=== PATIENT | female | born 1995 | race Caucasian/White ===

== ENCOUNTER 2019-03-31 14:32 | Emergency (ER) | payer BC, SELFPAY ==
[2019-03-31 14:41] VITALS: BP 105/67; PULSE 124; RESP 16; TEMP 37.9; O2SAT 100
--- NOTE | 2019-03-31 14:42 | ED.ABDPAIN ---
HPI - Abdominal Pain General Chief Complaint: Nausea/Vomiting/Diarrhea Stated Complaint: Abdominal pain,nausea,diarrhea Source: patient and RN notes reviewed Mode of arrival: ambulatory Limitations: no limitations History of Present Illness HPI narrative: This is a 23 years old female presented office for evaluation of diarrhea since yesterday. Diarrhea described as loose stool, very frequently, have more than 12 stools so far. Associated with lower abdominal pain/cramping, headache. Last meal intake at 1pm; able to keep food down. She had roast beef sandwich for lunch. She took 1 dose of Pepto-Bismol with no changes. Denies chance of . Denies sick contact. Related Data Home Medications Medication Instructions Recorded Confirmed loratadine [Claritin] 10 mg PO DAILY 03/31/19 03/31/19 montelukast [Singulair] 10 mg PO DAILY 03/31/19 03/31/19 norethindrone-e.estradiol-iron 1 tablet PO DAILY 03/31/19 03/31/19 [03/19 (28)] pantoprazole [Protonix] 40 mg PO DAILY 03/31/19 03/31/19 Allergies Allergy/AdvReac Type Severity Reaction Status Date / Time Cephalosporins Allergy Unknown Hives Verified 03/31/19 14:47 cobalt Allergy Unknown Unknown Verified 02/06/19 22:52 nickel Allergy Unknown Unknown Verified 02/06/19 22:52 Review of Systems Review of Systems: Narrative: CONSTITUTIONAL: Denies fever. Reports feeling weak. ENT: Denies congestion CARDIOVASCULAR: Denies chest pain RESPIRATORY: Denies cough GASTROINTESTINAL: Reports abdominal pain, nausea, diarrhea. Dnies bloody stools or vomiting. GENITOURINARY: Denies urinary symptoms SKIN: Denies rash MUSCULOSKELETAL: Denies acute back pain NEUROLOGIC: Denies lightheaded/passing out. Reports headache PMFSH Surgical History Surgical History Hx of tonsillectomy Family History Family History Mother Hypertension Grandparent Carcinoma of colon Family history of type 2 diabetes mellitus Social History Social History Smoking status: Never smoker Alcohol intake: never Gender identity (if verbalized by the patient): Female Comments At time of signature, I agree with nursing past medical, surgical, social and family history. There is no relevant family history pertinent to the presenting complaint. Exam Narrative: Exam Narrative: GENERAL: This is a well-nourished, well-developed patient,ill apparent but not in acute distress. EARS: External ears normal, auditory canals clear and without drainage, TMs normal without perforation. Hearing grossly intact. NOSE: External nose normal with no obvious nasal discharge, nares without redness, no rhinorrhea. THROAT: Mucous membranes moist, posterior pharynx clear. NECK: Neck supple, non-tender without lymphadenopathy, masses or thyromegaly. CARDIOVASCULAR: Regular rate and rhythm without murmurs, gallops, or rubs. RESPIRATORY: Clear to auscultation. Breath sounds equal bilaterally. No wheezes, rales, or rhonchi. GASTROINTESTINAL: Abdomen soft, tenderness throughout especially in right lower quadrant, nondistended. Bowel sounds are active. No rebound tenderness. No hepato-splenomegaly, or palpable masses. Patient is guarding, appears uncomfortable. NEURO: awake, alert, and oriented to person, place and time. There were no obvious focal neurologic abnormalities. Steady gait Juan Coma Scale Eye Opening: Spontaneous 4 Juan Coma Scale Motor: Obeys Commands 6 [place] Coma Scale Verbal: Oriented 5 Course Vital Signs Vital signs: Vital Signs Temperature 100.2 F H 03/31/19 14:41 Pulse Rate 124 H 03/31/19 14:41 Respiratory Rate 16 03/31/19 14:41 Blood Pressure 105/67 03/31/19 14:41 Pulse Oximetry 100 03/31/19 14:41 Temperature 100.2 F H 03/31/19 14:41 Pulse Rate 124 H 03/31/19 14:41 Respiratory Rate 16 03/31/19 14:41 Bloo
== END 2019-03-31 14:58 | disposition short-term general hospital (02) ==
PROVIDERS: Emergency Provider Nurse Practitioner; PCP Family Medicine
DX: E86.0 Dehydration (principal); R19.7 Diarrhea, unspecified
CPT/HCPCS: 99212; G0463

== ENCOUNTER 2019-03-31 15:13 | Emergency (ER) | payer BC, SELFPAY ==
--- NOTE | ~2019-03-31 | CT_ITS ---
EXAMINATION: CT abdomen pelvis w con DATE: 03/31/2019 17:10 INDICATION: Right lower quadrant pain. Fever. Tachycardia. TECHNIQUE: Computed tomography (CT) of the abdomen and pelvis was performed with 100 cc Omnipaque 350 intravenous contrast. The dose-length product was 273.12 mGy-cm. Automated exposure control and iter ative reconstruction technique were employed. COMPARISON: None. FINDINGS: Lung bases unremarkable. No significant pleural or pericardial effusion. Heart size is norm al. The liver, spleen, pancreas, adrenal glands and kidneys are unremarkable. Gallbladder is present. No significant vascular abnormality. Mildly prominent left periaortic lymph nodes are likely reactive. N o abnormal pelvic masses or fluid collections. Bladder is unremarkable. No bowel obstruction. The russell endix is not positively visualized. There is no pericecal inflammatory change to suggest appendiciti s. There is mild thickening of the descending and sigmoid colon, suspicious for colitis. No acute oss eous abnormality. IMPRESSION: 1. Mild thickening of the descending and sigmoid colon, suspicious for colitis, possibly infectious o r inflammatory. Reviewed, dictated and finalized at location A. LE WORKER IMPRESSION: 1. Mild thickening of the descending and sigmoid colon, suspicious for colitis, possibly infectious or inflammatory.
[2019-03-31 15:15] VITALS: BP 102/80; PULSE 131; RESP 16; TEMP 37.6; O2SAT 100
[2019-03-31 15:38] LABS: Basophils Percent Auto 0.3 % (0.2-1.2); Eosinophils Absolute Auto 0.1 K/mm3 (0-0.3); Eosinophils Percent Auto 0.5 % (0-4.4); Hemoglobin 13.7 g/dL (12.0-15.0); Immature Granulocyte Absolute 0.07 K/mm3 (0.00-0.031); Immature Granulocyte Percent A 0.5 % (0-0.5); Lymphocytes Absolute Auto 1.68 K/mm3 (0.9-3.2); Lymphocytes Percent Auto 12.7 % (18.3-44.2); Mean Corpuscular HGB Conc 31.1 g/dl (32-36); Mean Platelet Volume 9.6 fl (7.4-10.4); Monocytes Absolute Auto 0.5 K/mm3 (0.1-0.6); Monocytes Percent Auto 3.9 % (2.6-8.5); Neutrophils Absolute Auto 10.9 K/mm3 (1.3-6.7); Neutrophils Percent Auto 82.1 % (45.5-73.1); Platelet Count Result 317 k/mm3 (150-375); Red Blood Count 4.89 M/mm3 (4.2-5.4); Red Cell Distribution Width 12.8 % (11.5-14.5); White Blood Count 13.3 K/mm3 (4.5-10.0)
[2019-03-31 15:44] LABS: Alanine Aminotransferase 15 U/L (4-35); Albumin Level 4.7 g/dL (3.5-5.1); Alkaline Phosphatase 81 U/L (38-126); Aspartate Amino Transferase 25 U/L (14-36); Bilirubin,Total 0.8 mg/dL (0.2-1.3); Blood Urea Nitrogen 10 mg/dL (7-17); Calcium 9.3 mg/dL (8.4-10.2); Carbon Dioxide 23 mmol/L (22-30); Chloride 97 mmol/L (98-107); Estimated CRCL calculation 90 ml/min; Estimated Glomerular Filt Rate > 60; Glucose 102 mg/dL (65-105); Lipase 70 U/L (23-300); Potassium 3.3 mmol/L (3.4-5.0); Sodium 137 mmol/L (137-145)
[2019-03-31 15:56] LABS: Add Urine Microscopic? YES; Appearance Urine Clear (Clear); Bilirubin Urine Negative (Negative); Blood Urine 1+ (Negative); Color Urine Yellow (Yellow); Glucose Urine UA Negative (Negative); Ketones Urine Negative (Negative); Leukocyte Esterase Ur 2+ LEU/UL (Negative); Mucus Urine Few /lpf; Nitrate Urine Negative (Negative); Protein Urine 1+ mg/dL (Negative); Squamous Epithelial Cell Urine Many /hpf (Few); Urobilinogen Urine Negative mg/dL (<2.0)
[2019-03-31 16:07] LABS: Specific Grav Ur 1.035 (1.001-1.035)
--- NOTE | 2019-03-31 16:23 | ED.ABDPAIN ---
HPI - Abdominal Pain General Chief Complaint: Abdominal Pain Stated Complaint: abd cramping Time Seen by Provider: 03/31/19 16:13 Source: patient and RN notes reviewed Mode of arrival: ambulatory Limitations: no limitations History of Present Illness HPI narrative: Pt is a 23 y/o female presenting to the ED c/o ABD pain. Pt reports she started experiencing diffuse ABD pain worst in her RLQ yesterday. Pt also reports low grade fever, nausea, and diarrhea, but denies vaginal discharge or abnormal vaginal bleeding. Pt states she ended her menstrual cycle last . Pt also denies a Hx of ovarian cyst. 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 Pertinent past history: none Onset (ago): day(s) (1) Location: diffuse Associated symptoms: nausea, diarrhea and fever (Low grade) Related Data Home Medications Medication Instructions Recorded Confirmed loratadine [Claritin] 10 mg PO DAILY 03/31/19 03/31/19 montelukast [Singulair] 10 mg PO DAILY 03/31/19 03/31/19 norethindrone-e.estradiol-iron 1 tablet PO DAILY 03/31/19 03/31/19 [03/19 (28)] pantoprazole [Protonix] 40 mg PO DAILY 03/31/19 03/31/19 Allergies Allergy/AdvReac Type Severity Reaction Status Date / Time Cephalosporins Allergy Unknown Hives Verified 03/31/19 14:47 cobalt Allergy Unknown Unknown Verified 02/06/19 22:52 nickel Allergy Unknown Unknown Verified 02/06/19 22:52 Review of Systems Review of Systems: Narrative: CONSTITUTIONAL: Reports low grade fever. GASTROINTESTINAL: Reports diffuse ABD pain worst in RLQ, diarrhea, and nausea. GENITOURINARY: Denies vaginal discharge or abnormal vaginal bleeding. All systems reviewed & are unremarkable except as noted in HPI and below PMFSH Past Medical History Medical History Seasonal allergies Surgical History Surgical History H/O wisdom tooth extraction Hx of tonsillectomy Family History Family History Mother Hypertension Grandparent Carcinoma of colon Family history of type 2 diabetes mellitus Social History Social History Smoking status: Never smoker Alcohol intake: never Gender identity (if verbalized by the patient): Female Exam Narrative: Exam Narrative: GENERAL: Well-appearing, well-nourished, and in no acute distress. EYES: EOMI. NECK: Supple. CHEST: Clear to auscultation. No respiratory distress. HEART:Tachycardic rate and rhythm. No murmur heard. Normal peripheral pulses. ABDOMEN: Soft, RLQ tenderness, nondistended, normal active bowel sounds. Positive Rovsing's sign. EXTREMITIES: Normal range of motion. No edema. SKIN: Warm, dry, no rash. NEURO: No focal deficits. Alert and oriented. Course Course Emergency Course: Patient presented for evaluation of abdominal pain. At the time of initial assessment, ABCs are intact and vital signs are stable. Vital signs are notable for tachycardia. Patient is not febrile. IV access obtained and labs are drawn. Patient was given 2 L of IV fluids, antiemetic and pain medication with good improvement in her symptoms. Patient with a leukocytosis. Very mild hypokalemia. No UTI. CT scan concerning for colitis. No evidence of appendicitis despite clinical symptoms. Patient was reassessed and felt much improved. Her tachycardia had improved. She is able to tolerate oral intake without vomiting. I did call general surgeon who reviewed her CT scan, spoke with him about clinical findings, and he feels that her exam is probably consistent with colitis and not with appendicitis at this point. Shared decision-making occurred with the patient and family, she opted for discharge home with oral antibiotics, and to return if her pain worsens or she has any other concerning symptoms. Patient was then discharged home in stable condition. Vital Signs Vital signs: Vital
[2019-03-31] MEDS: DICYCLOMINE HCL INJ 20 MG/2 ML VIAL IM (16:44)
[2019-03-31] MEDS: MORPHINE SULFATE 4 MG/ML INJ IV PUSH (16:50)
[2019-03-31] MEDS: METOCLOPRAMIDE HCL INJ 10 MG/2 ML VIAL IV PUSH (16:50)
[2019-03-31] MEDS: SODIUM CHLORIDE 0.9% IV 1,000 ML 999 ML IV CONT ×2 (16:54→16:55)
[2019-03-31] MEDS: metroNIDAZOLE 500 MG/ISO 100ML 500 MG/100 ML BAG 100 MG IVPB (18:20)
[2019-03-31 18:50] VITALS: BP 101/62; PULSE 115; RESP 14; TEMP 37.7; O2SAT 100
[2019-03-31] MEDS: POTASSIUM CHLORIDE 20 MEQ PACKET (FOR LIQUID) 40 MEQ PO (18:57)
[2019-03-31] MEDS: levoFLOXacin 500 MG/D5W 100 ML 500 MG/100 ML BAG 100 MG IVPB (19:06)
--- NOTE | 2019-03-31 19:07 | PC.NURSE ---
Pt. requested 2nd IV to have 2nd ABX running. EDP notified and is ok with request.
[2019-03-31] MEDS: ONDANSETRON INJ 4 MG/2 ML VIAL IV PUSH (19:34)
--- NOTE | 2019-04-05 08:52 | PC.NURSE ---
LATE ENTRY This note is being entered to document information to the patient's record. The following information was omitted on [03/31/19], by [Maged Bangura]. Pt. antibiotic infused at 1950.
== END 2019-03-31 21:14 | disposition home or self-care (01) ==
PROVIDERS: Emergency Medicine; Emergency Provider Emergency Medicine; PCP Family Medicine
DX: K52.9 Noninfective gastroenteritis and colitis, unspecified (principal); E86.0 Dehydration
CPT/HCPCS: 36415; 74177; 80053; 81001; 81025; 83690; 85025; 96361; 96365; 96367; 96372; 96375; 99284; A9270; J0500; J1956; J2270; J2405; J2765; J7030; Q9967

== ENCOUNTER 2019-06-06 10:22 | Emergency (ER) | payer BC, SELFPAY ==
[2019-06-06 10:28] VITALS: BP 137/81; PULSE 113; RESP 20; TEMP 36.4; O2SAT 100
--- NOTE | 2019-06-06 10:41 | ED.URI ---
HPI - URI/Sore Throat General Chief Complaint: Upper Respiratory Infection Stated Complaint: sore throat History of Present Illness HPI Narrative: This is a 23 year old that comes in with a sore throat that she has had for 7 days patient was put on zpak Tuesday but has come in because she come in due to patient states that her throat is worse and has white stuff on her tonsils . Patient denies fever, shortness of breath just pain . Related Data Home Medications Medication Instructions Recorded Confirmed loratadine [Claritin] 10 mg PO DAILY 03/31/19 03/31/19 montelukast [Singulair] 10 mg PO DAILY 03/31/19 03/31/19 norethindrone-e.estradiol-iron 1 tablet PO DAILY 03/31/19 03/31/19 [03/19 (28)] pantoprazole [Protonix] 40 mg PO DAILY 03/31/19 03/31/19 alendronate-vitamin D3 1 tablet PO WEEKLY 06/06/19 06/06/19 azithromycin 06/06/19 Allergies Allergy/AdvReac Type Severity Reaction Status Date / Time Cephalosporins Allergy Unknown Hives Verified 03/31/19 14:47 cobalt Allergy Unknown Unknown Verified 02/06/19 22:52 nickel Allergy Unknown Unknown Verified 02/06/19 22:52 Review of Systems Review of Systems: Narrative: CONSTITUTIONAL: Denies fever, chills, or sweats. EYES: Denies visual changes, redness, or discharge. ENT: Denies rhinorrhea, congestion, positive sore throat, or otalgia. CARDIOVASCULAR:Denies chest pain, palpitations, or edema. RESPIRATORY: Denies cough or dyspnea. GASTROINTESTINAL: Denies abdominal pain, nausea, vomiting, or diarrhea. GENITOURINARY: Denies dysuria or hematuria. SKIN:Denies rash or itching. MUSCULOSKELETAL:Denies back pain, joint pain, or myalgia. NEUROLOGIC: Denies headache, numbness, or weakness. PSYCHIATRIC:Denies anxiety or depression [facility] Social History Social History Smoking status: Never smoker Alcohol intake: never Gender identity (if verbalized by the patient): Female Comments At time as signature, I have reviewed and agree with nursing past medical, social, surgical and family history. Please see nursing chart for further information. There is no relevant family history pertinent to the presenting complaint. Exam Narrative: Exam Narrative: GENERAL:Well-appearing, well-nourished, and in no acute distress. HEAD:Normocephalic, atraumatic. EYES: PERRLA and EOMI. ENT: Nares clear, no rhinorrhea or epistaxis. Mucous membranes moist. Pharyngeal erythema left-sided tonsil exudate NECK: Supple. CHEST: Clear to auscultation. No respiratory distress. HEART: Regular rate and rhythm. No murmur heard. Normal peripheral pulses. ABDOMEN: Soft, nontender, nondistended, normal active bowel sounds. EXTREMITIES: Normal range of motion. No edema. SKIN: Warm, dry, no rash. NEURO: No focal deficits. Alert and oriented x3. Course OFFICE ADMINISTRATIVE ASSISTANT/PA Physician Supervision Discussed with patient about gargling warm salt water changing her toothbrush inform patient that she needs to take the antibiotics Tylenol for the pain Vital Signs Vital signs: Vital Signs Temperature 97.6 F 06/06/19 10:28 Pulse Rate 113 H 06/06/19 10:28 Respiratory Rate 06/06/19 10:28 Blood Pressure 137/81 06/06/19 10:28 Pulse Oximetry 100 06/06/19 10:28 Temperature 97.6 F 06/06/19 10:28 Pulse Rate 113 H 06/06/19 10:28 Respiratory Rate 20 06/06/19 10:28 Blood Pressure 137/81 06/06/19 10:28 Pulse Oximetry 100 06/06/19 10:28 MDM - URI/Sore Throat Differential Diagnosis Differential diagnosis: Likely upper respiratory infection, viral infection, pharyngitis and other (Strep throat already being treated for on antibiotics) Discharge Plan Discharge Clinical Impression: Exudative pharyngitis Patient Disposition: Home, Self-Care Condition: Stable Instructions: Antibiotic Form, Pharyngitis (ED) Additional Instructions: Your strep test today was negative. Salt water gargles may alleviate some of your throat discomfort.
== END 2019-06-06 11:04 | disposition home or self-care (01) ==
PROVIDERS: Emergency Provider Nurse Practitioner Family; PCP Family Medicine
DX: J02.9 Acute pharyngitis, unspecified (principal)
CPT/HCPCS: 87081; 87880; 99213; G0463

== ENCOUNTER 2021-11-28 14:30 | Emergency (ER) | payer BC, SELFPAY ==
--- NOTE | ~2021-11-28 | XR_ITS ---
EXAMINATION: XR chest 2V Exam Date/Time: 11/28/2021 15:20 CDT HISTORY: chest pain Comparison: None available. RESULT: Lines, tubes, and devices: None. Lungs and pleura: Clear. Cardiomediastinal silhouette: Normal. Other: No acute osseous or upper abdominal finding. IMPRESSION: No acute cardiopulmonary process. Reviewed, dictated and finalized at location K.
[2021-11-28 14:37] VITALS: BP 157/99; PULSE 93; RESP 21; TEMP 36.7; O2SAT 100
--- NOTE | 2021-11-28 15:22 | ECG_ITS ---
Measurements Intervals [place] Rate: 71 P: 48 VT: 146 QRS: 72 QRSD: 92 T: 37 QT: 374 QTc: 409 Interpretive Statements SINUS RHYTHM NO PREVIOUS ECG AVAILABLE FOR COMPARISON Electronically Signed On 11-29-2021 17:36:14 CDT by Bc De La Cruz M.D.
--- NOTE | 2021-11-28 16:22 | ED.SOB ---
HPI - SOB/Dyspnea General Chief Complaint: Shortness of Breath/Dyspnea Stated Complaint: chest pressure, shaky Time Seen by Provider: 11/28/21 14:53 History of Present Illness HPI Narrative: 26-year-old female presents to the emergency room for evaluation of chest tightness, to please numbness to hands and feet and lips, and rapid breathing. Patient states that she was returning from her nieces birthday constitution party when the symptoms began. Patient denies any no known life stressors. Presently patient is alert and oriented x4 and her symptoms have resolved. Denies heavy alcohol use or recreational drug use. No known history of DVT or PEs. Related Data Home Medications Medication Instructions Recorded Confirmed montelukast 10 mg tablet 10 mg PO DAILY 03/31/19 03/31/19 (Singulair) pantoprazole 40 mg tablet,delayed 40 mg PO DAILY 03/31/19 03/31/19 release (Protonix) cetirizine 10 mg tablet (Zyrtec) 10 mg PO DAILY PRN 11/27/20 Allergies Allergy/AdvReac Type Severity Reaction Status Date / Time Cephalosporins Allergy Unknown Hives Verified 11/27/20 09:39 cobalt Allergy Unknown Unknown Verified 11/27/20 09:39 nickel Allergy Unknown Unknown Verified 11/27/20 09:39 Review of Systems Review of Systems: CONSTITUTIONAL: Denies fever, chills, or sweats. EYES: Denies visual changes, redness, or discharge. ENT: Denies rhinorrhea, congestion, sore throat, or otalgia. CARDIOVASCULAR: Reports chest pain RESPIRATORY: Reports dyspnea. GASTROINTESTINAL: Denies abdominal pain, nausea, vomiting, or diarrhea. GENITOURINARY: Denies dysuria or hematuria. SKIN: Denies rash or itching. MUSCULOSKELETAL: Denies back pain, joint pain, or myalgia. NEUROLOGIC: Reports numbness and toes, fingers and lips PSYCHIATRIC: Denies anxiety or depression. [facility] Past Medical History Medical History (Updated 11/28/21 @ 17:14 by Franky Rodriguez APRN) Seasonal allergies Surgical History Surgical History H/O esophagogastroduodenoscopy H/O wisdom tooth extraction Hx of tonsillectomy S/P surgery on nasal septum Family History Family History Mother Hypertension Grandparent Carcinoma of colon Family history of type 2 diabetes mellitus Social History Social History Smoking status: Never smoker Alcohol intake: never Gender identity (if verbalized by the patient): Female Exam Narrative: GENERAL: Well-appearing, well-nourished, no physical limitations, and in no acute distress. HEAD: Normocephalic, atraumatic. EYES: Conjunctivae normal, PERRLA and EOMI. CHEST: Clear to auscultation. No respiratory distress. No wheezes rales or rhonchi. No tenderness. HEART: Regular rate and rhythm. No murmur heard. Normal peripheral pulses. EXTREMITIES: Normal range of motion. No edema. No clubbing or cyanosis SKIN: Warm, dry, no rash. No noted wounds NEURO: No focal deficits. Alert and oriented x3. MAEW. CN's II-XI intact bilaterally, normal gait PSYCH: Cooperative. Appears anxious Course Vital Signs Vital signs: Vital Signs Temperature 36.7 C 11/28/21 14:37 Pulse Rate 93 11/28/21 14:37 Respiratory Rate 21 H 11/28/21 14:37 Blood Pressure 157/99 H 11/28/21 14:37 Pulse Oximetry 100 11/28/21 14:37 Oxygen Delivery Room Air 11/28/21 14:37 Temperature 36.7 C 11/28/21 14:37 Pulse Rate 93 11/28/21 14:37 Respiratory Rate 21 H 11/28/21 14:37 Blood Pressure 157/99 H 11/28/21 14:37 Pulse Oximetry 100 11/28/21 14:37 Oxygen Delivery Room Air 11/28/21 15:03 MDM - SOB/Dyspnea Lab Data Labs: Lab Results 11/28/21 11/28/21 Range/Units 15:47 15:49 D-Dimer < 0.27 (<0.48) ug/mL Troponin I < 0.012 (0.000-0.034) ng/mL TSH 2.330 (0.465-4.680) uIU/mL Discharge Plan Discharge Clinical Impression: Anxiety Patient Disposit
[2021-11-28 16:29] LABS: D Dimer < 0.27 ug/mL (<0.48)
[2021-11-28 16:32] LABS: Troponin I < 0.012 ng/mL (0.000-0.034)
[2021-11-28 17:37] VITALS: BP 126/87; PULSE 62; RESP 14; O2SAT 99
== END 2021-11-28 17:38 | disposition home or self-care (01) ==
PROVIDERS: Emergency Provider Nurse Practitioner Family; PCP Family Medicine
DX: F41.9 Anxiety disorder, unspecified (principal)
CPT/HCPCS: 36415; 71046; 84443; 84484; 85380; 93005; 99284

== ENCOUNTER 2022-04-07 17:34 | Outpatient (CLI) | payer OTHER, SELFPAY ==
--- NOTE | ~2022-04-07 | XR_ITS ---
Right foot Technique: AP and lateral views were obtained. Clinical History: Pain Findings: No acute fracture or dislocation is seen. Osseous alignment is anatomic. Joint spaces are p reserved without erosive or degenerative change. Soft tissues are unremarkable. Impression: Unremarkable right foot radiographs. Reviewed, dictated and finalized at [facility]. ME CLEANER Impression: Unremarkable right foot radiographs.
== END 2022-04-07 17:35 | disposition home or self-care (01) ==
LOC: ANHIMG 17:37
PROVIDERS: PCP Family Medicine; Visit Provider Family Medicine
DX: S99.929A Unspecified injury of unspecified foot, initial encounter (principal); X58.XXXA Exposure to other specified factors, initial encounter
CPT/HCPCS: 73620

== ENCOUNTER 2023-01-15 13:17 | Emergency (ER) | payer OTHER, SELFPAY ==
--- NOTE | ~2023-01-15 | XR_ITS ---
EXAMINATION: XR ankle LT min 3V DATE: 01/15/2023 13:43 INDICATION: Left ankle pain. Fall. TECHNIQUE: 4 views of left ankle were obtained. COMPARISON: Left foot radiographs 05/21/2013 FINDINGS: Bone alignment is normal. No fracture. Joint spaces are normal. IMPRESSION: 1. Normal left ankle. Reviewed, dictated and finalized at location A. T OF HOUSE MANAGER IMPRESSION: 1. Normal left ankle.
[2023-01-15 13:34] VITALS: BP 131/91; PULSE 84; RESP 16; TEMP 36.6; O2SAT 100
--- NOTE | 2023-01-15 13:51 | ED.LOWEXIN ---
HPI - Extremity Injury (Lower) General Chief Complaint: Extremity Injury, Lower Stated Complaint: lt ankle injury Time Seen by Provider: 01/15/23 13:51 Source: patient, RN notes reviewed and old records reviewed Mode of arrival: ambulatory Limitations: no limitations History of Present Illness HPI Narrative: 27-year-old female presents to the [facility] with complaints of left ankle and foot pain. Patient states that she was standing on the side of the bath tub painting the bathroom when she slipped fell hitting the lateral aspect of the ankle. No swelling noted. Mild bruising noted to the lateral aspect of the foot. No tenderness of the lateral malleolus. Pain worse with standing and with movement. Unable to reproduce pain with palpation. Onset (ago): hour(s) Treatments prior to arrival: cold therapy Related Data Home Medications Medication Instructions Recorded Confirmed cetirizine 10 mg tablet (Zyrtec) 10 mg PO DAILY PRN Allergy Symptoms 11/27/20 01/15/23 escitalopram oxalate 10 mg tablet 10 mg PO DAILY 10/05/22 01/15/23 Allergies Allergy/AdvReac Type Severity Reaction Status Date / Time Cephalosporins AdvReac Mild Hives Verified 01/15/23 13:50 cobalt AdvReac Mild Hives Verified 01/15/23 13:50 nickel AdvReac Mild Hives Verified 01/15/23 13:50 Review of Systems Review of Systems: All systems reviewed & are unremarkable except as noted in HPI and below Constitutional: Constitutional: Reports no additional constitutional complaints Eyes: Eyes: Reports no additional eye complaints ENT: Reports system reviewed and no additional complaints, except as documented Cardiovascular: Cardiovascular: Reports no additional cardiovascular complaints, Denies chest pain and Denies dyspnea Respiratory: Respiratory: Reports no additional respiratory complaints, Denies chest congestion, Denies cough and Denies dyspnea Gastrointestinal: Gastrointestinal: Reports no additional gastrointestinal complaints, Denies abdominal pain, Denies nausea and Denies vomiting Musculoskeletal: Musculoskeletal: Reports as per HPI Integumentary/Breasts: Skin/Breast: Reports system reviewed and no additional complaints, except as docu Neurologic: Reports system reviewed and no additional complaints, except as documented Psychiatric: Psychiatric: Reports no additional psychiatric complaints Allergic/Immunologic: Allergic/Immunologic: Reports no additional allergic/immunologic complaints PMFSH Past Medical History Medical History Fibroid Generalized anxiety disorder GERD (gastroesophageal reflux disease) Oral contraceptive pill surveillance PCOS (polycystic ovarian syndrome) Seasonal allergies Surgical History Surgical History H/O esophagogastroduodenoscopy H/O wisdom tooth extraction Hx of tonsillectomy S/P surgery on nasal septum Family History Family History Mother Hypertension Grandparent Carcinoma of colon Family history of type 2 diabetes mellitus Social History Social History Smoking status: Never smoker Alcohol intake: current Alcohol use details: Rarely Substance use: never Lack of Transportation: No Lack of Food: Never True Current Housing: I Have Housing Concerned About Future Housing: No Difficulty Paying Gas/Electric Bills: No Difficulty Paying for Meds: No Currently Unemployed: No Education: Bachelor's Degree Difficulty w/ Childcare or Family Care: No Living arrangements: with family Occupation/Education: occupation Gender identity (if verbalized by the patient): Female Sexual Orientation (if Verbalized by the Patient): Straight or Heterosexual Comments At the time of my signature, I reviewed and agree with the nursing past medical, surgical, social, and family h
== END 2023-01-15 14:10 | disposition home or self-care (01) ==
PROVIDERS: Emergency Provider Nurse Practitioner; PCP Family Medicine
DX: S90.02XA Contusion of left ankle, initial encounter (principal); S90.32XA Contusion of left foot, initial encounter; S93.402A Sprain of unspecified ligament of left ankle, initial encounter; W17.89XA Other fall from one level to another, initial encounter; K21.9 Gastro-esophageal reflux disease without esophagitis; E28.2 Polycystic ovarian syndrome; F41.1 Generalized anxiety disorder
CPT/HCPCS: 73610; 99213; G0463

== ENCOUNTER 2024-07-30 12:20 | Outpatient (CLI) | payer OTHER, SELFPAY ==
--- NOTE | ~2024-07-30 | US_ITS ---
EXAMINATION: US OB <= 14 weeks fetus DATE: 07/30/2024 13:07 INDICATION: . Inconclusive viability. Cramping. TECHNIQUE: Real-time transabdominal and transvaginal obstetric ultrasound. FINDINGS: No prior studies for comparison. The uterus measures 12.6 x 7.6 x 9.4 cm. Along the right side of the uterus there is a hypoechoic mas s measuring 3.2 x 4.1 x 2.7 cm., Possibly a subchorionic hemorrhage or uterine fibroid. There is an i ntrauterine gestational sac, with pole identified. The crown rump length measures 6.3 cm, whic h correlates with a estimated gestational age of 12 weeks 5 days. heart tones are identified measuring 160 BPM. The ovaries are within normal limits. IMPRESSION: 1. SL IUP with an EGA of 12 weeks, 5 days (EDC by current ultrasound of 02/06/2025). 2: Hypoechoic area along the right side of the uterus measuring 3.2 x 4.1 x 2.7 cm. Differential moriah gnosis includes subchorionic hemorrhage and uterine fibroid. Reviewed, dictated and finalized at location A. IMPRESSION: 1. SL IUP with an EGA of 12 weeks, 5 days (EDC by current ultrasound of 025). 2: Hypoechoic area along the right side of the uterus measuring 3.2 x 4.1 x 2. 7 cm. Differential diagnosis includes subchorionic hemorrhage and uterine fibro id.
--- OUTSIDE RECORDS SUMMARY | 2024-07-30 12:25 | XMS_ITS | Clinical Summary ---
Author Organization [facility] Address [address] [place] [address] Care Team Providers Care Bingo Clerk Name Role Phone Rocael Burr MD Primary Care Provider [phone] Source Comments [facility],non-owned Affiliates and Associated Physician Practices is amultiple site organization consisting of ambulatory clinics and hospital sitesin [place], [place], [place] and [place]. This disclosure is being madepursuant to the Care Everywhere program and may not contain all information available regarding this patient. Last updated 17.[facility] Allergies Active Allergy Reactions Criticality Noted Date Comments Cephalosporins Rash Low 05/09/2012 [place] Rash Low 05/09/2012 Nickel Rash Low 05/09/2012 Medications * Be aware that medications may not be up to date on this document. Alwaysverify current medications with the patient. No known medications Active Problems No known active problems Family History Medical History Relation Name Comments Osteoporosis Maternal Aunt Relation Name Status Comments Maternal Aunt Social History Tobacco Use Types Packs/Day Years Used Date Smoking Tobacco: Never Alcohol Use Standard Drinks/Week Comments No 0 (1 standard drink = 0.6 oz pur e alcohol) Comments No Sex and Gender Information Value Date Recorded Sex Assigned at Not on file Legal Sex Female 5:38 AM [employer] SCI[employer] Gender Identity Not on file Sexual Orientation Not on file Plan of Treatment Health Maintenance Due Date Last Done Comments PAP SMEAR 1996 HIV SCREENING 05/12/2011 HEPATITIS C SCREENING 05/07/2014 DTAP/TDAP/TD VACCINES (1 - Tdap) 05/12/2015 HEPATITIS B VACCINE (1 of 3 - 19+ 3-dose series) 05/12/2015 COVID-19 VACCINE (3 - 2023-2 5 season) 2023 03/12/2020, 02/20/2020 DEPRESSION SCREENING 02/29/2024 INFLUENZA VACCINE (Season Ended) 2024 12/02/2020, 12/18/2019 ZOSTER VACCINE (1 of 2) 2046 HIB VACCINE Aged Out No longer eligi ble based on patient's age to complete this topic HPV VACCINE Aged Out No longer eligi ble based on patient's age to complete this topic MENINGOCOCCAL (Group B) VACCINE SHARED DECISION-MAKING Aged Out No longer eligible based on patient's age to complete this topic MENINGOCOCCAL GROUPS A/C/Y/W VACCINE Aged Out No longer eligible b ased on patient's age to complete this topic PNEUMOCOCCAL VACCINE Aged Out No long er eligible based on patient's age to complete this topic Insurance [facility] Care Teams Bingo Clerk Relationship Specialty Start Date End Date Rocael Burr MD PCP - General Family Medicine 04/24/12
--- OUTSIDE RECORDS SUMMARY | 2024-07-30 12:25 | XMS_ITS | Clinical Summary ---
Author Organization [facility] Address [address] [place] [address] Care Team Providers Care Professor Of Graphic Design Name Role Phone Rocael Burr MD Primary Care Provider [phone] Allergies Active Allergy Reactions Criticality Noted Date Comments Cephalosporins Rash Medium 05/09/2012 Rutland Rash Medium 05/09/2012 Nickel Rash Medium 05/09/2012 Medications * This document contains information received from the source organization and may not represent a complete record from that organization. pantoprazole DR (PROTONIX) 40 mg EC tabletIndication s:Eosinophilic esophagitis Take 1 tablet (40 mg total) by mouth daily 90 tablet 2 Active cetirizine (ZyrTEC) 10 mg capsule Active progesterone 50 mg/mL injection Inject 25mg to 100mg IM daily as directed by 20 mL 2 5 Active estradioL (ESTRACE) 2 mg tablet TAKE 1 TABLET BY MOUTH 2 TIMES A DAY. 180 tablet 1 5 Active 25/iron fum/folic/dha (-1 ORAL) Take 1 tablet/capsul e by mouth daily Active escitalopram (LEXAPRO) 5 mg tablet Take 1 tablet (5 mg total) by mouth daily Active Active Problems Problem Noted Date Diagnosed Date Encounter for assisted repro ductive fertility procedure cycle 05/18/2024 Diarrhea 02/12/2021 Overview (02/12/2021): Added automatically from request for surgery [id number] Epigastric pain 02/12/2021 Overview (02/12/2021): Added automatically from request for surgery [id number] Colitis 02/12/2021 Overview (02/12/2021): Added automatically from request for surgery [id number] Multiple food allergies 03/05/2019 Eosinophilic esophagitis 08/22/2018 Environmental allergies 02/16/2018 GERD (gastroesophageal reflux disease) 8 Food impaction of esophagus 10/03/2017 Comments Yes Encounters Date Type Department Care Team Description 06/22/2024 1:20 PM CDT Office Visit [facility] Reproductive Endocrinology [address] [place] [phone] Rebecca Quintana NP Supervision of resulting from assisted reproductive technology, unspecified trimester (Primary Dx) 06/22/2024 12:45 PM CDT Ancillary Procedure [facility] Obstetrics and Gynecology [address] [place] [address] [address]rd Floor [address] [place] [phone] Supervision of resulting from assisted reproductive technology, unspecified trimester 06/11/2024 9:14 AM CDT - 06/11/2024 11:59 PM CDT Hospital Encounter [address] [address] Supervision of resulting from assisted reproductive technology, unspecified trimester Discharge Disposition: Discharge to home or self care 06/11/2024 6:40 AM CDT Clinical Support [facility] Reproductive Endocrinology Lab [address] [place] [phone] Supervision of resulting from assisted reproductive technology, unspecified trimester (Primary Dx) 06/11/2024 Results Follow-Up [facility] Reproductive Endocrinology [address] [place] [phone] Alejandro Mcclain MD Estradiol, Progesterone, hCG, blood, quantitative 06/07/2024 1:44 PM CDT - 06/07/2024 11:59 PM CDT Hospital Encounter [address] [address] Encounter for test, result unknown Discharge Disposition: Discharge to home or self care 06/07/2024 7:10 AM CDT Clinical Support [facility] Rep[facility]ductive Endocrinology Lab [address] [place] [phone] Encounter for test, result unknown (Primary Dx) 06/07/2024 Results Follow-Up [facility] Reproductive Endocrinology [address] [place] [phone] Alejandro Mcclain MD hCG, blood, quantitative 06/04/2024 7:00 AM CDT Clinical Support [facility]ductive Endocr[facility]ology Lab [address] [place] [phone] In vitro fertilization (Primary Dx); Encounter for test, result unknown 06/04/2024 6:51 AM CDT - 06/04/2024 11:59 PM CDT Hospital Encounter [address] [address] Encounter for test, result unknown; In vitro fertilization Discharge Disposition: Discharge to home or self care 06/04/2024 Results Follow-Up [facility] Reproductive Endocrinology [address] [place] [phone] Alejandro Mcclain MD hCG, blood, quantitative, Estradiol, Progesterone 05/30/2024 7:24 AM CDT - 05/30/2024 11:59 PM CDT Hospital Encounter [address] [address] In vitro fertilization Discharge Disposition: Discharge to home or self care 05/30/2024 7:00 AM CDT Clinical Support [facility] Reproductive Endocrinology Lab [address] [place] [phone] In vitro fertilization (Primary Dx) 05/23/2024 11:50 AM CDT Office Visit [address] [address] Encounter for assisted reproductive fertility procedure cycle 05/23/2024 11:30 AM CDT Clinical Support [facility]ductive Endocrinology Lab [address] [place] [phone] In vitro fertilization (Primary Dx) 05/23/2024 11:24 AM CDT - 05/23/2024 11:59 PM CDT Hospital Encounter [address] [address] Encounter for assisted reproductive fertility procedure cycle (Primary Dx) Discharge Disposition: Discharge to home or self care 05/23/2024 6:22 AM CDT - 05/23/2024 11:59 PM CDT Hospital Encounter [address] [address] In vitro fertilization Discharge Disposition: Discharge to home or self care 05/22/2024 Telephone [facility] Reproductive Endocrinology [address] [place] [phone] Alejandro Mcclain MD 05/22/[address] [address] Elizabeth Bergeron RN Scheduling Testing/Treatment (Embryo Transfer Instructions) 05/19/[address] [address] Gonzalez Salgado RN Treatment Plan Update (Postoperative check up and fertilization update) 05/18/2024 7:40 AM CDT Anesthesia Event [address] [address] Chrystal Lowery MD PhD 05/18/2024 7:30 AM CDT Ancillary Procedure [address] [address] Encounter for assisted reproductive fertility procedure cycle 05/18/2024 6:28 AM CDT - 05/18/2024 11:59 PM CDT Hospital Encounter [address] [address] Encounter for assisted reproductive fertility procedure cycle (Primary Dx) Discharge Disposition: Discharge to home or self care 05/16/2024 8:06 AM CDT - 05/16/2024 11:59 PM CDT Hospital Encounter [address] [address] In vitro fertilization Discharge Disposition: Discharge to home or self care 05/16/2024 7:00 AM CDT Clinical Support [facility] Reproductive Endocrinology Lab [address] [place] [phone] In vitro fertilization (Primary Dx) 05/16/2024 6:45 AM CDT Ancillary Procedure [facility] Obstetrics and Gynecology [address] [place] [address] Floor [address] [place] [phone] In vitro fertilization 05/16/[address] [address] Janene Asencio RN Scheduling Testing/Treatment (Trigger and egg retrieval instructions) 05/16/2024 Orders Only [address] [address] Janene Asencio RN Encounter for assisted reproductive fertility procedure cycle (Primary Dx) 05/14/2024 1:16 PM CDT - 05/14/2024 11:59 PM CDT Hospital Encounter [address] [address] In vitro fertilization Discharge Disposition: Discharge to home or self care 05/14/2024 7:30 AM CDT Clinical Support [facility] Rep[facility]ductive Endocrinology Lab [address] [place] [phone] In vitro fertilization (Primary Dx) 05/14/2024 7:15 AM CDT Ancillary Procedure [facility] Obstetrics and Gynecology [address] [place] [address] [place] [phone] In vitro fertilization 05/14/2024 Telephone [facility] Reproductive Endocrinology [address] [place] [address] [place] [phone] Tiffany Gonzales MD 05/12/2024 10:42 AM CDT - 05/12/2024 11:59 PM CDT Hospital Encounter [address] [address] In vitro fertilization Discharge Disposition: Discharge to home or self care 05/12/2024 8:00 AM CDT Clinical Support [facility]ductive Endocr[facility]ology Lab [address] [place] [phone] In vitro fertilization (Primary Dx) 05/12/2024 7:45 AM CDT Ancillary Procedure [facility] Obstetrics and Gynecology [address] [place] [address] 3rd Floor [address] [place] [phone] In vitro fertilization 05/12/2024 Telephone [facility] Rep[facility]ductive Endocrinology [address] [place] [phone] Mara Robin MD IVF Instructions 05/10/2024 11:18 AM CDT - 05/10/2024 11:59 PM CDT Hospital Encounter [address] [address] In vitro fertilization Discharge Disposition: Discharge to home or self care 05/10/2024 8:30 AM CDT Clinical Support [facility]ductive Endocrinology Lab [address] [place] [phone] In vitro fertilization (Primary Dx) 05/10/2024 8:00 AM CDT Ancillary Procedure [facility] Obstetrics and Gynecology [address] [place] [address] [place] [phone] In vitro fertilization 05/10/2024 Telephone [facility] Reproductive Endocrinology [address] [place] [phone] Alejandro Mcclain MD 05/08/2024 2:12 PM CDT - 05/08/2024 11:59 PM CDT Hospital Encounter [address] [address] In vitro fertilization Discharge Disposition: Discharge to home or self care 05/08/2024 7:10 AM CDT Clinical Support [facility] Lab [address] [place] [phone] In vitro fertilization (Primary Dx) 05/08/2024 Telephone [facility] Reproductive Endocrinology [address] [place] [phone] Mara Robin MD 05/03/2024 9:52 AM LEACH TANK TENDER - 05/03/2024 11:59 PM LEACH TANK TENDER Hospital Encounter [facility] [address], [address] [place] [address] In vitro fertilization Discharge Disposition: Discharge to home or self care 05/03/2024 7:10 AM LEACH TANK TENDER Clinical Support [facility] Reproductive Endocrinology Lab [address] [place] [phone] In vitro fertilization (Primary Dx) 05/03/2024 7:00 AM LEACH TANK TENDER Ancillary Procedure [facility] Obstetrics and Gynecology [address] 3rd Floor [address] [place] [phone] In vitro fertilization 05/03/2024 Telephone [facility] Reproductive Endocrinology [address] [facility] [address] [place] [phone] Desirae Desir MD from Last 3 Months Immunizations Immunization Administration Dates Next Due Influenza, Trivalent, Cell C ulture-based MDCK, Preservative Free, Antibiotic Free, Intramuscular 12/07/2023 Surgical History Surgery Date Site/Laterality Comments TONSILLECTOMY 02/28/1999 - 02/28/2000 ESOPHAGOGASTRODUODENOSCOPY 09/28/2017 - 10/28/2017 Food impaction SEPTOPLASTY OVUM / OOCYTE RETRIEVAL 05/18/2024 EGG RETRIEVAL TRANSFER EMBRYO INTRAUTERINE 05/23/2024 EMBRYO TRANSFER 1 DAY 5 Medical History Medical History Date Comments Fibroid Family History Medical History Relation Name Comments TOVA disease Father Diabetes Mother TOVA disease Mother Hypertension Mother Relation Name Status Comments Father Mother Social History Tobacco Use Types Packs/Day Years Used Date Smoking Tobacco: Never Smokeless Tobacco: Never Alcohol Use Standard Drinks/Week Comments Yes 0 (1 standard drink = 0.6 oz pur e alcohol) occasional AUDIT-C Answer Date Recorded Q1: How often do you have a drink containing alc ohol? 2-4 times a month 04/28/2021 Q2: How many drinks containi ng alcohol do you have on a typical day when you are drinking? 1 or 2 04/28/2021 Q3: How often do you have si x or more drinks on one occasion? Never 04/28/2021 Personal Safety Answer Date Recorded Have you ever been in or are you currently in a harmful physical or emotional relationship or is someone making you feel afraid or unsafe? Denies 05/16/2024 Comments Yes Sex and Gender Information Value Date Recorded Sex Assigned at Female 05/02/2018 8:22 AM LEACH TANK TENDER Legal Sex Female 2:25 AM LEACH TANK TENDER Gender Identity Female 05/02/2018 8:22 AM LEACH TANK TENDER Sexual Orientation Straight 05/02/2018 8: 22 AM LEACH TANK TENDER Obstetrics History Para Term AB IAB SAB Ectopic Multiple Livin g Live Births 1 0 0 0 0 0 0 0 0 0 0 Date Outcome GA Total Labor Labor/2nd/3rd Weight Sex Type Anes PTL Tamara A1 A5 Name Clin Current Last Filed Vital Signs Vital Sign Reading Time Taken Comments Blood Pressure 121/84 06/22/2024 1:15 PM CDT Pulse 83 06/22/2024 1:15 PM CDT Temperature 36.6 C (97.9 F) 05/18/2024 8:16 AM CDT Respiratory Rate 14 05/18/2024 9:05 AM CDT Oxygen Saturation 97% 05/18/2024 9:05 AM CDT Inhaled Oxygen Concentration - - Weight 79.7 kg (175 lb 12.8 oz) 06/22/2024 1:15 PM CDT Height 160 cm (5' 3) 06/22/2024 1:15 PM CDT Body Mass Index 31.14 06/22/2024 1:15 PM CDT Plan of Treatment Health Maintenance Due Date Last Done Comments Cervical Cancer Screening 1996 Depression Screening 1996 Regular Well Visit/Exam 18-64 2014 DTaP/Tdap/Td Vaccine (7 - Td or Tdap) 03/25/2020 03/25/2010, 09/27/2001, 01/15/1998, Additional history exists Covid-19 Vaccine ( season) 2023 03/12/2020, 02/20/2020 Hepatitis B Screening Completed 1996 , 1996, 1996 Varicella Vaccines Completed 09/24/2006, 05/21/1997 Influenza Vaccine Completed 12/07/2023, , 12/18/2019, Additional history exists Hepatitis C Screening Completed 03/01/2024 HPV Vaccines Aged Out No longer eligi ble based on patient's age to complete this topic Pneumococcal vaccine <65 Aged Out No longer eligible based on patient's age to complete this topic Procedures Procedure Name Priority Date/Time Associated Diagnosis Comments US OB LIMITED Schedule Routine, Read Routine (OP Routine) 06/22/2024 12:37 PM CDT Supervision of resulting from assisted reproductive technology, unspecified trimester HCG, BLOOD, QUANTITATIVE Routine 06/11/2024 6:42 AM CDT Supervision of resulting from assisted reproductive technology, unspecified trimester PROGESTERONE Routine 06/11/2024 6:42 AM CDT Supervision of resulting from assisted reproductive technology, unspecified trimester ESTRADIOL Routine 06/11/2024 6:42 AM CDT Supervision of resulting from assisted reproductive technology, unspecified trimester HCG, BLOOD, QUANTITATIVE Routine 06/07/2024 7:03 AM CDT Encounter for test, result unknown PROGESTERONE Routine 06/04/2024 6:57 AM CDT In vitro fertilization ESTRADIOL Routine 06/04/2024 6:57 AM CDT In vitro fertilization HCG, BLOOD, QUANTITATIVE Routine 06/04/2024 6:57 AM CDT Encounter for test, result unknown PROGESTERONE Routine 05/30/2024 6:53 AM CDT In vitro fertilization ESTRADIOL Routine 05/30/2024 6:53 AM CDT In vitro fertilization PROGESTERONE Routine 05/23/2024 1:08 PM CDT In vitro fertilization ESTRADIOL Routine 05/23/2024 1:08 PM CDT In vitro fertilization US GUIDED EMBRYO TRANSFER Schedule Routine, Read Routine (OP Routine) 05/23/2024 11:24 AM CDT Encounter for assisted reproductive fertility procedure cycle US GUIDED OOCYTE RETRIEVAL Schedule Routine, Read Routine (OP Routine) 05/18/2024 6:28 AM CDT Encounter for assisted reproductive fertility procedure cycle PELVIS LIMITED Schedule Routine, Read Routine (OP Routine) 05/16/2024 6:50 AM CDT In vitro fertilization PROGESTERONE Routine 05/16/2024 6:45 AM CDT In vitro fertilization ESTRADIOL Routine 05/16/2024 6:45 AM CDT In vitro fertilization PELVIS LIMITED Schedule Routine, Read Routine (OP Routine) 05/14/2024 7:15 AM CDT In vitro fertilization ESTRADIOL Routine 05/14/2024 7:10 AM CDT In vitro fertilization PROGESTERONE Routine 05/14/2024 7:10 AM CDT In vitro fertilization PELVIS LIMITED Schedule Routine, Read Routine (OP Routine) 05/12/2024 7:37 AM CDT In vitro fertilization PROGESTERONE Routine 05/12/2024 7:34 AM CDT In vitro fertilization ESTRADIOL Routine 05/12/2024 7:34 AM CDT In vitro fertilization PELVIS LIMITED Schedule Routine, Read Routine (OP Routine) 05/10/2024 7:58 AM CDT In vitro fertilization PROGESTERONE Routine 05/10/2024 7:52 AM CDT In vitro fertilization ESTRADIOL Routine 05/10/2024 7:52 AM CDT In vitro fertilization PROGESTERONE Routine 05/08/2024 7:01 AM CDT In vitro fertilization ESTRADIOL Routine 05/08/2024 7:01 AM CDT In vitro fertilization PELVIS LIMITED Schedule Routine, Read Routine (OP Routine) 05/03/2024 7:05 AM LEACH TANK TENDER In vitro fertilization PROGESTERONE Routine 05/03/2024 6:56 AM LEACH TANK TENDER In vitro fertilization ESTRADIOL Routine 05/03/2024 6:56 AM LEACH TANK TENDER In vitro fertilization HEPATITIS C ANTIBODY Routine 03/01/2024 1:30 PM LEACH TANK TENDER Encounter for screening for infections with predominantly sexual mode of transmission from Last 3 Months or Most Recently Relevant to Health Maintenance Results * US Ob Limited (06/22/2024 12:37 PM CDT) Left Antral Follicle Count retrieval sites noted on ovary VIEWPOINT Right Antral Follicle Count retrieval sites noted on ovary possible para ovarian cysts noted within rt adnexa VIEWPOINT Anatomical Region Laterality Modality Abdomen N/A Ultrasound 06/22/2024 12:3 9 PM CDT Impressions 06/26/2024 7:44 AM CDT SLIUP size=dates; Subchorionic hemorrhage: 1.1 x 0.4 x 0.9 cm, 1.0 x 0.2 x 0.2 cm, 1.1 x 0.3 x 1.0 cm Narrative Procedure Note Alejandro Mcclain MD - 06/26/2024 IMPRESSION: SLIUP size=dates; Subchorionic hemorrhage: 1.1 x 0.4 x 0.9 cm, 1.0 x 0.2 x0.2 cm, 1.1 x 0.3 x 1.0 cm Alejandro Mcclain MD G OB US PROCEDURES Final Result * Progesterone (06/11/2024 6:42 AM CDT) Progesterone 58.75 ng/mL Comment: Interpretive Data Males: <0.15 ng/mL Females: Follicular <0.89 ng/mL Luteal 1.8 - 24.0 ng/mL Ovulation <12.0 ng/mL 1st Trimester 11.0 - 44.0 ng/mL 2nd Trimester 25.0 - 83.0 ng/mL 3rd Trimester 59.0 - 214.0 ng/mL Postmenopausal <0.13 ng/mL Current interpretive data was last revised 2017. Testing performed by: [facility], [address] [facility], [place]. [address] [place] [phone] Blood 06/11/2024 6:42 AM CDT 06/11/2024 11:17 AM CDT Alejandro Mcclain MD LAB BLOOD ORDERABLES Final Result Performing Organization Address [facility] de Phone Number [facility] Department [place] [address] * Estradiol (06/11/2024 6:42 AM CDT) Pathologist [facility] Estradiol 1,325.0 pg/mL Comment: Interpretive Data Males: 11 43 pg/mL Females: Premenopausal: 31 533 pg/mL Postmenopausal: < 50 pg/mL Patients treated with Fluvestrant (Faslodex) should be tested using an alternate assay such as LC-MS due to potential for cross-reactivity. Estradiol varies widely throughout the menstrual cycle. Current interpretive data was last revised 2023. Testing performed by: [facility], [address] [facility], [facility]. [address] [phone] Blood 06/11/2024 6:42 AM CDT 06/11/2024 11:17 AM CDT Alejandro Mcclain MD LAB BLOOD ORDERABLES Final Result Performing Organization Address [facility] de Phone Number [facility] Department [place] [address] * (ABNORMAL) hCG, blood, quantitative (06/11/2024 6:42 AM CDT) [facility] hCG, quant 2,969.0(H ) 0.0 - 5.0 IUnits/L Comment: Above normal(expected)range Interpretive Data Male: < 5 IU/L Non- premenopausal Female: <5 IU/L The Aida hCG Beta Quant assay procedure was used. Results from different manufacturers or methods may not be comparable. Serial testing should be performed using the same method. Interpretive Data was last revised on 2023 Testing performed by: [facility], [address] [place] [address], [place]. [address] [place], [place] [phone] Blood 06/11/2024 6:42 AM CDT 06/11/2024 11:17 AM CDT Alejandro Mcclain MD LAB BLOOD ORDERABLES Final Result Performing Organization Address [facility] de Phone Number [email or web address] [address] * (ABNORMAL) hCG, blood, quantitative (06/07/2024 7:03 AM CDT) hCG, quant 872.5(H) 0.0 - 5.0 IUnits/L Comment: Above normal(expected)range Interpretive Data Male: < 5 IU/L Non- premenopausal Female: <5 IU/L The Aida hCG Beta Quant assay procedure was used. Results from different manufacturers or methods may not be comparable. Serial testing should be performed using the same method. Interpretive Data was last revised on 2023 Testing performed by: [facility], [address] [place] [address], [place]. [address] [place], [place] [id number] Blood 06/07/2024 7:03 AM CDT 06/07/2024 7:54 AM CDT Alejandro Mcclain MD LAB BLOOD ORDERABLES Final Result Performing Organization Address [facility] Co de Phone Number [email or web address] [address] * Progesterone (06/04/2024 6:57 AM CDT) Progesterone 51.31 ng/mL Comment: Interpretive Data Males: <0.15 ng/mL Females: Follicular <0.89 ng/mL Luteal 1.8 - 24.0 ng/mL Ovulation <12.0 ng/mL 1st Trimester 11.0 - 44.0 ng/mL 2nd Trimester 25.0 - 83.0 ng/mL 3rd Trimester 59.0 - 214.0 ng/mL Postmenopausal <0.13 ng/mL Current interpretive data was last revised 2017. Testing performed by: [facility], [address] [place] [address], [address] [phone] Blood 06/04/2024 6:57 AM CDT 06/04/2024 11:24 AM CDT Alejandro Mcclain MD LAB BLOOD ORDERABLES Final Result Performing Organization Address City/[facility] Co de Phone Number [facility] Department [place] [address] * Estradiol (06/04/2024 6:57 AM CDT) Pathologist [facility] Estradiol 991.8 pg/mL Comment: Interpretive Data Males: 11 43 pg/mL Females: Premenopausal: 31 533 pg/mL Postmenopausal: < 50 pg/mL Patients treated with Fluvestrant (Faslodex) should be tested using an alternate assay such as LC-MS due to potential for cross-reactivity. Estradiol varies widely throughout the menstrual cycle. Current interpretive data was last revised 2023. Testing performed by: [facility], [address] [place] [address], [address] [phone] Blood 06/04/2024 6:57 AM CDT 06/04/2024 11:24 AM CDT Alejandro Mcclain MD LAB BLOOD ORDERABLES Final Result Performing Organization Address City/[facility] Co de Phone Number [facility] Department [place] [address] * (ABNORMAL) hCG, blood, quantitative (06/04/2024 6:57 AM CDT) Pathologist [facility] hCG, quant 353.8(H) 0.0 - 5.0 IUnits/L Comment: Above normal(expected)range Interpretive Data Male: < 5 IU/L Non- premenopausal Female: <5 IU/L The Aida hCG Beta Quant assay procedure was used. Results from different manufacturers or methods may not be comparable. Serial testing should be performed using the same method. Interpretive Data was last revised on 2023 Testing performed by: [facility], [address] [place] [phone] Blood 06/04/2024 6:57 AM CDT 06/04/2024 11:24 AM CDT Alejandro Mcclain MD LAB BLOOD ORDERABLES Final Result Performing Organization Address [facility] Co de Phone Number [facility] [email or web address] [address] * Progesterone (05/30/2024 6:53 AM CDT) Pathologist [facility] Progesterone 17.64 ng/mL Comment: Interpretive Data Males: <0.15 ng/mL Females: Follicular <0.89 ng/mL Luteal 1.8 - 24.0 ng/mL Ovulation <12.0 ng/mL 1st Trimester 11.0 - 44.0 ng/mL 2nd Trimester 25.0 - 83.0 ng/mL 3rd Trimester 59.0 - 214.0 ng/mL Postmenopausal <0.13 ng/mL Current interpretive data was last revised 2017. Testing performed by: [facility], [address] [place] [address], [address] [phone] Blood 05/30/2024 6:53 AM CDT 05/30/2024 8:56 AM CDT Alejandro Mcclain MD LAB BLOOD ORDERABLES Final Result Performing Organization Address [facility] Co de Phone Number [facility] [place] [address] * Estradiol (05/30/2024 6:53 AM CDT) Estradiol 438.8 pg/mL Comment: Interpretive Data Males: 11 43 pg/mL Females: Premenopausal: 31 533 pg/mL Postmenopausal: < 50 pg/mL Patients treated with Fluvestrant (Faslodex) should be tested using an alternate assay such as LC-MS due to potential for cross-reactivity. Estradiol varies widely throughout the menstrual cycle. Current interpretive data was last revised 2023. Testing performed by: [facility], [address] [facility] [place], [place]. [address] [phone] Blood 05/30/2024 6:53 AM CDT 05/30/2024 8:56 AM CDT Alejandro Mcclain MD LAB BLOOD ORDERABLES Final Result Performing Organization Address City/[facility]/ZIP Co de Phone Number [facility] Department [place] [address] * Progesterone (05/23/2024 1:08 PM CDT) Progesterone >60.00 ng/mL Comment: Above measuring range Interpretive Data Males: <0.15 ng/mL Females: Follicular <0.89 ng/mL Luteal 1.8 - 24.0 ng/mL Ovulation <12.0 ng/mL 1st Trimester 11.0 - 44.0 ng/mL 2nd Trimester 25.0 - 83.0 ng/mL 3rd Trimester 59.0 - 214.0 ng/mL Postmenopausal <0.13 ng/mL Current interpretive data was last revised 2017. Testing performed by: [facility], [address] [facility] [place], [place]. [address] [phone] Blood 05/23/2024 1:08 PM CDT 05/23/2024 1:14 PM CDT Alejandro Mcclain MD LAB BLOOD ORDERABLES Final Result Performing Organization Address City/[facility]/ZIP Co de Phone Number [facility] Department [place] [address] * Estradiol (05/23/2024 1:08 PM CDT) Estradiol 1,074.0 pg/mL Comment: Interpretive Data Males: 11 43 pg/mL Females: Premenopausal: 31 533 pg/mL Postmenopausal: < 50 pg/mL Patients treated with Fluvestrant (Faslodex) should be tested using an alternate assay such as LC-MS due to potential for cross-reactivity. Estradiol varies widely throughout the menstrual cycle. Current interpretive data was last revised 2023. Testing performed by: [facility], [address] [facility] [place], [place]. [address], [facility] [phone] Blood 05/23/2024 1:08 PM CDT 05/23/2024 1:14 PM CDT Alejandro Mcclain MD LAB BLOOD ORDERABLES Final Result Performing Organization Address City/State/[facility] Co de Phone Number [facility] Department [place] [address] * US Guided Embryo Transfer (05/23/2024 11:24 AM CDT) Anatomical Region Laterality Modality Entire body N/A Ultrasound 05/23/2024 12:0 0 PM CDT Impressions 05/23/2024 12:25 PM CDT Embryo transfer performed under ultrasound guidance. Narrative Procedure Note Tiffany Gonzales MD - 05/23/2024 IMPRESSION: Embryo transfer performed under ultrasound guidance. Alejandro Mcclain MD IMG OB US PROCEDURES Final Result * US Guided Oocyte Retrieval (05/18/2024 6:28 AM CDT) Anatomical Region Laterality Modality Body N/A Ultrasound 05/18/2024 6:44 AM CDT Impressions 05/18/2024 9:15 AM CDT Ultrasound guided follicle aspiration. Narrative Procedure Note Esteban Vail MD - 05/18/2024 IMPRESSION: Ultrasound guided follicle aspiration. us Alejandro Mcclain MD IMG OB US PROCEDURES Final Result * US Pelvis Limited (05/16/2024 6:50 AM CDT) Cul de Sac No free fluid visualized VIEWPOINT Left Follicle Mean 20.3 mm&millim eters VIEWPOINT Left Follicle Mean 18.9 mm&millim eters VIEWPOINT Left Follicle Mean 17.1 mm&millim eters VIEWPOINT Left Follicle Mean 17.0 mm&millim eters VIEWPOINT Left Follicle Mean 16.7 mm&millim eters VIEWPOINT Left Follicle Mean 16.6 mm&millim eters VIEWPOINT Left Follicle Mean 16.2 mm&millim eters VIEWPOINT Left Follicle Mean 16.1 mm&millim eters VIEWPOINT Left Follicle Mean 15.0 mm&millim eters VIEWPOINT Left Follicle Mean 14.3 mm&millim eters VIEWPOINT Left Follicle Mean 13.4 mm&millim eters VIEWPOINT Left Follicle Mean 13.1 mm&millim eters VIEWPOINT Left Follicle Mean 13.0 mm&millim eters VIEWPOINT Left Follicle Mean 12.9 mm&millim eters VIEWPOINT Left Follicle Mean 12.2 mm&millim eters VIEWPOINT Right Follicle Mean 17.3 mm&millim eters VIEWPOINT Right Follicle Mean 16.6 mm&millim eters VIEWPOINT Right Follicle Mean 16.6 mm&millim eters VIEWPOINT Right Follicle Mean 16.0 mm&millim eters VIEWPOINT Right Follicle Mean 15.1 mm&millim eters VIEWPOINT Right Follicle Mean 14.3 mm&millim eters VIEWPOINT Right Follicle Mean 13.9 mm&millim eters VIEWPOINT Right Follicle Mean 12.9 mm&millim eters VIEWPOINT Right Follicle Mean 12.1 mm&millim eters VIEWPOINT Endometrial Thickness 9.8 mm&millim eters VIEWPOINT Anatomical Region Laterality Modality Pelvis N/A Ultrasound 05/16/2024 6:51 AM CDT Impressions 05/16/2024 10:28 AM CDT Bilateral dominant follicles seen. Trilaminar endometrium. Narrative Procedure Note Dianna Means MD - 05/16/2024 IMPRESSION: Bilateral dominant follicles seen. Trilaminar endometrium. Alejandro Mcclain MD IMG US PROCEDURES Final Re sult * Progesterone (05/16/2024 6:45 AM CDT) Progesterone 1.11 ng/mL Comment: Interpretive Data Males: <0.15 ng/mL Females: Follicular <0.89 ng/mL Luteal 1.8 - 24.0 ng/mL Ovulation <12.0 ng/mL 1st Trimester 11.0 - 44.0 ng/mL 2nd Trimester 25.0 - 83.0 ng/mL 3rd Trimester 59.0 - 214.0 ng/mL Postmenopausal <0.13 ng/mL Current interpretive data was last revised 2017. Testing performed by: [facility], [address] [place] [address], [facility]. [address] [place] [phone] Blood 05/16/2024 6:45 AM CDT 05/16/2024 8:35 AM CDT Alejandro Mcclain MD LAB BLOOD ORDERABLES Final Result [facility] [place] [address] * Estradiol (05/16/2024 6:45 AM CDT) Estradiol 2,011.0 pg/mL Comment: Interpretive Data Males: 11 43 pg/mL Females: Premenopausal: 31 533 pg/mL Postmenopausal: < 50 pg/mL Patients treated with Fluvestrant (Faslodex) should be tested using an alternate assay such as LC-MS due to potential for cross-reactivity. Estradiol varies widely throughout the menstrual cycle. Current interpretive data was last revised 2023. Testing performed by: [facility], [address] [place] [address], [place]. [address] [place] [phone] Blood 05/16/2024 6:45 AM CDT 05/16/2024 8:35 AM CDT Alejandro Mcclain MD LAB BLOOD ORDERABLES Final Result [facility] Department [place] [address] * US Pelvis Limited (05/14/2024 7:15 AM CDT) Cul de Sac No free fluid visualized VIEWPOINT Left Follicle Mean 14.9 mm&millim eters VIEWPOINT Left Follicle Mean 14.4 mm&millim eters VIEWPOINT Left Follicle Mean 13.0 mm&millim eters VIEWPOINT Left Follicle Mean 12.9 mm&millim eters VIEWPOINT Left Follicle Mean 11.7 mm&millim eters VIEWPOINT Left Follicle Mean 11.5 mm&millim eters VIEWPOINT Left Follicle Mean 11.3 mm&millim eters VIEWPOINT Left Follicle Mean 10.7 mm&millim eters VIEWPOINT Right Follicle Mean 12.3 mm&millim eters VIEWPOINT Right Follicle Mean 12.1 mm&millim eters VIEWPOINT Right Follicle Mean 12.0 mm&millim eters VIEWPOINT Right Follicle Mean 11.8 mm&millim eters VIEWPOINT Right Follicle Mean 10.8 mm&millim eters VIEWPOINT Endometrial Thickness 9.1 mm&millim eters VIEWPOINT Anatomical Region Laterality Modality Pelvis N/A Ultrasound 05/14/2024 7:19 AM CDT Impressions 05/14/2024 8:30 AM CDT Trilaminar appearance of endometrium, 9.1 mm. Interval follicular growth bilaterally, leading follicles 14-15 mm. Narrative Procedure Note Tiffany Gonzales MD - 05/14/2024 IMPRESSION: Trilaminar appearance of endometrium, 9.1 mm. Interval follicular growthbilaterally, leading follicles 14-15 mm. Alejandro Mcclain MD IMG US PROCEDURES Final Re sult * Progesterone (05/14/2024 7:10 AM CDT) Progesterone 0.52 ng/mL Comment: Interpretive Data Males: <0.15 ng/mL Females: Follicular <0.89 ng/mL Luteal 1.8 - 24.0 ng/mL Ovulation <12.0 ng/mL 1st Trimester 11.0 - 44.0 ng/mL 2nd Trimester 25.0 - 83.0 ng/mL 3rd Trimester 59.0 - 214.0 ng/mL Postmenopausal <0.13 ng/mL Current interpretive data was last revised 2017. Testing performed by: [facility], [address] [facility], [place]. [address] [place] [phone] Blood 05/14/2024 7:10 AM CDT 05/14/2024 8:50 AM CDT Alejandro Mcclain MD LAB BLOOD ORDERABLES Final Result Performing Organization Address [facility] de Phone Number [facility] [email or web address] [address] * Estradiol (05/14/2024 7:10 AM CDT) Estradiol 952.8 pg/mL Comment: Interpretive Data Males: 11 43 pg/mL Females: Premenopausal: 31 533 pg/mL Postmenopausal: < 50 pg/mL Patients treated with Fluvestrant (Faslodex) should be tested using an alternate assay such as LC-MS due to potential for cross-reactivity. Estradiol varies widely throughout the menstrual cycle. Current interpretive data was last revised 2023. Testing performed by: [facility], [address] [facility], [place]. [address] [place] [phone] Blood 05/14/2024 7:10 AM CDT 05/14/2024 8:50 AM CDT Alejandro Mcclain MD LAB BLOOD ORDERABLES Final Result Performing Organization Address [facility] Co de Phone Number [facility] [email or web address] [address] * US Pelvis Limited (05/12/2024 7:37 AM CDT) Cul de Sac No free fluid visualized VIEWPOINT Left Follicle Mean 12.1 mm&millim eters VIEWPOINT Left Follicle Mean 11.9 mm&millim eters VIEWPOINT Left Follicle Mean 11.8 mm&millim eters VIEWPOINT Left Follicle Mean 9.9 mm&millim eters VIEWPOINT Right Follicle Mean 10.2 mm&millim eters VIEWPOINT Right Follicle Mean 10.1 mm&millim eters VIEWPOINT Right Follicle Mean 10.0 mm&millim eters VIEWPOINT Right Follicle Mean 9.9 mm&millim eters VIEWPOINT Endometrial Thickness 5.8 mm&millim eters VIEWPOINT Anatomical Region Laterality Modality Pelvis N/A Ultrasound 05/12/2024 7:37 AM CDT Impressions 05/12/2024 8:56 AM CDT Emerging follicles bilaterally. Trilaminar appearance of endometrium. Paraovarian cyst stable from prior imaging. Narrative Procedure Note Mara Robin MD - 05/12/2024 IMPRESSION: Emerging follicles bilaterally. Trilaminar appearance of endometrium.Paraovarian cyst stable from prior imaging. Alejandro Mcclain MD IMG US PROCEDURES Final Re sult * Progesterone (05/12/2024 7:34 AM CDT) Progesterone 0.37 ng/mL Comment: Interpretive Data Males: <0.15 ng/mL Females: Follicular <0.89 ng/mL Luteal 1.8 - 24.0 ng/mL Ovulation <12.0 ng/mL 1st Trimester 11.0 - 44.0 ng/mL 2nd Trimester 25.0 - 83.0 ng/mL 3rd Trimester 59.0 - 214.0 ng/mL Postmenopausal <0.13 ng/mL Current interpretive data was last revised 2017. Testing performed by: [facility], [address] [place] [address], [place]. [address], [facility] [phone] Blood 05/12/2024 7:34 AM CDT 05/12/2024 8:00 AM CDT Alejandro Mcclain MD LAB BLOOD ORDERABLES Final Result Performing Organization Address [facility] Phone Number [facility] [place] [address] * Estradiol (05/12/2024 7:34 AM CDT) Estradiol 427.3 pg/mL Comment: Interpretive Data Males: 11 43 pg/mL Females: Premenopausal: 31 533 pg/mL Postmenopausal: < 50 pg/mL Patients treated with Fluvestrant (Faslodex) should be tested using an alternate assay such as LC-MS due to potential for cross-reactivity. Estradiol varies widely throughout the menstrual cycle. Current interpretive data was last revised 2023. Testing performed by: [facility], [address] [place] [address] [phone] Blood 05/12/2024 7:34 AM CDT 05/12/2024 8:00 AM CDT Alejandro Mcclain MD LAB BLOOD ORDERABLES Final Result Performing Organization Address [facility] Phone Number [facility] [place] [address] * US Pelvis Limited (05/10/2024 7:58 AM CDT) Cul de Sac No free fluid visualized VIEWPOINT Left Antral Follicle Count Antral Follicle Count < 10 mm = 18 VIEWPOINT Right Antral Follicle Count Antral Follicle Count < 10 mm = 18 VIEWPOINT Endometrial Thickness 3.8 mm&millim eters VIEWPOINT Anatomical Region Laterality Modality Pelvis N/A Ultrasound 05/10/2024 7:59 AM CDT Impressions 05/10/2024 8:26 AM CDT 3.8 mm lining; AFC=36 Narrative Procedure Note Alejandro Mcclain MD - 05/10/2024 IMPRESSION: 3.8 mm lining; AFC=36 Alejandro Mcclain MD IMG US PROCEDURES Final Re sult * Progesterone (05/10/2024 7:52 AM CDT) Progesterone 0.18 ng/mL Comment: Interpretive Data Males: <0.15 ng/mL Females: Follicular <0.89 ng/mL Luteal 1.8 - 24.0 ng/mL Ovulation <12.0 ng/mL 1st Trimester 11.0 - 44.0 ng/mL 2nd Trimester 25.0 - 83.0 ng/mL 3rd Trimester 59.0 - 214.0 ng/mL Postmenopausal <0.13 ng/mL Current interpretive data was last revised 2017. Testing performed by: [facility], [address] [place] [address], [place]. [address] [place] [phone] Blood 05/10/2024 7:52 AM CDT 05/10/2024 9:24 AM CDT Alejandro Mcclain MD LAB BLOOD ORDERABLES Final Result [facility] Department [place] [address] * Estradiol (05/10/2024 7:52 AM CDT) Estradiol 116.6 pg/mL Comment: Interpretive Data Males: 11 43 pg/mL Females: Premenopausal: 31 533 pg/mL Postmenopausal: < 50 pg/mL Patients treated with Fluvestrant (Faslodex) should be tested using an alternate assay such as LC-MS due to potential for cross-reactivity. Estradiol varies widely throughout the menstrual cycle. Current interpretive data was last revised 2023. Testing performed by: [facility], [address] [facility], [place]. [address] [place] [phone] Blood 05/10/2024 7:52 AM CDT 05/10/2024 9:24 AM CDT Alejandro Mcclain MD LAB BLOOD ORDERABLES Final Result Performing Organization Address City/[facility] Co de Phone Number [facility] Department [place] [address] * Progesterone (05/08/2024 7:01 AM CDT) Progesterone 0.39 ng/mL Comment: Interpretive Data Males: <0.15 ng/mL Females: Follicular <0.89 ng/mL Luteal 1.8 - 24.0 ng/mL Ovulation <12.0 ng/mL 1st Trimester 11.0 - 44.0 ng/mL 2nd Trimester 25.0 - 83.0 ng/mL 3rd Trimester 59.0 - 214.0 ng/mL Postmenopausal <0.13 ng/mL Current interpretive data was last revised 2017. Testing performed by: [facility], [facility] [place] [employer], [place]. [address] [place] [phone] Blood 05/08/2024 7:0 1 AM CDT 05/08/2024 9:23 AM CDT Alejandro Mcclain MD LAB BLOOD ORDERABLES Final Result Performing Organization Address [facility] de Phone Number [facility] Department [place] [address] * Estradiol (05/08/2024 7:01 AM CDT) Estradiol 32.4 pg/mL Comment: Interpretive Data Males: 11 43 pg/mL Females: Premenopausal: 31 533 pg/mL Postmenopausal: < 50 pg/mL Patients treated with Fluvestrant (Faslodex) should be tested using an alternate assay such as LC-MS due to potential for cross-reactivity. Estradiol varies widely throughout the menstrual cycle. Current interpretive data was last revised 2023. Testing performed by: [facility], [address] [place] [address], [place]. [address] [place] [phone] Blood 05/08/2024 7:01 AM CDT 05/08/2024 9:23 AM CDT Alejandro Mcclain MD LAB BLOOD ORDERABLES Final Result [facility] Department [place] [address] * US Pelvis Limited (05/03/2024 7:05 AM LEACH TANK TENDER) Cul de Sac No free fluid visualized VIEWPOINT Left Antral Follicle Count Antral Follicle Count < 10 mm = 17 VIEWPOINT Right Antral Follicle Count Antral Follicle Count < 10 mm = 20 VIEWPOINT Endometrial Thickness 4.4 mm&millim eters VIEWPOINT Anatomical Region Laterality Modality Pelvis N/A Ultrasound 05/03/2024 7:13 AM LEACH TANK TENDER Impressions 05/03/2024 8:44 AM LEACH TANK TENDER 4.4 mm lining; AFC=37 Narrative Procedure Note Alejandro Mcclain MD - 05/03/2024 IMPRESSION: 4.4 mm lining; AFC=37 Alejandro Mcclain MD IMG US PROCEDURES Final Re sult * Progesterone (05/03/2024 6:56 AM LEACH TANK TENDER) Progesterone 0.23 ng/mL Comment: Interpretive Data Males: <0.15 ng/mL Females: Follicular <0.89 ng/mL Luteal 1.8 - 24.0 ng/mL Ovulation <12.0 ng/mL 1st Trimester 11.0 - 44.0 ng/mL 2nd Trimester 25.0 - 83.0 ng/mL 3rd Trimester 59.0 - 214.0 ng/mL Postmenopausal <0.13 ng/mL Current interpretive data was last revised 2017. Testing performed by: [facility], [address] [place] [address], [facility]. [address] [phone] Blood 05/03/2024 6:56 AM LEACH TANK TENDER 05/03/2024 8:29 AM LEACH TANK TENDER Alejandro Mcclain MD LAB BLOOD ORDERABLES Final Result Performing Organization Address City/[facility] Co de Phone Number [facility] [email or web address] [address] * Estradiol (05/03/2024 6:56 AM LEACH TANK TENDER) Pathologist [facility] Estradiol <5.0 pg/mL Comment: Below measuring range Interpretive Data Males: 11 43 pg/mL Females: Premenopausal: 31 533 pg/mL Postmenopausal: < 50 pg/mL Patients treated with Fluvestrant (Faslodex) should be tested using an alternate assay such as LC-MS due to potential for cross-reactivity. Estradiol varies widely throughout the menstrual cycle. Current interpretive data was last revised 2023. Testing performed by: [facility], [address] [place] [address], [place], [facility] [phone] Blood 05/03/2024 6:56 AM LEACH TANK TENDER 05/03/2024 8:29 AM LEACH TANK TENDER Alejandro Mcclain MD LAB BLOOD ORDERABLES Final Result Performing Organization Address [facility] [place] [address] * Hepatitis C antibody Blood (03/01/2024 1:30 PM LEACH TANK TENDER) Pathologist [facility] Hep C Ab Nonreactive Nonreactive Comment:Antibodies to HCV no t detected. Does NOT exclude the possibility of recent exposure to HCV. Current interpretive data was last revised on 21 Blood 03/01/2024 1:30 PM LEACH TANK TENDER 03/01/2024 6:00 PM LEACH TANK TENDER Alejandro Mcclain MD LAB MICROBIOLOGY - GENERAL ORDERABLES [place] [address] from Last 3 Months or Most Recently Relevant to Health Maintenance Insurance [employer] [place] [id number] [employer] [facility] Address: [address] [employer] Advance Directives For more information, please contact: [phone] * Full Code (Latest Code Status on File) Date Activated Date Inactivated Comments 05/18/2024 6:33 AM 05/19/2024 5:00 AM * Full Code Date Activated Date Inactivated Comments 03/08/2018 7:36 AM 03/08/2018 12:14 PM * Full Code Date Activated Date Inactivated Comments 10/03/2017 11:55 PM 10/04/2017 5:29 AM Care Teams Professor Of Graphic Design Relationship Specialty Start Date End Date Rocael Burr MD [address] [place] [address] [place] [address] PCP - General Family Medicine 02/16/18
--- OUTSIDE RECORDS SUMMARY | 2024-07-30 12:25 | XMS_ITS | Clinical Summary ---
Author Organization [facility] Address [address] [place] [address] Phone Care Team Providers Care Disk Sander Name Role Phone Rocael Burr MD Primary Care Provider Immunizations Immunization Administration Dates Next Due (PFIZER)(12 YR UP) COVID-19 VACCINE - EMERGENCY USE AUTHORIZATION, MRNA, [id number](PF) 30 MCG/0.3 ML IM SUSP 03/12/2020,02/20/2020 Influenza Seasonal Unspecified Formulation IM ,12/18/2019 Social History Tobacco Use Types Packs/Day Years Used Date Smoking Tobacco: Never Assessed Comments Unknown Sex and Gender Information Value Date Recorded Sex Assigned at Not on file Legal Sex Female 3:33 PM CDT Gender Identity Not on file Sexual Orientation Not on file Plan of Treatment Health Maintenance Due Date Last Done Comments DTAP/TDAP/TD VACCINES (1 - Tdap) 05/12/2015 HEPATITIS B VACCINES (1 of 3 - 19+ 3-dose series) 05/12/2015 CERVICAL CANCER SCREENING 2017 HPV/Cotest (21-29) 2017 PAP SMEAR 2017 INFLUENZA VACCINE (#1) 2023 , 12/18/2019, 12/02/2018 COVID-19 Vaccine ( - 2023- season) 2023 03/12/2020, 02/20/2020 HPV VACCINES Aged Out No longer eligi ble based on patient's age to complete this topic Care Teams Disk Sander Relationship Specialty Start Date End Date Rocael Burr MD [address] [place] [phone] PCP - General Family Practice 07/30/19
--- OUTSIDE RECORDS SUMMARY | 2024-07-30 12:25 | XMS_ITS | Referral Summary ---
Author Organization [facility] Address [address] [place] [address] Care Team Providers Care Armhole Presser Name Role Phone Rocael Burr MD Primary Care Provider [phone] Encounters Date Type Department Care Team Description 06/22/2024 1:20 PM CDT Office Visit [facility] Reproductive Endocrinology [address] [place] [phone] Rebecca Quintana, [place] Supervision of resulting from assisted reproductive technology, unspecified trimester (Primary Dx) 06/22/2024 12:45 PM CDT Ancillary Procedure [facility] Obstetrics and Gynecology [address] [place] [address] 3rd Floor [address] [place] [phone] Supervision of resulting from assisted reproductive technology, unspecified trimester 06/11/2024 Results Follow-Up [facility] Reproductive Endocrinology [address] [place] [phone] Alejandro Mcclain MD Estradiol, Progesterone, hCG, blood, quantitative 06/11/2024 6:40 AM CDT Clinical Support [facility] Reproductive Endocrinology Lab [address] [place] [phone] Supervision of resulting from assisted reproductive technology, unspecified trimester (Primary Dx) 06/11/2024 9:14 AM CDT - 06/11/2024 11:59 PM CDT Hospital Encounter [address] [address] Supervision of resulting from assisted reproductive technology, unspecified trimester Discharge Disposition: Discharge to home or self care 06/07/2024 Results Follow-Up [facility] Reproductive Endocrinology [address] [place] [phone] Alejandro Mcclain MD hCG, blood, quantitative 06/07/2024 7:10 AM CDT Clinical Support [facility] Reproductive Endocrinology Lab [address] [place] [phone] Encounter for test, result unknown (Primary Dx) 06/07/2024 1:44 PM CDT - 06/07/2024 11:59 PM CDT Hospital Encounter [address] [address] Encounter for test, result unknown Discharge Disposition: Discharge to home or self care 06/04/2024 Results Follow-Up [facility] Reproductive Endocrinology [address] [place] [phone] Alejandro Mcclain MD hCG, blood, quantitative, Estradiol, Progesterone 06/04/2024 7:00 AM CDT Clinical Support [facility] Reproductive Endocrinology Lab [address] [place] [phone] In vitro fertilization (Primary Dx); Encounter for test, result unknown 06/04/2024 6:51 AM CDT - 06/04/2024 11:59 PM CDT Hospital Encounter [address] [address] Encounter for test, result unknown; In vitro fertilization Discharge Disposition: Discharge to home or self care 05/30/2024 7:00 AM CDT Clinical Support [facility] Reproductive Endocrinology Lab [address] [place] [phone] In vitro fertilization (Primary Dx) 05/30/2024 7:24 AM CDT - 05/30/2024 11:59 PM CDT Hospital Encounter [address] [address] In vitro fertilization Discharge Disposition: Discharge to home or self care 05/23/2024 6:22 AM CDT - 05/23/2024 11:59 PM CDT Hospital Encounter [address] [address] In vitro fertilization Discharge Disposition: Discharge to home or self care 05/23/2024 11:30 AM CDT Clinical Support [facility] Reproductive Endocrinology Lab [address] [place] [phone] In vitro fertilization (Primary Dx) 05/23/2024 11:50 AM CDT Office Visit [address] [place] [address] Encounter for assisted reproductive fertility procedure cycle 05/23/2024 11:24 AM CDT - 05/23/2024 11:59 PM CDT Hospital Encounter [address] [address] Encounter for assisted reproductive fertility procedure cycle (Primary Dx) Discharge Disposition: Discharge to home or self care 05/22/2024 Telephone [facility] Reproductive Endocrinology [address] [place] [address] [place] [phone] Alejandro Mcclain MD 05/22/[address] [address] Elizabeth Bergeron RN Scheduling Testing/Treatment (Embryo Transfer Instructions) 05/19/[address] [address] Gonzalez Salgado RN Treatment Plan Update (Postoperative check up and fertilization update) 05/18/2024 7:40 AM CDT Anesthesia Event [address] [address] Chrystal Lowery MD PhD 05/18/2024 7:30 AM CDT Ancillary Procedure [address] [place] [address] Encounter for assisted reproductive fertility procedure cycle 05/18/2024 6:28 AM CDT - 05/18/2024 11:59 PM CDT Hospital Encounter [address] [address] Encounter for assisted reproductive fertility procedure cycle (Primary Dx) Discharge Disposition: Discharge to home or self care 05/16/[address] [address] Janene Asencio RN Scheduling Testing/Treatment (Trigger and egg retrieval instructions) 05/16/2024 Orders Only [address] [address] Janene Asencio RN Encounter for assisted reproductive fertility procedure cycle (Primary Dx) 05/16/2024 7:00 AM CDT Clinical Support [facility] Reproductive Endocrinology Lab [address] [place] [phone] In vitro fertilization (Primary Dx) 05/16/2024 6:45 AM CDT Ancillary Procedure [facility] Obstetrics and Gynecology [address] [place] [address] 3rd Floor [address] [place] [phone] In vitro fertilization 05/16/2024 8:06 AM CDT - 05/16/2024 11:59 PM CDT Hospital Encounter [address] [address] In vitro fertilization Discharge Disposition: Discharge to home or self care 05/14/2024 Telephone [facility] Reproductive Endocrinology [address] [place] [phone] Tiffany Gonzales MD 05/14/2024 7:30 AM CDT Clinical Support [facility] Reproductive Endocrinology Lab [address] [place] [phone] In vitro fertilization (Primary Dx) 05/14/2024 7:15 AM CDT Ancillary Procedure [facility] Obstetrics and Gynecology [address] [place] [address] 3rd Floor [address] [place] [phone] In vitro fertilization 05/14/2024 1:16 PM CDT - 05/14/2024 11:59 PM CDT Hospital Encounter [address] [address] In vitro fertilization Discharge Disposition: Discharge to home or self care 05/12/2024 Telephone [facility] Reproductive Endocrinology [address] [place] [address] [place] [phone] Mara Robin MD IVF Instructions 05/12/2024 8:00 AM CDT Clinical Support [facility] Reproductive Endocrinology Lab [address] [place] [phone] In vitro fertilization (Primary Dx) 05/12/2024 7:45 AM CDT Ancillary Procedure [facility] Obstetrics and Gynecology [address] [place] [address] 3rd Floor [address] [place] [phone] In vitro fertilization 05/12/2024 10:42 AM CDT - 05/12/2024 11:59 PM CDT Hospital Encounter [address] [address] In vitro fertilization Discharge Disposition: Discharge to home or self care 05/10/2024 Telephone [facility] Reproductive Endocrinology [address] [place] [address] [place] [phone] Alejandro Mcclain MD 05/10/2024 8:30 AM CDT Clinical Support [facility] Reproductive Endocrinology Lab [address] [place] [phone] In vitro fertilization (Primary Dx) 05/10/2024 8:00 AM CDT Ancillary Procedure [facility] Obstetrics and Gynecology [address] [place] [address] 3rd Floor [address] [place] [phone] In vitro fertilization 05/10/2024 11:18 AM CDT - 05/10/2024 11:59 PM CDT Hospital Encounter [address] [address] In vitro fertilization Discharge Disposition: Discharge to home or self care 05/08/2024 Telephone [facility] Reproductive Endocrinology [address] [place] [address] [place] [phone] Mara Robin MD 05/08/2024 7:10 AM CDT Clinical Support [facility] Reproductive Endocrinology Lab [address] [place] [phone] In vitro fertilization (Primary Dx) 05/08/2024 2:12 PM CDT - 05/08/2024 11:59 PM CDT Hospital Encounter [facility] [address] [place] [address], [address] [place] [phone] In vitro fertilization Discharge Disposition: Discharge to home or self care 05/03/2024 Telephone [facility] Reproductive Endocrinology [address] [place] [address] [place] [phone] Desirae Desir MD 05/03/2024 7:10 AM GOLF CADDY Clinical Support [facility] Reproductive Endocrinology Lab [address] [place] [address] [place] [phone] In vitro fertilization (Primary Dx) 05/03/2024 7:00 AM GOLF CADDY Ancillary Procedure [facility] Obstetrics and Gynecology [address] [place] [address] Ave 3rd Floor [address] [place] [phone] In vitro fertilization 05/03/2024 9:52 AM GOLF CADDY - 05/03/2024 11:59 PM GOLF CADDY Hospital Encounter [facility] [address] [place] [address], [address] [place] [address] In vitro fertilization Discharge Disposition: Discharge to home or self care from Last 3 Months Allergies Active Allergy Reactions Criticality Noted Date Comments Cephalosporins Rash Medium 05/09/2012 [place] Rash Medium 05/09/2012 Nickel Rash Medium 05/09/2012 [...] (02/12/2021): Added automatically from request for surgery [id number] Epigastric pain 02/12/2021 Overview (02/12/2021): Added automatically from request for surgery [id number] Colitis 02/12/2021 Overview (02/12/2021): Added automatically from request for surgery [id number] Multiple food allergies 03/05/2019 Eosinophilic esophagitis 08/22/2018 Environmental allergies 02/16/2018 GERD (gastroesophageal reflux disease) 8 Food impaction of esophagus 10/03/2017 Comments Yes Immunizations Immunization Administration Dates Next Due Influenza, Trivalent, Cell C ulture-based MDCK, Preservative Free, Antibiotic Free, Intramuscular 12/07/2023 Social History Tobacco Use Types Packs/Day Years [...] Sex Assigned at Female 05/02/2018 8:22 AM GOLF CADDY Legal Sex Female 2:25 AM GOLF CADDY Gender Identity Female 05/02/2018 8:22 AM GOLF CADDY Sexual Orientation Straight 05/02/2018 8 :22 AM GOLF CADDY Last Filed Vital Signs Vital Sign Reading [...] 06/22/2024 1:15 PM CDT Plan of Treatment Not on file Procedures Procedure Name Priority Date/Time Associated Diagnosis [...] for assisted reproductive fertility procedure cycle US PELVIS LIMITED Schedule Routine, Read Routine (OP Routine) 05/16/2024 6:50 AM CDT In vitro fertilization PROGESTERONE Routine 05/16/2024 6:45 AM CDT In vitro fertilization ESTRADIOL Routine 05/16/2024 6:45 AM CDT In vitro fertilization US PELVIS LIMITED Schedule Routine, Read Routine (OP Routine) 05/14/2024 7:15 AM CDT In vitro fertilization ESTRADIOL Routine 05/14/2024 7:10 AM CDT In vitro fertilization PROGESTERONE Routine 05/14/2024 7:10 AM CDT In vitro fertilization US PELVIS LIMITED Schedule Routine, Read Routine (OP Routine) 05/12/2024 7:37 AM CDT In vitro fertilization PROGESTERONE Routine 05/12/2024 7:34 AM CDT In vitro fertilization ESTRADIOL Routine 05/12/2024 7:34 AM CDT In vitro fertilization US PELVIS LIMITED Schedule Routine, Read Routine (OP Routine) 05/10/2024 7:58 AM CDT In vitro fertilization PROGESTERONE Routine 05/10/2024 7:52 AM CDT In vitro fertilization ESTRADIOL Routine 05/10/2024 7:52 AM CDT In vitro fertilization PROGESTERONE Routine 05/08/2024 7:01 AM CDT In vitro fertilization ESTRADIOL Routine 05/08/2024 7:01 AM CDT In vitro fertilization US PELVIS LIMITED Schedule Routine, Read Routine (OP Routine) 05/03/2024 7:05 AM GOLF CADDY In vitro fertilization PROGESTERONE Routine 05/03/2024 6:56 AM GOLF CADDY In vitro fertilization ESTRADIOL Routine 05/03/2024 6:56 AM GOLF CADDY In vitro fertilization HEPATITIS C ANTIBODY Routine 03/01/2024 1:30 PM GOLF CADDY Encounter for screening for infections with predominantly [...] 0.3 x 1.0 cm Alejandro Mcclain MD IMG OB US PROCEDURES Final Result * Progesterone (06/11/2024 6:42 AM CDT) Progesterone 58.75 ng/mL Comment: Interpretive Data Males: <0.15 ng/mL Females: Follicular <0.89 ng/mL Luteal 1.8 - 24.0 ng/mL Ovulation <12.0 ng/mL 1st Trimester 11.0 - 44.0 ng/mL 2nd Trimester 25.0 - 83.0 ng/mL 3rd Trimester 59.0 - 214.0 ng/mL Postmenopausal <0.13 ng/mL Current interpretive data was last revised 2017. Testing performed by: [facility], [address] [facility] [place] [address] [place] [phone] Blood 06/11/2024 6:42 AM CDT 06/11/2024 11:17 AM CDT Alejandro Mcclain MD LAB BLOOD ORDERABLES Final Result Performing Organization Address City/[facility] Co de Phone Number [facility] [place] [address] * Estradiol (06/11/2024 6:42 AM CDT) Estradiol 1,325.0 pg/mL Comment: Interpretive Data Males: 11 43 pg/mL Females: Premenopausal: 31 533 pg/mL Postmenopausal: < 50 pg/mL Patients treated with Fluvestrant (Faslodex) should be tested using an alternate assay such as LC-MS due to potential for cross-reactivity. Estradiol varies widely throughout the menstrual cycle. Current interpretive data was last revised 2023. Testing performed by: [facility], [address] [facility] [place]. [address] [place] [phone] Blood 06/11/2024 6:42 AM CDT 06/11/2024 11:17 AM CDT Alejandro Mcclain MD LAB BLOOD ORDERABLES Final Result Performing Organization Address City/[facility] Co de Phone Number [facility] Department [place] [address] * (ABNORMAL) hCG, blood, quantitative (06/11/2024 6:42 AM CDT) hCG, quant 2,969.0(H ) 0.0 - 5.0 IUnits/L Comment: Above normal(expected)range Interpretive Data Male: < 5 IU/L Non- premenopausal Female: <5 IU/L The Aida hCG Beta Quant assay procedure was used. Results from different manufacturers or methods may not be comparable. Serial testing should be performed using the same method. Interpretive Data was last revised on 2023 Testing performed by: [facility], [address] [place] [address], [place]. [address] [place] [phone] Blood 06/11/2024 6:42 AM CDT 06/11/2024 11:17 AM CDT Alejandro Mcclain MD LAB BLOOD ORDERABLES Final Result Performing Organization Address [facility]/State/[facility] Co de Phone Number [facility] Department [place] [address] * (ABNORMAL) hCG, blood, quantitative (06/07/2024 7:03 [...] last revised on 2023 Testing performed by: [facility], [address] [place] [address], [place]. [address] [place] [phone] Blood 06/07/2024 7:03 AM CDT 06/07/2024 7:54 AM CDT Alejandro Mcclain MD LAB BLOOD ORDERABLES Final Result Performing Organization Address City/[facility]/ZIP Co de Phone Number [facility] Department [place] [address] * Progesterone (06/04/2024 6:57 AM CDT) Progesterone 51.31 ng/mL Comment: Interpretive Data Males: <0.15 ng/mL Females: Follicular <0.89 ng/mL Luteal 1.8 - 24.0 ng/mL Ovulation <12.0 ng/mL 1st Trimester 11.0 - 44.0 ng/mL 2nd Trimester 25.0 - 83.0 ng/mL 3rd Trimester 59.0 - 214.0 ng/mL Postmenopausal <0.13 ng/mL Current interpretive data was last revised 2017. Testing performed by: [facility], [address] [place] [address], [facility]. [address] [place] [phone] Blood 06/04/2024 6:57 AM CDT 06/04/2024 11:24 AM CDT Alejandro Mcclain MD LAB BLOOD ORDERABLES Final Result Performing Organization Address [facility] Co de Phone Number [facility] Department [place] [address] * Estradiol (06/04/2024 6:57 AM CDT) Estradiol 991.8 pg/mL Comment: Interpretive Data Males: 11 43 pg/mL Females: Premenopausal: 31 533 pg/mL Postmenopausal: < 50 pg/mL Patients treated with Fluvestrant (Faslodex) should be tested using an alternate assay such as LC-MS due to potential for cross-reactivity. Estradiol varies widely throughout the menstrual cycle. Current interpretive data was last revised 2023. Testing performed by: [facility], [address] [place] [address], [place]. [address] [place] [phone] Blood 06/04/2024 6:57 AM CDT 06/04/2024 11:24 AM CDT Alejandro Mcclain MD LAB BLOOD ORDERABLES Final Result Performing Organization Address [facility] Co de Phone Number [facility] Department [place] [address] * (ABNORMAL) hCG, blood, quantitative (06/04/2024 6:57 AM CDT) hCG, quant 353.8(H) 0.0 - 5.0 IUnits/L Comment: Above normal(expected)range Interpretive Data Male: < 5 IU/L Non- premenopausal Female: <5 IU/L The Aida hCG Beta Quant assay procedure was used. Results from different manufacturers or methods may not be comparable. Serial testing should be performed using the same method. Interpretive Data was last revised on 2023 Testing performed by: [facility], [address] [place] [address], [facility]. [address] [phone] Blood 06/04/2024 6:57 AM CDT 06/04/2024 11:24 AM CDT Alejandro Mcclain MD LAB BLOOD ORDERABLES Final Result Performing Organization Address [facility] de Phone Number [facility] Department [place] [address] * Progesterone (05/30/2024 6:53 AM CDT) Progesterone 17.64 ng/mL Comment: Interpretive Data Males: <0.15 ng/mL Females: Follicular <0.89 ng/mL Luteal 1.8 - 24.0 ng/mL Ovulation <12.0 ng/mL 1st Trimester 11.0 - 44.0 ng/mL 2nd Trimester 25.0 - 83.0 ng/mL 3rd Trimester 59.0 - 214.0 ng/mL Postmenopausal <0.13 ng/mL Current interpretive data was last revised 2017. Testing performed by: [facility], [address] [place] [phone] Blood 05/30/2024 6:53 AM CDT 05/30/2024 8:56 AM CDT Alejandro Mcclain MD LAB BLOOD ORDERABLES Final Result Performing Organization Address [facility] de Phone Number [facility] [place] [address] * Estradiol (05/30/2024 6:53 AM CDT) Estradiol 438.8 pg/mL Comment: Interpretive Data Males: 11 43 pg/mL Females: Premenopausal: 31 533 pg/mL Postmenopausal: < 50 pg/mL Patients treated with Fluvestrant (Faslodex) should be tested using an alternate assay such as LC-MS due to potential for cross-reactivity. Estradiol varies widely throughout the menstrual cycle. Current interpretive data was last revised 2023. Testing performed by: [facility], [address] [place] [phone] Blood 05/30/2024 6:53 AM CDT 05/30/2024 8:56 AM CDT Alejandro Mcclain MD LAB BLOOD ORDERABLES Final Result Performing Organization Address [facility] de Phone Number [facility] [place] [address] * Progesterone (05/23/2024 1:08 PM CDT) Progesterone >60.00 ng/mL Comment: Above measuring range Interpretive Data Males: <0.15 ng/mL Females: Follicular <0.89 ng/mL Luteal 1.8 - 24.0 ng/mL Ovulation <12.0 ng/mL 1st Trimester 11.0 - 44.0 ng/mL 2nd Trimester 25.0 - 83.0 ng/mL 3rd Trimester 59.0 - 214.0 ng/mL Postmenopausal <0.13 ng/mL Current interpretive data was last revised 2017. Testing performed by: [facility], [address] [facility] [place] [place]. [address] [place] [phone] Blood 05/23/2024 1:08 PM CDT 05/23/2024 1:14 PM CDT Alejandro Mcclain MD LAB BLOOD ORDERABLES Final Result Performing Organization Address [facility] de Phone Number [facility] Department [place] [address] * Estradiol (05/23/2024 1:08 PM CDT) [facility] Estradiol 1,074.0 pg/mL Comment: Interpretive Data Males: 11 43 pg/mL Females: Premenopausal: 31 533 pg/mL Postmenopausal: < 50 pg/mL Patients treated with Fluvestrant (Faslodex) should be tested using an alternate assay such as LC-MS due to potential for cross-reactivity. Estradiol varies widely throughout the menstrual cycle. Current interpretive data was last revised 2023. Testing performed by: [facility], [address] [facility] [place] [place]. [address] [phone] Blood 05/23/2024 1:08 PM CDT 05/23/2024 1:14 PM CDT Alejandro Mcclain MD LAB BLOOD ORDERABLES Final Result Performing Organization Address [facility] de Phone Number [facility] Department [place] [address] * US Guided Embryo Transfer (05/23/2024 11:24 AM CDT) Anatomical Region Laterality Modality Entire body N/A Ultrasound 05/23/2024 12:0 0 PM CDT Impressions 05/23/2024 12:25 PM CDT Embryo transfer performed under ultrasound guidance. Narrative Procedure Note Tiffany Gonzales MD - 05/23/2024 IMPRESSION: Embryo transfer performed under ultrasound guidance. us Alejandro Mcclain MD IMG OB US [...] was last revised 2017. Testing performed by: [facility], [address] [place], [place] [address] [phone] Blood 05/16/2024 6:45 AM CDT 05/16/2024 8:35 AM CDT Alejandro Mcclain MD LAB BLOOD ORDERABLES Final Result [facility] Department [place] [address] * Estradiol (05/16/2024 6:45 AM CDT) Estradiol 2,011.0 pg/mL Comment: Interpretive Data Males: 11 43 pg/mL Females: Premenopausal: 31 533 pg/mL Postmenopausal: < 50 pg/mL Patients treated with Fluvestrant (Faslodex) should be tested using an alternate assay such as LC-MS due to potential for cross-reactivity. Estradiol varies widely throughout the menstrual cycle. Current interpretive data was last revised 2023. Testing performed by: [facility], [address] [place] [address], [place] [facility] [phone] Blood 05/16/2024 6:45 AM CDT 05/16/2024 8:35 AM CDT us Alejandro Mcclain MD LAB BLOOD ORDERABLES Final Result [facility] Department [place] [address] * US Pelvis Limited (05/14/2024 7:15 AM [...] was last revised 2017. Testing performed by: [facility], [address] [place], [place] [address] [phone] Blood 05/14/2024 7:10 AM CDT 05/14/2024 8:50 AM CDT Alejandro Mcclain MD LAB BLOOD ORDERABLES Final Result [facility] Department of Laboratories [place], [place] [id number] * Estradiol (05/14/2024 7:10 AM CDT) Estradiol 952.8 pg/mL Comment: Interpretive Data Males: 11 43 pg/mL Females: Premenopausal: 31 533 pg/mL Postmenopausal: < 50 pg/mL Patients treated with Fluvestrant (Faslodex) should be tested using an alternate assay such as LC-MS due to potential for cross-reactivity. Estradiol varies widely throughout the menstrual cycle. Current interpretive data was last revised 2023. Testing performed by: [facility], [address] [place], [place] [facility] [phone] Blood 05/14/2024 7:10 AM CDT 05/14/2024 8:50 AM CDT Alejandro Mcclain MD LAB BLOOD ORDERABLES Final Result [facility] Department [place] [address] * US Pelvis Limited (05/12/2024 7:37 AM [...] was last revised 2017. Testing performed by: [facility], [address] [place] [address] [id number] Blood 05/12/2024 7:34 AM CDT 05/12/2024 8:00 AM CDT Alejandro Mcclain MD LAB BLOOD ORDERABLES Final Result Performing Organization Address [facility] de Phone Number [facility] [place] [employer] [place] [place] [address] * Estradiol (05/12/2024 7:34 AM CDT) Pathologist [facility] Estradiol 427.3 pg/mL Comment: Interpretive Data Males: 11 43 pg/mL Females: Premenopausal: 31 533 pg/mL Postmenopausal: < 50 pg/mL Patients treated with Fluvestrant (Faslodex) should be tested using an alternate assay such as LC-MS due to potential for cross-reactivity. Estradiol varies widely throughout the menstrual cycle. Current interpretive data was last revised 2023. Testing performed by: [facility], [address] [place] [phone] Blood 05/12/2024 7:34 AM CDT 05/12/2024 8:00 AM CDT Alejandro Mcclain MD LAB BLOOD ORDERABLES Final Result Performing Organization Address [facility] Co ok Phone Number [facility] [place] [address] * US Pelvis Limited (05/10/2024 7:58 AM [...] - 05/10/2024 IMPRESSION: 3.8 mm lining; AFC=36 us Alejandro Mcclain MD IMG US PROCEDURES Final [...] was last revised 2017. Testing performed by: [facility], [address] [place] [address] [phone] Blood 05/10/2024 7:52 AM CDT 05/10/2024 9:24 AM CDT Alejandro Mcclain MD LAB BLOOD ORDERABLES Final Result [facility] Department [place] [address] * Estradiol (05/10/2024 7:52 AM [...] was last revised 2023. Testing performed by: [facility], [address] [place] [address], [address] [phone] Blood 05/10/2024 7:52 AM CDT 05/10/2024 9:24 AM CDT Alejandro Mcclain MD LAB BLOOD ORDERABLES Final Result Performing Organization Address [facility] Co de Phone Number [facility] [employer] [place] [place] [address] * Progesterone (05/08/2024 7:01 AM CDT) Progesterone 0.39 ng/mL Comment: Interpretive Data Males: <0.15 ng/mL Females: Follicular <0.89 ng/mL Luteal 1.8 - 24.0 ng/mL Ovulation <12.0 ng/mL 1st Trimester 11.0 - 44.0 ng/mL 2nd Trimester 25.0 - 83.0 ng/mL 3rd Trimester 59.0 - 214.0 ng/mL Postmenopausal <0.13 ng/mL Current interpretive data was last revised 2017. Testing performed by: [facility], [address] [place] [address], [facility]. [address] [place] [phone] Blood 05/08/2024 7:01 AM CDT 05/08/2024 9:23 AM CDT Alejandro Mcclain MD LAB BLOOD ORDERABLES Final Result Performing Organization Address [facility] Co de Phone Number [facility] Department [place] [address] * Estradiol (05/08/2024 7:01 AM CDT) Estradiol 32.4 pg/mL Comment: Interpretive Data Males: 11 43 pg/mL Females: Premenopausal: 31 533 pg/mL Postmenopausal: < 50 pg/mL Patients treated with Fluvestrant (Faslodex) should be tested using an alternate assay such as LC-MS due to potential for cross-reactivity. Estradiol varies widely throughout the menstrual cycle. Current interpretive data was last revised 2023. Testing performed by: [facility], [address] [place] [address], [address], [facility] [phone] Blood 05/08/2024 7:01 AM CDT 05/08/2024 9:23 AM CDT Alejandro Mcclain MD LAB BLOOD ORDERABLES Final Result [facility] Department [place] [address] * US Pelvis Limited (05/03/2024 7:05 AM GOLF CADDY) Cul de Sac No free fluid visualized [facility] Left Antral Follicle Count Antral Follicle Count < 10 mm = 17 [facility] Right Antral Follicle Count Antral Follicle Count < 10 mm = 20 [facility] Endometrial Thickness 4.4 mm&millim eters [facility] Anatomical Region Laterality Modality Pelvis N/A Ultrasound 05/03/2024 7:13 AM GOLF CADDY Impressions 05/03/2024 8:44 AM GOLF CADDY 4.4 mm lining; AFC=37 Narrative Procedure Note Alejandro Mcclain MD - 05/03/2024 IMPRESSION: 4.4 mm lining; AFC=37 Alejandro Mcclain MD IMG US PROCEDURES Final Re sult * Progesterone (05/03/2024 6:56 AM GOLF CADDY) Progesterone 0.23 ng/mL Comment: Interpretive Data Males: <0.15 ng/mL Females: Follicular <0.89 ng/mL Luteal 1.8 - 24.0 ng/mL Ovulation <12.0 ng/mL 1st Trimester 11.0 - 44.0 ng/mL 2nd Trimester 25.0 - 83.0 ng/mL 3rd Trimester 59.0 - 214.0 ng/mL Postmenopausal <0.13 ng/mL Current interpretive data was last revised 2017. Testing performed by: [facility], [address] [place] [address], [address] [phone] Blood 05/03/2024 6:56 AM GOLF CADDY 05/03/2024 8:29 AM GOLF CADDY Alejandro Mcclain MD LAB BLOOD ORDERABLES Final Result Performing Organization Address [facility] Co de Phone Number [facility] Department [place] [place] [address] * Estradiol (05/03/2024 6:56 AM GOLF CADDY) Pathologist [facility] Estradiol <5.0 pg/mL Comment: Below measuring range Interpretive Data Males: 11 43 pg/mL Females: Premenopausal: 31 533 pg/mL Postmenopausal: < 50 pg/mL Patients treated with Fluvestrant (Faslodex) should be tested using an alternate assay such as LC-MS due to potential for cross-reactivity. Estradiol varies widely throughout the menstrual cycle. Current interpretive data was last revised 2023. Testing performed by: [facility], [address] [place] [address], [facility]. [address] [place] [phone] Blood 05/03/2024 6:56 AM GOLF CADDY 05/03/2024 8:29 AM GOLF CADDY Alejandro Mcclain MD LAB BLOOD ORDERABLES Final Result Performing Organization Address [facility] Co de Phone Number [facility] [place] [address] * Hepatitis C antibody Blood (03/01/2024 1:30 PM GOLF CADDY) Hep C Ab Nonreactive Nonreactive Comment:Antibodies to HCV no t detected. Does NOT exclude the possibility of recent exposure to HCV. Current interpretive data was last revised on 21 Blood 03/01/2024 1:30 PM GOLF CADDY 03/01/2024 6:00 PM GOLF CADDY us Alejandro Mcclain MD LAB MICROBIOLOGY - GENERAL ORDERABLES Final Result [facility] Department [place] [address] from Last 3 Months or Most Recently Relevant to Health Maintenance Insurance [employer] H[employer]/PPO Address: [address] [address] [place] [address] [employer]O Address: [address] [address] [place] [address] [employer]O Address: [facility] [address] [place] [address] Advance Directives For more information, please contact: [phone] * Full Code (Latest Code Status on File) Date Activated Date Inactivated Comments 05/18/2024 6:33 AM 05/19/2024 5:00 AM * Full Code Date Activated Date Inactivated Comments 03/08/2018 7:36 AM 03/08/2018 12:14 PM * Full Code Date Activated Date Inactivated Comments 10/03/2017 11:55 PM 10/04/2017 5:29 AM 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
== END 2024-07-30 12:21 | disposition home or self-care (01) ==
PROVIDERS: PCP Family Medicine; Visit Provider Obstetrics & Gynecology
DX: O36.80X0 Pregnancy with inconclusive fetal viability, not applicable or unspecified (principal); Z3A.12 12 weeks gestation of pregnancy
CPT/HCPCS: 76801

== ENCOUNTER 2024-08-11 09:09 | Outpatient (CLI) | payer OTHER, SELFPAY ==
--- NOTE | ~2024-08-11 | US_ITS ---
US OB limited 08/11/2024 09:34 Indication: Amniotic fluid disorder. Follow-up subchorionic hemorrhage. Procedure: High-resolution Limited obstetrical ultrasound. Comparison: Ultrasound dated 07/30/2024 Findings: There is single living intrauterine in vertex presentation. heart rate is 1 54 BPM. Placenta is anterior without previa. There is a uterine fibroid measuring 4.3 cm. Given the l ack of interval change from prior examination. This is less likely to represent a mendel placental hemo rrhage. Impression: 1: Single living intrauterine in vertex presentation. 2: Hypoechoic 4.3 cm mass, most likely uterine fibroid given the lack of interval change. Hemorrhage is less favored. Recommend attention to this on subsequent examinations. Reviewed, dictated and finalized at location B. Impression: 1: Single living intrauterine in vertex presentation. 2: Hypoechoic 4.3 cm mass, most likely uterine fibroid given the lack of interv al change. Hemorrhage is less favored. Recommend attention to this on subsequen t examinations.
== END 2024-08-11 09:10 | disposition home or self-care (01) ==
LOC: MICIMG 09:10
PROVIDERS: PCP Obstetrics & Gynecology; Visit Provider Obstetrics & Gynecology
DX: O41.8X10 Other specified disorders of amniotic fluid and membranes, first trimester, not applicable or unspecified (principal); O46.8X1 Other antepartum hemorrhage, first trimester; Z3A.00 Weeks of gestation of pregnancy not specified
CPT/HCPCS: 76815

== ENCOUNTER 2024-10-01 17:41 | Observation (INO) | payer OTHER, SELFPAY ==
--- OUTSIDE RECORDS SUMMARY | 2024-10-01 17:47 | XMS_ITS | Clinical Summary ---
Author Organization [facility] Address [address] [place] [address] Care Team Providers Care Child Abuse Worker Name Role Phone Rocael Burr MD Primary Care Provider [phone] Allergies Active Allergy Reactions Criticality Noted Date Comments Cephalosporins Rash Medium 05/09/2012 [place] Rash Medium 05/09/2012 Nickel Rash Medium 05/09/2012 [...] directed by 20 mL 2 5 Active Additional Information Patient not taking.Reported on 08/22/2024 estradioL (ESTRACE) 2 mg tablet TAKE 1 TABLET BY MOUTH 2 TIMES A DAY. 180 tablet 1 5 Active Additional Information Patient not taking.Reported on 08/22/2024 25/iron fum/folic/dha (-1 ORAL) Take 1 tablet/capsule by mouth daily Active escitalopram (LEXAPRO) 5 mg tablet Take 1 tablet (5 mg total) by mouth daily Active escitalopram (LEXAPRO) 10 mg tablet every other day 5 Active Active Problems Problem Noted Date Diagnosed Date Marginal insertion of umbili yamile cord affecting management of mother in second trimester 08/22/2024 Overview (08/22/2024): Marginal cord insertion can be associated with growth restriction. Third trimester growth assessment recommended. Anxiety disorder 08/20/2024 Overview (08/20/2024): Counseling 08/20/2024: Anxiety disorders affect 1 in 5 patients and can cause significant functional impairment. Patients with under treated anxiety have a higher risk of depression. They also have a higher risk of , low weight, and behavioral challenges in offspring. Regular follow-up with a mental health provider is recommended throughout and . Current regimen: escitalopram 10 mg Plan: [] Continue above medication regimen [] Consider baseline EPDS [] Monitor mood throughout and period resulting from ass isted reproductive technology in second trimester 08/13/2024 Overview (08/22/2024): risks associated with IVF include miscarriage, congenital anomalies specifically cardiac defects, placental disorders, gestational diabetes, section, delivery, growth restriction, and stillbirth. All patients with a history of IVF are recommended to undergo echocardiogram, although increased risks of defects are generally limited to cases with ICSI. NIPT low risk per patient Recommendations: Specialized anatomic survey at 18-22 weeks is recommended echocardiogram at 20-24 weeks is recommended At least 3rd trimester growth ultrasound Weekly testing at 36 weeks Consider risk reducing induction of labor at 39 weeks Supervision of high-risk , second trime ster 08/13/2024 Overview (08/20/2024): [x] OB consult only, [] Co-management vs. [] Full M Care; [] Red Team [] Blue Team Referring Provider: Jorge Luis Dye [phone] [] or Medicare Insurance [x] Dating Criteria: D5 FET 05/23/24 with BETTYE 02/08/25 [x] Labs: Rh [A+], Ab [negative], Rubella [immune], HIV [non-reactive], HepBSAg [non-reactive], HepBSAb [not done], HepBCAb [not done], RPR [non- reactive], Hep C [non-reactive], Varicella [negative], GC/CT [negative/negative] [] Aneuploidy Screening: [] Carrier Screening: [x] Hgb electrophoresis: Normal Hgb present [x] CBC/Hgb: 11.8/36.0/plt 344 [] Early 1hr GTT (if indicated): [x] UCx: 08/02/24: negative [x] Pap: 03/13/24: NILM [] LD ASA (if indicated): [] EPDS [ ]; PNBHS referral (if indicated): 2nd Trimester [] Anatomy ultrasound: [] CBC/1hr gtt at 24-28wks: [] Rhogam at 28 wks (if Rh neg): 3rd Trimester [] CBC/HIV/RPR/T&S: [] GBS: [] GC/CT (if indicated): [] testing: Counseling [] MOD: [] Place of delivery: [] Epidural: [] Accepts Blood Products: [] Stop ASA: [] MOC: [] Method of feeding: [] Technical Information Specialist (specifically which provider): [] PP Depression Discussed: [] PP visits scheduled: Vaccines [] Flu Shot (Sep-Jan): [] COVID vaccine: [] Tdap (27-36wks): [] RSV vaccine (32-36wks): [] PP HPV vaccine counseling (<=26 yo): Maternal varicella, non-immune 08/13/2024 Overview (08/20/2024): Offer varivax [facility] 08/13/[facility] Overview (08/22/2024): Imaging today confirms a right lateral uterine fibroid measuring about 4 cm in diameter. Some fibroids may increase in size in . Fibroids greater than 5 cms have a higher chance of increasing in size. Larger fibroids may be associated with growth abnormalities. Larger fibroids can undergo degeneration causing pain and pelvic pressure. There is an increase risk of miscarriage in the first trimester if the fibroid is submucosal or located in the endometrial cavity. Fibroids can also be associated with malpresentation, abnormal placentation, labor dystocia and delivery, hemorrhage and possibly abruption and delivery but all these associations may be dependent on their size and location. Given the presence of one fibroid, Nyla is at relatively low risk for these complications. At least one growth assessment in the third trimester is recommended. Encounter for assisted repro ductive fertility procedure cycle 05/18/2024 Diarrhea 02/12/2021 Overview (02/12/2021): Added automatically from request for surgery [id number] Epigastric pain 02/12/2021 Overview (02/12/2021): Added automatically from request for surgery [id number] Colitis 02/12/2021 Overview (02/12/2021): Added automatically from request for surgery [id number] Multiple food allergies 03/05/2019 Eosinophilic esophagitis 08/22/2018 Environmental allergies 02/16/2018 GERD (gastroesophageal reflux disease) 8 Food impaction of esophagus 10/03/2017 Estimated Date of Delivery Comme nts Yes 02/08/2025 Based on Day 5 E mbryo Transfer Encounters Date Type Department Care Team Description 08/22/2024 4:15 PM CDT Clinical Support [facility] Obstetrics and Gynecology [address] [place] [id number] 08/22/2024 3:30 PM CDT Office Visit [facility] Maternal- Medicine [address] [place] [address] 7th [address] [place] [address] resulting from assisted reproductive technology in second trimester (Primary Dx); Supervision of high-risk , second trimester; Uterine fibroids affecting in second trimester; Supervision of high-risk , unspecified trimester; Marginal insertion of umbilical cord affecting management of mother in second trimester 08/22/2024 2:42 PM CDT - 08/22/2024 11:59 PM CDT Hospital Encounter [facility] Outpatient [facility] - Ultrasound [address] [place] [address], 7th Floor, [address] [place] [address] Unspecified high-risk Discharge Disposition: Discharge to home or self care 08/08/2024 Telephone [facility] Obstetrics and Gynecology [address] [place] [phone] Kimber Bergeron 08/02/2024 Telephone Obstetrics and Gynecology Clinic [address] [facility] 3rd Floor [address] [place] [address] Linda Belle RN 08/02/2024 Telephone Obstetrics and Gynecology Clinic [address] [facility] 3rd Floor [address] [place] [address] Milly Lepe LPN 07/30/2024 Telephone [facility] Reproductive Endocrinology [address] [facility] [address] [place] [phone] Sandy Vera KO/ OB records from Last 3 Months Immunizations Immunization Administration Dates Next Due Influenza, Trivalent, Cell C ulture-based MDCK, Preservative Free, Antibiotic Free, Intramuscular 12/07/2023 Surgical History Surgery Date Site/Laterality Comments TONSILLECTOMY 02/28/1999 - 02/28/2000 ESOPHAGOGASTRODUODENOSCOPY 09/28/2017 - 10/28/2017 Food impaction SEPTOPLASTY OVUM / OOCYTE RETRIEVAL 05/18/2024 EGG RETRIEVAL TRANSFER EMBRYO INTRAUTERINE 05/23/2024 EMBRYO TRANSFER 1 DAY 5 Medical History Medical History Date Comments Fibroid GERD (gastroesophageal reflux disease) Menstrual problem Anxiety Family History Medical History Relation Name Comments TOVA disease Father Diabetes Mother Briana Goodwin TOVA disease Mother Briana Goodwin Hypertension Mother Briana Goodwin Relation Name Status Comments Father Mother Briana Goodwin Social History Tobacco Use Types Packs/Day Years Used Date Smoking Tobacco: Never Smokeless Tobacco: Never Tobacco Cessation:Counseling Given: Not Answered Alcohol Use Standard Drinks/Week Comments Yes 0 [...] you feel afraid or unsafe? Denies 05/16/2024 Estimated Date of Delivery Comme nts Yes 02/08/2025 Based on Day 5 E mbryo Transfer Sex and Gender Information Value Date Recorded Sex Assigned at Female 05/02/2018 8:22 AM COMMUNITY HEALTH PROGRAM REPRESENTATIVE Legal Sex Female 2:25 AM COMMUNITY HEALTH PROGRAM REPRESENTATIVE Gender Identity Female 05/02/2018 8:22 AM COMMUNITY HEALTH PROGRAM REPRESENTATIVE Sexual Orientation Straight 05/02/2018 8: 22 AM COMMUNITY HEALTH PROGRAM REPRESENTATIVE Obstetrics History Para Term AB IAB SAB Ectopic Multiple Livin g Live Births 1 0 0 0 0 0 0 0 0 0 0 Date Outcome GA Total Labor Labor/2nd/3rd Weight Sex Type Anes PTL Tamara A1 A5 Name Clin Current Summary Episode Dates Number of Fetuses Estimated Date of Delivery 08/13/2024 - Present (10/01/2024) 02/08/2025 (set by Amanda Ames MD on 08/22/2024 based on Day 5 Embryo Transfer on 05/23/2024) Dating Summary Based On BETTYE GA Diff Ultrasound on 07/30/2024 02/06/2025 +2d GA:12w5d Ultrasound on 06/22/2024 02/08/2025 Same GA:7w0d Day 5 Embryo Transfer on 05/23/2024 02/08/2025 Working Vitals Pregravid Weight Height TWG (As of 10/01/2024) Pregrav id BMI 160 cm (5' 3) Date GA Fund Present FHR Mvmt BP Weight Edema Alb Glu Ket Dil/ Eff/Sta 15w5d Inpatient data not displayed here. See encounter summary. Notes Progress Notes - Office Visi t - 08/22/2024 - GA:15w5d 08/22/2024 - 15w5d - Amanda Ames MD Maternal Medicine Consult Note Reason for Consult: Concern for fibroid versus subchorionic hemorrhage in Requesting Provider: Dr. Jorge Luis Dye Dear Dr. Dye, We had the pleasure of seeing your patient Nyla Beaulieu in our office today. As you know, she is a 29 y.o. at 15w5d here today for a consult regarding findings on an ultrasound on . At this time, a hypoechoic area was seen along the right side of the uterus measuring 3.2 x 4.1 x 2.7 cm. This ultrasound was performed when she presented with pelvic cramping. Notably this is an IVF and a small subchorionic hemorrhage was noted early on in gestation. She has no complaints today. Patient Active Problem List Diagnosis GERD (gastroesophageal reflux disease) Food impaction of esophagus Environmental allergies Eosinophilic esophagitis Multiple food allergies Diarrhea Epigastric pain Colitis Encounter for assisted reproductive fertility procedure cycle resulting from assisted reproductive technology in second trimester Supervision of high-risk , second trimester Maternal varicella, non-immune Uterine fibroids affecting in second trimester Anxiety disorder Marginal insertion of umbilical cord affecting management of mother in second trimester Past Medical History: Diagnosis Date Anxiety Fibroid GERD (gastroesophageal reflux disease) Menstrual problem Past Surgical History: Procedure Laterality Date ESOPHAGOGASTRODUODENOSCOPY 09/2017 Food impaction OVUM / OOCYTE RETRIEVAL 05/18/2024 EGG RETRIEVAL SEPTOPLASTY TONSILLECTOMY 2000 TRANSFER EMBRYO INTRAUTERINE 05/23/2024 EMBRYO TRANSFER 1 DAY 5 Past Gynecologic History: No history of STIs No history of abnormal Pap smears She does report a history of fibroids. OB History Para Term AB Living 1 0 0 0 0 0 SAB IAB Ectopic Multiple Live Births 0 0 0 0 0 # Outcome Date GA Lbr Saleem/2nd Weight Sex Type Anes PTL Lv 1 Current Medications: Zyrtec Pantoprazole Lexapro vitamin B6 Family History: Family History Problem Relation Age of Onset TOVA disease Father TOVA disease Mother Diabetes Mother Hypertension Mother Specifically, she denies a family history of defects including spina bifida, congenital heart defects, limb defects, or kidney defects, or known heritable metabolic or developmental disorders. She denies a family history of inherited disorders including cystic fibrosis, thalassemia, sickle cell disease, or muscular dystrophy. 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 She lives with her . She does not use tobacco alcohol or other substances. Datinw5d based on embryo transfer dating Review of Systems Negative complete review of systems Physical Exam Vitals BP 121/86 (BP Location: Left arm, Patient Position: Sitting) Pulse 84 Ht 160 cm (5' 3) Wt 185 lb (83.9 kg) SpO2 99% BMI 32.77 kg/m General: comfortable, no acute distress, normal attention and speech Psych: mood and affect normal Neuro: oriented, no gross motor deficits Eyes: normal conjunctiva, Head and neck: normocephalic, no gross abnormalities MSK: normal gross range of motion Lungs: normal work of breathing, no cough Cardiovascular: normal heart rate Abdomen: Gravid Skin: no uncovered rashes or lesions Rheum: no abnormalities Ultrasound at our Diagnostic Center: Ultrasound 08/22/2024: Narrative & Impression IMPRESSION: A single intrauterine was seen. Cardiac motion was observed. The biometry corresponded to reported dating criteria. A left-sided echogenic intracardiac focus was seen and is a very common finding noted in up to 3-5% of normal fetuses. It has no structural or functional implications on cardiac function. It is thought to be a weak marker of aneuploidy. The patient has had NIPT drawn which was normal. Given the weak association and the reassuring genetic screening, this finding was not discussed with the patient as it is unlikely to modify the aneuploidy risk significantly. A marginal cord insertion was noted, which slightly increases the risk for and low weight. A marginal cord insertion may evolve to a velamentous cord insertion by term. Recommend repeat assessment at the anatomic survey. A right lateral anterior wall fibroid measuring 3.9 cm is noted. The adnexa appeared normal bilaterally. Assessment and Recommendations: Ms. Nyla Beaulieu is a moriah 29 y.o. at 15w5d here today for a consultation today regarding the following: Uterine fibroid: Imaging today confirms a right lateral uterine fibroid measuring about 4 cm in diameter. Some fibroids may increase in size in . Fibroids greater than 5 cms have a higher chance of increasing in size. Larger fibroids may be associated with growth abnormalities. Larger fibroids can undergo degeneration causing pain and pelvic pressure. There is an increase risk of miscarriage in the first trimester if the fibroid is submucosal or located in the endometrial cavity. Fibroids can also be associated with malpresentation, abnormal placentation, labor dystocia and delivery, hemorrhage and possibly abruption and delivery but all these associations may be dependent on their size and location. Given the presence of one fibroid, Nyla is at relatively low risk for these complications. At least one growth assessment in the third trimester is recommended. Marginal cord insertion site: A marginal cord insertion site was also seen today on ultrasound. A marginal cord insertion site can be associated with growth restriction and this is an under indication for at least 1/3 trimester growth assessment. echogenic intracardiac focus: And echogenic intracardiac focus was seen in the fetus today. We reviewed the association with a soft marker with Down syndrome. The patient reports low risk NIPT testing was already performed in her , and given the low residual risk after this testing, no additional evaluation is recommended. In vitro fertilization: risks associated with IVF include miscarriage, congenital anomalies specifically cardiac defects, placental disorders, gestational diabetes, section, delivery, growth restriction, and stillbirth. All patients with a history of IVF are recommended to undergo echocardiogram, although increased risks of defects are generally limited to cases with ICSI. NIPT low risk per patient Specialized anatomic survey is recommended at 18-22 weeks. The patient declined to have this scheduled with our group as she already has 1 scheduled elsewhere by her report. echocardiogram is recommended. Third trimester growth assessment recommended. Weekly testing should start at 36 weeks and risk reducing induction of labor should be considered at 39 weeks. Her is also so complicated by anxiety, allergies and GERD. Due to the consultative nature of this visit today these conditions were not discussed. Thank you for involving the Maternal- Medicine practice in the care of this moriah patient. Should you have any further questions or concerns, please do not hesitate to contact our office. Amanda Ames MD 08/22/2024 Progress Notes - Abstract - 08/13/2024 - GA:14w3d 08/13/2024 - 14w3d - Shalonda Galdamez RMA Current OB records are under media tab. PHI records are in Epic. Last Filed Vital Signs Vital Sign Reading Time Taken Comments Blood Pressure 121/86 08/22/2024 3:22 PM CDT Pulse 84 08/22/2024 3:22 PM CDT Temperature 36.6 C (97.9 F) 05/18/2024 8:16 AM CDT Respiratory Rate 14 05/18/2024 9:05 AM CDT Oxygen Saturation 99% 08/22/2024 3:22 PM CDT Inhaled Oxygen Concentration - - Weight 83.9 kg (185 lb) 08/22/2024 3:22 PM CDT Height 160 cm (5' 3) 08/22/2024 3:22 PM CDT Body Mass Index 32.77 08/22/2024 3:22 PM CDT Plan of Treatment Health Maintenance Due Date Last Done Comments Cervical Cancer Screening 1996 Depression Screening 1996 Regular Well Visit/Exam 18-64 2014 DTaP/Tdap/Td Vaccine (7 - Td or Tdap) 03/25/2020 03/25/2010, 09/27/2001, 01/15/1998, Additional history exists HPV Vaccines (1 - 3-dose SCDM series) 05/12/2023 Covid-19 Vaccine (2023- season) 2023 03/12/2020, 02/20/2020 Influenza Vaccine (#1) 2024 , 12/02/2020, 12/18/2019, Additional history exists Hepatitis B Screening Completed 1996 , 1996, 1996 Varicella Vaccines Completed 09/24/2006, 05/21/1997 Hepatitis C Screening Completed 08/02/2024, 025 Pneumococcal vaccine <65 Aged Out No longer eligible based on patient's age to complete this topic Procedures Procedure Name Priority Date/Time Associated Diagnosis Comments US OB LIMITED Schedule Routine, Read Routine (OP Routine) 08/22/2024 2:42 PM CDT Unspecified high-risk TSH Routine 08/02/2024 ABO/RH Routine 08/02/2024 CBC WITHOUT DIFFERENTIAL Routine 08/02/2024 ANTIBODY SCREEN Routine 08/02/2024 VARICELLA ZOSTER ANTIBODY, IGG Routine 08/02/2024 RUBELLA IGG Routine 08/02/2024 RPR Routine 08/02/2024 HEPATITIS B SURFACE ANTIGEN Routine 08/02/2024 HEPATITIS C ANTIBODY Routine 08/02/2024 HIV 1/2 ANTIBODY PLUS P24 ANTIGEN Routine 08/02/2024 URINE CULTURE Routine 08/02/2024 from Last 3 Months Results * US Ob Limited (08/22/2024 2:42 PM CDT) Fetus# Fetus1 VIEWPOINT Estimated Weight 134 g&grams VIEWPOINT Placenta Details anterior VIEWPOINT Presentation Breech VIEWPOINT Anatomical Region Laterality Modality Abdomen N/A Ultrasound 08/22/2024 2:43 PM CDT Impressions 08/22/2024 3:38 PM CDT A single intrauterine was seen. Cardiac motion was observed. The biometry corresponded to reported dating criteria. A left-sided echogenic intracardiac focus was seen and is a very common finding noted in up to 3-5% of normal fetuses. It has no structural or functional implications on cardiac function. It is thought to be a weak marker of aneuploidy. The patient has had NIPT drawn which was normal. Given the weak association and the reassuring genetic screening, this finding was not discussed with the patient as it is unlikely to modify the aneuploidy risk significantly. A marginal cord insertion was noted, which slightly increases the risk for and low weight. A marginal cord insertion may evolve to a velamentous cord insertion by term. Recommend repeat assessment at the anatomic survey. A right lateral anterior wall fibroid measuring 3.9 cm is noted. The adnexa appeared normal bilaterally. Narrative Procedure Note Can Dixon MD - 08/22/2024 IMPRESSION: A single intrauterine was seen. Cardiac motion was observed. Thefetal biometry corresponded to reported dating criteria. A left-sided echogenic intracardiac focus was seen and is a very commonfinding noted in up to 3-5% of normal fetuses. It has no structural orfunctional implications on cardiac function. It is thought to be a weakmarker of aneuploidy. The patient has had NIPT drawn which was normal.Given the weak association and the reassuring genetic screening, thisfinding was not discussed with the patient as it is unlikely to modify theaneuploidy risk significantly. A marginal cord insertion was noted, which slightly increases the risk forpreterm and low weight. A marginal cord insertion may evolveto a velamentous cord insertion by term. Recommend repeat assessment atthe anatomic survey. A right lateral anterior wall fibroid measuring 3.9 cm is noted. Theadnexa appeared normal bilaterally. Jorge Luis Dye MD IMG OB US PROCEDURES Final Result * HIV 1/2 Antibody plus p24 Antigen Blood (08/02/2024) SCRIBED HIV P24 Nonreactive Nonreactive , Invalid Blood Result [facility] Jorge Luis Dye MD LAB MICROBIOLOGY - GENERAL ORDERABLES Final Result * Hepatitis C antibody Blood (08/02/2024) SCRIBED HCV ab non Blood Jorge Luis Dye MD LAB MICROBIOLOGY - GENERAL ORDERABLES Final Result * ABO/Rh (08/02/2024) SCRIBED ABO/Rh A+ Blood Jorge Luis Dye MD LAB BLOOD BANK TEST ORDERAB LES Final Result * Rubella IgG antibody Blood (08/02/2024) Rubella IgG Scribed Immune Blood us Jorge Luis Dye MD LAB MICROBIOLOGY - GENERAL ORDERABLES Final Result * RPR Blood (08/02/2024) SCRIBED RPR Non-Reacti ve Non-Reacti ve Blood us Jorge Luis Dye MD LAB MICROBIOLOGY - GENERAL ORDERABLES Final Result * Hepatitis B Surface Antigen Blood (08/02/2024) SCRIBED HBsAg Nonreactive Nonreactive , Invalid Blood us Jorge Luis Dye MD LAB MICROBIOLOGY - GENERAL ORDERABLES Final Result * CBC without differential (08/02/2024) Pathologist [facility] Hct 36.0 Hgb 11.8 Plt 344 Blood us Jorge Luis Dye MD LAB BLOOD ORDERABLES Final Result * Antibody screen (08/02/2024) SCRIBED Indirect Antiglobulin negative Blood us Jorge Luis Dye MD LAB BLOOD BANK TEST ORDERAB LES Final Result * Urine culture (08/02/2024) SCRIBED Urine culture negative us Jorge Luis Dye MD LAB MICROBIOLOGY - GENERAL ORDERABLES Final Result * Varicella Zoster IgG antibody Blood (08/02/2024) SCRIBED Varicella Zoster, IgG Negative Blood us Jorge Luis Dye MD LAB MICROBIOLOGY - GENERAL ORDERABLES Final Result * TSH (08/02/2024) Scribed TSH 1.55 mcU/mL Blood Jorge Luis Dye MD LAB BLOOD ORDERABLES Final Result from Last 3 Months Insurance [employer] Member Subscriber Plan / Payer (Ef fective 2021-Present) Name:Nyla Beaulieu Member ID:[id number] Relation to Subscriber:Self Name:Nyla Beaulieu Subscriber ID:[id number] Payer ID:[id number] (NAIC) Type:[facility] Address: [facility] [id number] [address] EM[employer] Advance Directives For more information, please contact: [phone] * Full Code (Latest Code Status on File) Date Activated Date Inactivated Comments 05/18/2024 6:33 AM 05/19/2024 5:00 AM * Full Code Date Activated Date Inactivated Comments 03/08/2018 7:36 AM 03/08/2018 12:14 PM * Full Code Date Activated Date Inactivated Comments 10/03/2017 11:55 PM 10/04/2017 5:29 AM Care Teams Child Abuse Worker Relationship Specialty Start Date End Date Rocael Burr MD [address] [place] [id number] PCP - General Family Medicine 02/16/18
--- OUTSIDE RECORDS SUMMARY | 2024-10-01 17:47 | XMS_ITS | Referral Summary ---
Author Organization [facility] Address [address] [place] [address] Care Team Providers Care Advanced Practice Professional Name Role Phone Rocael Burr MD Primary Care Provider [phone] Encounters Date Type Department Care Team Description 08/22/2024 4:15 PM CDT Clinical Support [facility] Obstetrics and Gynecology [address] [place] [address] Health 7th [place] [address] 08/22/2024 3:30 PM CDT [facility] [address] [place] [address] 7th Floor [address] [place] [address] resulting from assisted reproductive technology in second trimester (Primary Dx); Supervision of high-risk , second trimester; Uterine fibroids affecting in second trimester; Supervision of high-risk , unspecified trimester; Marginal insertion of umbilical cord affecting management of mother in second trimester 08/22/2024 2:42 PM CDT - 08/22/2024 11:59 PM CDT Hospital Encounter [facility] - Ultrasound [address] [place] [address], 7th Floor, [address] [place] [address] Unspecified high-risk Discharge Disposition: Discharge to home or self care 08/08/2024 Telephone [facility] Obstetrics and Gynecology [address] [place] [address] Kimber Bergeron 08/02/2024 Telephone [facility]necology Clinic [address] [place] [address] 3rd Floor [address] [place] [id number] Linda Belle RN 08/02/2024 Telephone Obstetrics and Gynecology Clinic [address] [facility] 3rd Floor [address] [place] [address] Milly Lepe LPN 07/30/2024 Telephone [facility] Reproductive Endocrinology [address] [facility] [address] [place] [address] Sandy Vera KO/ OB records from Last 3 Months Allergies Active Allergy Reactions Criticality Noted Date Comments Cephalosporins Rash Medium 05/09/2012 [place] Rash Medium 05/09/2012 Nickel Rash Medium 05/09/2012 [...] to 100mg IM daily as directed by MD 20 mL 2 5 Active Additional Information [...] consult only, [] Co-management vs. [] Full MFM Care; [] Red Team [] Blue Team Referring Provider: Jorge Luis Dye [phone] [] or Medicare Insurance [x] Dating Criteria: [...] [] MOC: [] Method of feeding: [] Regrader (specifically which provider): [] PP Depression Discussed: [] PP visits scheduled: Vaccines [] Flu Shot (Oct-Jan): [] COVID vaccine: [] Tdap (27-36wks): [] RSV vaccine (32-36wks): [] PP HPV vaccine counseling (<=26 yo): Maternal varicella, non-immune 08/13/2024 Overview (08/20/2024): Offer varivax Uterine fibroids affecting in second t rimester 08/13/2024 Overview (08/22/2024): Imaging today confirms a [...] (02/12/2021): Added automatically from request for surgery [id number] Epigastric pain 02/12/2021 Overview (02/12/2021): Added automatically from request for surgery [id number] Colitis 02/12/2021 Overview (02/12/2021): Added automatically from request for surgery [id number] Multiple food allergies 03/05/2019 Eosinophilic esophagitis 08/22/2018 Environmental allergies 02/16/2018 GERD (gastroesophageal reflux disease) 8 Food impaction of esophagus 10/03/2017 Estimated Date of Delivery Comme nts Yes 02/08/2025 Based on Day 5 E mbryo Transfer Immunizations Immunization Administration Dates Next Due Influenza, [...] Sex Assigned at Female 05/02/2018 8:22 AM ENAMEL FINISHER Legal Sex Female 2:25 AM ENAMEL FINISHER Gender Identity Female 05/02/2018 8:22 AM ENAMEL FINISHER Sexual Orientation Straight 05/02/2018 8: 22 AM ENAMEL FINISHER Last Filed Vital Signs Vital Sign Reading [...] 08/22/2024 3:22 PM CDT Plan of Treatment Not on [...] cm is noted. Theadnexa appeared normal bilaterally. us Jorge Luis Dye MD IMG OB US PROCEDURES Final Result * HIV 1/2 Antibody plus p24 Antigen Blood (08/02/2024) SCRIBED HIV P24 Nonreactive Nonreactive , Invalid Blood us Jorge Luis Dye MD LAB MICROBIOLOGY - GENERAL ORDERABLES Final Result * Hepatitis C antibody Blood (08/02/2024) SCRIBED HCV ab non Blood us Jorge Luis Dye MD LAB MICROBIOLOGY - GENERAL ORDERABLES Final Result * ABO/Rh (08/02/2024) SCRIBED ABO/Rh A+ Blood us Jorge Luis Dye MD LAB BLOOD BANK TEST ORDERAB LES Final Result * Rubella IgG antibody Blood (08/02/2024) Pathologist [facility] Rubella IgG Scribed Immune Blood us Jorge Luis Dye MD LAB MICROBIOLOGY - GENERAL ORDERABLES Final Result * RPR Blood (08/02/2024) SCRIBED RPR Non-Reacti ve Non-Reacti ve Blood us Jorge Luis Dye MD LAB MICROBIOLOGY - GENERAL ORDERABLES Final Result * Hepatitis B Surface Antigen Blood (08/02/2024) SCRIBED HBsAg Nonreactive Nonreactive , Invalid Blood Result Sita Dye MD LAB MICROBIOLOGY - GENERAL ORDERABLES Final Result * CBC without differential (08/02/2024) Hct 36.0 Hgb 11.8 Plt 344 Blood us Jorge Luis Dye MD LAB BLOOD ORDERABLES Final Result * Antibody screen (08/02/2024) SCRIBED Indirect Antiglobulin negative Blood Jorge Luis Dye MD LAB BLOOD [...] Final Result from Last 3 Months Insurance [facility] H[facility]/PPO Address: [facility] [address] [place] [address] Member Subscriber Plan / Payer (Ef fective 2021-Present) Name:Nyla Beaulieu Member ID:[id number] Relation to Subscriber:Self Name:Nyla Beaulieu Subscriber ID:[id number] Payer ID:[id number] (NAIC) Type:[facility] Address: [facility] [address] EM[employer] [facility] [facility] H[employer]/PPO Address: [place] [id number] [place] [id number] [facility] H[facility]/PPO Address: [place] [id number] [place] [id number] Advance Directives For more information, please contact: [phone] * Full Code (Latest Code Status on File) Date Activated Date Inactivated Comments 05/18/2024 6:33 AM 05/19/2024 5:00 AM * Full Code Date Activated Date Inactivated Comments 03/08/2018 7:36 AM 03/08/2018 12:14 PM * Full Code Date Activated Date Inactivated Comments 10/03/2017 11:55 PM 10/04/2017 5:29 AM Care Teams Advanced Practice Professional Relationship Specialty Start Date End Date Rocael Burr MD [address] [place] [address] PCP - General Family Medicine 02/16/18
--- OUTSIDE RECORDS SUMMARY | 2024-10-01 17:47 | XMS_ITS | Clinical Summary ---
Author Organization [facility] Address [address] [facility] [place] [address] Care Team Providers Care Structural Engineering Drafting Officer Name Role Phone Rocael Burr MD Primary Care Provider [phone] Source Comments [facility],non-owned Affiliates and Associated Physician Practices is amultiple site organization consisting of ambulatory clinics and hospital sitesin [place], [place], [place] and [place]. This disclosure is being madepursuant to the Care Everywhere program and may not contain all information available regarding this patient. Last updated 17.[facility] Allergies Active Allergy Reactions Criticality Noted Date Comments Cephalosporins Rash Low 05/09/2012 [place] Rash Low 05/09/2012 Nickel Rash Low 05/09/2012 Medications * Be aware that medications may not be up to date on this document. Alwaysverify current medications with the patient. No known medications Active Problems Estimated Date of Delivery Comme nts Yes 02/06/2025 Based on Ultraso und No known active problems Encounters Date Type Department Care Team Description 09/25/2024 12:37 PM CDT - 09/25/2024 11:59 PM CDT Hospital Encounter [facility] Women's Health Maternal & Care [address] [place] [address] Heather Brown MD Discharge Disposition: Home or Self Care from Last 3 Months Family History Medical History Relation Name Comments Osteoporosis Maternal Aunt Relation Name Status Comments Maternal Aunt Social History Tobacco Use Types Packs/Day Years Used Date Smoking Tobacco: Never Alcohol Use Standard Drinks/Week Comments No 0 (1 standard drink = 0.6 oz pur e alcohol) Estimated Date of Delivery Comme nts Yes 02/06/2025 Based on Ultraso und Sex and Gender Information Value Date Recorded Sex Assigned at Not on file Legal Sex Female 5:38 AM 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 Gender Identity Not on file Sexual Orientation Not on file Plan of Treatment Health Maintenance Due Date Last Done Comments HIV SCREENING 05/12/2011 DTAP/TDAP/TD VACCINES (1 - Tdap) 05/12/2015 HEPATITIS B VACCINE (1 of 3 - 19+ 3-dose series) 05/12/2015 PAP SMEAR 2017 HPV VACCINE (1 - 3-dose SCDM series) 05/12/2023 COVID-19 VACCINE ( season) 2023 12/04/2022, 12/13/2021, 12/09/2020, Additional history exists DEPRESSION SCREENING 02/29/2024 INFLUENZA VACCINE (#1) 2024 , 12/02/2020, 12/18/2019, Additional history exists OB-TDAP CURRENT 11/07/2024 03/25/2010 Respiratory Syncytial Virus (RSV) Vaccine Pt: or over 60 yrs (1 - Risk 1-dose series) 12/12/2024 ZOSTER VACCINE (1 of 2) 2046 HEPATITIS C SCREENING Completed 08/02/2024 HIB VACCINE Aged Out No longer eligi ble based on patient's age to complete this topic MENINGOCOCCAL (Group B) VACCINE SHARED DECISION-MAKING Aged Out No longer eligible based on patient's age to complete this topic MENINGOCOCCAL GROUPS A/C/Y/W VACCINE Aged Out No longer eligible based on patient's age to complete this topic PNEUMOCOCCAL VACCINE Aged Out No long er eligible based on patient's age to complete this topic Procedures Procedure Name Priority Date/Time Associated Diagnosis Comments SONOGRAM - COMPLETE Routine 09/25/2024 1 2:57 PM CDT Encounter for anatomic survey (HCC) with 20 completed weeks gestation (HCC) from Last 3 Months Results * Sonogram - Complete (09/25/2024 12:57 PM CDT) Linked Results Indication ======== anatomy evaluation Supervision of IVF 5 Day Embryo, Transfer 05/23 Maternal obesity complicating , class 1 (BMI 30.0 - 34.9) History ====== OB History 1 Lab Tests Test Date Result NIPT Low risk, Male Maternal Assessment Physical Exam Height 163 cm, 5 ft 4 in. Initial weight 81 kg, 179 lb. Initial BMI 30.73 kg/m Method ====== Transabdominal and transvaginal ultrasound. View: Sufficient ========= Shoemaker . Number of fetuses: 1 Dating ====== Date Details Gest. age BETTYE Stated BETTYE IVF Transfer, 5-day Embryo on 05/23 20 w + 4 d 02/08/2025 U/S 09/25/2024 based upon AC, BPD, Femur, HC 21 w + 1 d 02/04/2025 Assigned dating based on stated BETTYE (IVF Transfer, 5-day Embryo on 05/23), selected on 09/25/2024 20 w + 4 d 02/08/2025 General Evaluation Cardiac activity present. FHR 153 bpm. Presentation: breech Placenta: Placental site: anterior. Not low-lying Umbilical cord: Cord vessels: 3 vessel cord. Insertion site: normal insertion Amniotic fluid: Amount of AF: normal. MVP 4.7 cm Biometry BPD 50.6 mm 21w 2d 78% Hadlock HC 185.4 mm 20w 6d 56% Hadlock Cerebellum tr 21.5 mm 67% [place] Nuchal fold 2.9 mm AC 166.0 mm 21w 4d 77% Hadlock Femur 34.4 mm 20w 6d 51% Hadlock Humerus 33.1 mm 21w 1d 72% Jonny HC / AC 1.12 -/- 23% Hadlock Weight Calculation: EFW 409 g 79% Hadlock EFW (lb,oz) 0 lb 14 oz EFW by Hadlock ([id number]) Head / Face / Neck Biometry: CM 5.0 mm 44% Yosephides Growth Overview Exam date GA BPD (mm) HC (mm) AC (mm) FL (mm) HL (mm) EFW (g) 09/25/2024 20w 4d 50.6 78% 185.4 56% 166 77% 34.4 51% 33.1 72% 409 79% Anatomy The following structures appear normal: Head / Neck Cranium. Lateral ventricles. Choroid plexus. Midline falx. Cavum septi pellucidi. Cerebellum. Cisterna magna. Thalami. Nuchal fold. Face Lips. Profile. Nose. Nasal bone. Orbits. Heart / Thorax 4-chamber view. RVOT view. LVOT view. 3-vessel view. 9-qpphaa-rtmmhqf view. Situs. Aortic arch view. Bicaval view. Ductal arch view. Interventricular septum. Great vessels. Right lung. Left lung. Diaphragm. Abdomen Cord insertion. Stomach. Kidneys. Bladder. Bowel. Genitals. Spine Cervical spine. Thoracic spine. Lumbar spine. Sacral spine. Extremities / Skeleton Arms. Hands. Legs. Feet. sex: male. Maternal Structures Uterus Fibroid(s) Size 37 mm x 37 mm x 35 mm. Mean 36.3 mm. Vol 25.088 cm Cervix reassuring Approach - Transvaginal: Cervical length 4.77 cm Funneling absent Right Ovary Not visualized Appearance: Adnexa appears normal Left Ovary Normal Impression ========= 1) Shoemaker gestation, 20w4d 2) Biometry is consistent with appropriate growth using the IVF-based BETTYE of 02/08/25 3) The amniotic fluid volume is within normal limits 4) No abnormalities were detected on detailed anatomic survey 5) Transvaginal ultrasound reveals a minimum cervical length of 4.8 cm Follow-up ======== Follow-up ultrasound in ~6 weeks to reevaluate growth Coding ====== Diagnoses O09.812: Supervision of resulting from assisted reproductive technology Z36.3: Encounter for screening for malformations Procedures 43933: US Preg Uterus Detailed 20834: US Preg [facility]terus [facility] Anatom[facility] Region Laterality Modality Other 09/25/2024 12:5 7 PM CDT Jorge Luis Lisa MD [facility] ORDERABLES Edited Result - Final from Last 3 Months Insurance [facility] Care Teams Structural Engineering Drafting Officer Relationship Specialty Start Date End Date Rocael Burr MD PCP - General Family Medicine 04/24/12
--- OUTSIDE RECORDS SUMMARY | 2024-10-01 17:47 | XMS_ITS | Clinical Summary ---
Author Organization [facility] Address [address] [place] [address] Phone Care Team Providers Care Apprentice Jockey Name Role Phone Rocael Burr MD Primary Care Provider [phone] Immunizations Immunization Administration Dates Next Due (PFIZER)(12 YR UP) COVID-19 VACCINE - EMERGENCY USE AUTHORIZATION, MRNA, [id number](PF) 30 MCG/0.3 ML IM SUSP 03/12/2020,02/20/2020 Influenza [...] Health Maintenance Due Date Last Done Comments HPV VACCINES (1 - 3-dose series) 05/12/2011 DTAP/TDAP/TD VACCINES (1 - Tdap) 05/12/2015 HEPATITIS B VACCINES (1 of 3 - 19+ 3-dose series) 05/12/2015 CERVICAL CANCER SCREENING 2017 HPV/Cotest (21-29) 2017 PAP SMEAR 2017 COVID-19 Vaccine (3 - 2023-2 5 season) 2023 03/12/2020, 02/20/2020 INFLUENZA VACCINE (#1) 2024 1, 12/18/2019, 12/02/2018 Care Teams Apprentice Jockey Relationship Specialty Start Date End Date Rocael Burr MD [address] [place] [phone] PCP - General Family Practice 07/30/19
[2024-10-01 18:29] LABS: Hematocrit 34.2 % (37.0-47.0); Hemoglobin 11.0 g/dL (12.0-15.0); Mean Corpuscular HGB Conc 32.2 g/dl (32-36); Mean Corpuscular Hemoglobin 27.8 pg (26-34); Mean Corpuscular Volume 86.6 fl (80-100); Platelet Count Result 299 k/mm3 (150-375); Red Blood Count 3.95 M/mm3 (4.2-5.4); White Blood Count 11.5 K/mm3 (4.5-10.0)
[2024-10-01 18:42] LABS: Alanine Aminotransferase 20 U/L (6-35); Albumin Level 3.7 g/dL (3.5-5.1); Alkaline Phosphatase 63 U/L (38-126); Anion Gap 9 mmol/L (4-12); Aspartate Amino Transferase 27 U/L (14-36); Bilirubin,Total 0.5 mg/dL (0.2-1.3); Blood Urea Nitrogen 5 mg/dL (7-17); Calcium 9.3 mg/dL (8.4-10.2); Carbon Dioxide 20 mmol/L (22-30); Chloride 105 mmol/L (98-107); Estimated Glomerular Filt Rate > 60; Glucose 83 mg/dL (65-110); Potassium 3.4 mmol/L (3.4-5.0); Sodium 134 mmol/L (137-145); Total Protein 7.1 g/dL (6.3-8.2)
[2024-10-01 18:43] VITALS: BP 124/73; PULSE 78
[2024-10-01 18:46] VITALS: BMI 33.2
[2024-10-01 18:50] VITALS: TEMP 36.3
[2024-10-01 19:00] VITALS: BP 120/72; PULSE 74
[2024-10-01 19:21] LABS: Band Neutrophils Percent 2 % (0-6); Eosinophils Absolute Manual 0.11 K/mm3 (0.02-0.50); Eosinophils Percent Manual 1 % (0-4); Lymphocytes Absolute Manual 3.68 K/mm3 (1.1-4.5); Lymphocytes Percent Manual 32.0 % (18-44); Neutrophils Absolute Manual 7.70 K/mm3 (1.3-6.7); Neutrophils Percent Manual 65 % (46-73); Total Cells Counted 100
[2024-10-01 19:22] LABS: Schistocytes None Seen
[2024-10-01 19:30] VITALS: BP 123/81; PULSE 84
[2024-10-01 19:32] LABS: Add Urine Microscopic? NO; Appearance Urine Clear (Clear); Glucose Urine UA Negative (Negative); Leukocyte Esterase Ur Negative LEU/UL (Negative); Nitrate Urine Negative (Negative); Specific Grav Ur 1.023 (1.001-1.035)
[2024-10-01 20:00] VITALS: BP 116/71; PULSE 78
--- NOTE | 2024-10-01 20:26 | PC.NURSE ---
Dr. Velazquez responded to page, update on pt, dizziness, headache 5 out of 10, diarrhea for one week, cramping, blood pressure, and labs. Orders received to administer Tylenol 1000 mg and discharge pt with instructions to hydrate, keep next scheduled appointment, and when to return to the unit.
--- NOTE | 2024-10-01 20:30 | PC.NURSE ---
Pt denies Tylenol at this time.
--- NOTE | 2024-10-01 20:43 | OBADM ---
This patient, Nyla Beaulieu, admitted to the OB room OB Post 115 for observation. Patient/family oriented to hospital policies and general routines including ID bracelet, bed and alarms, visiting hours, pain management, procedures, bathroom and other care routines, personal items, smoking policy, room service/diet, and visiting hours. Patient/Family are encouraged to report perceived risks to care and to ask questions if they do not understand what they are told or what they should do.
--- NOTE | 2024-10-01 20:51 | PC.NURSE ---
Pt discharged with instructions to take Tylenol 1000 mg every six hours as needed, keep next scheduled appointment, and when to return to the unit, pt verbalizes understanding.
--- NOTE | 2024-10-17 10:08 | P.PNOB_ITS ---
OB - Triage/Final Diagnosis Visit Information Reason for evaluation: threatened labor Comments/Additional reasons for admission: I have assessed the risk for this patient, Nyla Beaulieu, and determined that she would benefit from observation care. Evaluation Laboratory results: Laboratory Tests 10/01/24 18:15 WBC 11.5 H RBC 3.95 L Hgb 11.0 L Hct 34.2 L MCV 86.6 MCH 27.8 MCHC 32.2 RDW 14.2 Plt Count 299 MPV 9.0 Immature Gran % (Auto) Not Reportable Neut % (Auto) Not Reportable Lymph % (Auto) Not Reportable [place] % (Auto) Not Reportable Eos % (Auto) Not Reportable Baso % (Auto) Not Reportable Lymph # (Auto) Not Reportable [place] # (Auto) Not Reportable Eos # (Auto) Not Reportable Baso # (Auto) Not Reportable Abs Immat Gran (auto) Not Reportable Absolute Neuts (auto) Not Reportable Absolute Nucleated RBC Not Reportable Total Counted 100 Neutrophils % (Manual) 65 Band Neutrophils % 2 Lymphocytes % (Manual) 32.0 Eosinophils % (Manual) 1 Nucleated RBC % Not Reportable Abs Neuts (Manual) 7.70 H Abs Lymphs (Manual) 3.68 Absolute Eos (Manual) 0.11 Platelet Estimate Adequate Schistocytes None seen Sodium 134 L Potassium 3.4 Chloride 105 Carbon Dioxide 20 L Anion Gap 9 BUN 5 L D Creatinine 0.37 L Estim Creat Clear Calc Not Reportable Estimated GFR > 60 Glucose 83 Calcium 9.3 Total Bilirubin 0.5 AST 27 ALT 20 Alkaline Phosphatase 63 Total Protein 7.1 Albumin 3.7 Urine Color Yellow Urine Appearance Clear Urine pH 6.0 Ur Specific [place] 1.023 Urine Protein Negative Urine Glucose (UA) Negative Urine Ketones Trace H Ur Blood (Man) Negative Urine Nitrate Negative Urine Bilirubin Negative Urine Urobilinogen 0.2 Leukocyte Esterase Rfl Negative
== END 2024-10-01 20:51 | disposition home or self-care (01) ==
PROVIDERS: Admitting Provider Obstetrics & Gynecology; PCP Family Medicine; Visit Provider Obstetrics & Gynecology
DX: O47.02 False labor before 37 completed weeks of gestation, second trimester (principal); Z3A.21 21 weeks gestation of pregnancy
CPT/HCPCS: 36415; 80053; 81003; 85025; G0378; G0379

== ENCOUNTER 2024-11-02 10:36 | Outpatient (CLI) | payer OTHER, SELFPAY ==
[2024-11-02] VITALS (8 sets, daily range): BP systolic 108–115; BP diastolic 67–74; PULSE 78–88; BMI 33.5
--- OUTSIDE RECORDS SUMMARY | 2024-11-02 10:52 | XMS_ITS | Clinical Summary ---
Author Organization [facility] Address [address] [place] [address] Care Team Providers Care Online Content Coordinator Name Role Phone Rocael Burr MD Primary Care Provider [phone] Allergies Active Allergy Reactions Criticality Noted Date Comments Cephalosporins Rash Medium 05/09/2012 [place] Rash Medium 05/09/2012 Nickel Rash Medium 05/09/2012 [...] Blue Team Referring Provider: Jorge Luis Dye [phone] [] or Medicare Insurance [x] Dating Criteria: [...] [] MOC: [] Method of feeding: [] Handkerchief Presser (specifically which provider): [] PP Depression Discussed: [] PP visits scheduled: Vaccines [] Flu Shot (Sep-Jan): [] COVID vaccine: [] Tdap (27-36wks): [] RSV vaccine (32-36wks): [] PP HPV vaccine counseling (<=26 yo): Maternal varicella, non-immune 08/13/2024 Overview (08/20/2024): Offer varivax [facility] Overview (08/22/2024): Imaging today confirms [...] (02/12/2021): Added automatically from request for surgery [id number] Epigastric pain 02/12/2021 Overview (02/12/2021): Added automatically from request for surgery [id number] Colitis 02/12/2021 Overview (02/12/2021): Added automatically from request for surgery [id number] Multiple food allergies 03/05/2019 Eosinophilic esophagitis 08/22/2018 Environmental allergies 02/16/2018 GERD (gastroesophageal reflux disease) 8 Food impaction of esophagus 10/03/2017 Estimated Date of Delivery Comme nts Yes 02/08/2025 Based on Day 5 E mbryo Transfer Encounters Date Type Department Care Team Description 08/22/2024 4:15 PM CDT Clinical Support [facility] Obstetrics and Gynecology [address] [place] [address] 08/22/2024 3:30 PM CDT Office Visit [facility] Medicine Maternal- Medicine [address] [place] [address] 7th Floor [address] [place] [address] resulting from assisted reproductive technology in second trimester (Primary Dx); Supervision of high-risk , second trimester; Uterine fibroids affecting in second trimester; Supervision of high-risk , unspecified trimester; Marginal insertion of umbilical cord affecting management of mother in second trimester 08/22/2024 2:42 PM CDT - 08/22/2024 11:59 PM CDT Hospital Encounter [facility] - Ultrasound [address] [place] [address], 7th Floor, [address] [place] [address] Unspecified high-risk Discharge Disposition: Discharge to home or self care 08/08/2024 Telephone [facility] Medicine Obstetrics and Gynecology [address] [place] [address] Kimber Bergeron 08/02/2024 Telephone Obstetrics and Gynecology Clinic [address] [facility] Outpatient [facility] 3rd Floor [address] [place] [address] Linda Belle RN 08/02/2024 Telephone Obstetrics and Gynecology Clinic [address] [facility] Outpatient [facility] 3rd Floor [address] [place] [address] Milyl Lepe LPN from Last 3 Months Immunizations Immunization Administration [...] Sex Assigned at Female 05/02/2018 8:22 AM 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 DISTRICT 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 Legal Sex Female 2:25 AM MAGISTERIAL DISTRICT JUDGE Gender Identity Female 05/02/2018 8:22 AM MAGISTERIAL DISTRICT JUDGE Sexual Orientation Straight 05/02/2018 8: 22 AM MAGISTERIAL DISTRICT JUDGE Obstetrics History Para Term AB IAB SAB Ectopic Multiple Livin g Live Births 1 0 0 0 0 0 0 0 0 0 0 Date Outcome GA Total Labor Labor/2nd/3rd Weight Sex Type Anes PTL Tamara A1 A5 Name Clin Current Summary Episode Dates Number of Fetuses Estimated Date of Delivery 08/13/2024 - Present (11/02/2024) 02/08/2025 (set by Amanda Ames MD on 08/22/2024 based on Day 5 Embryo Transfer on 05/23/2024) Dating Summary Based On BETTYE GA Diff Ultrasound on 07/30/2024 02/06/2025 +2d GA:12w5d Ultrasound on 06/22/2024 02/08/2025 Same GA:7w0d Day 5 Embryo Transfer on 05/23/2024 02/08/2025 Working Vitals Pregravid Weight Height TWG (As of 11/02/2024) Pregrav id BMI 160 cm (5' 3) [...] muscular dystrophy. Allergies Allergen Reactions Cephalosporins Rash [place] Rash Nickel Rash Social History Tobacco Use [...] cm is noted. Theadnexa appeared normal bilaterally. Result Sita Dye MD IMG OB US PROCEDURES Final Result * HIV 1/2 Antibody plus p24 Antigen Blood (08/02/2024) SCRIBED HIV P24 Nonreactive Nonreactive , Invalid Blood Result [facility] us Jorge Luis Dye MD LAB MICROBIOLOGY - GENERAL ORDERABLES Final Result * Hepatitis C antibody Blood (08/02/2024) SCRIBED HCV ab non Blood Result [facility] us Jorge Luis Dye MD LAB MICROBIOLOGY - GENERAL ORDERABLES Final Result * ABO/Rh (08/02/2024) SCRIBED ABO/Rh A+ Blood Result Sita Dye MD LAB BLOOD BANK TEST ORDERAB [...] Result * CBC without differential (08/02/2024) Pathologist [facility] Hct 36.0 Hgb 11.8 Plt 344 Blood us Jorge Luis Dye MD LAB BLOOD ORDERABLES Final Result * Antibody screen (08/02/2024) SCRIBED Indirect Antiglobulin negative Blood us Jorge Luis Dye MD LAB BLOOD BANK TEST ORDERAB LES Final Result * Urine culture (08/02/2024) SCRIBED Urine culture negative Result Sita Dye MD LAB MICROBIOLOGY - GENERAL ORDERABLES Final Result * Varicella Zoster IgG antibody Blood (08/02/2024) SCRIBED Varicella Zoster, IgG Negative Blood us Jorge Luis Dye MD LAB MICROBIOLOGY - GENERAL ORDERABLES Final Result * TSH (08/02/2024) Scribed TSH 1.55 mcU/mL Blood Jorge Luis Dye MD LAB BLOOD ORDERABLES Final Result from Last 3 Months Insurance [facility] [employer] Address: [place] [id number] [place] [id number] Member Subscriber Plan / Payer (Ef fective 2021-) Name:Nyla Beaulieu Member ID:[id number] Relation to Subscriber:Self Name:Nyla Beaulieu Subscriber ID:[id number] Payer ID:[id number] (NAIC) Type:[facility] Address: [facility] [id number] [employer] [facility] H[employer]/PPO Address: [facility] [address] [place] [id number] [facility] [employer] [facility] H[employer]/PPO Address: [address] [address] Advance Directives For more information, please contact: [phone] * Full Code (Latest Code Status on File) Date Activated Date Inactivated Comments 05/18/2024 6:33 AM 05/19/2024 5:00 AM * Full Code Date Activated Date Inactivated Comments 03/08/2018 7:36 AM 03/08/2018 12:14 PM * Full Code Date Activated Date Inactivated Comments 10/03/2017 11:55 PM 10/04/2017 5:29 AM Care Teams Online Content Coordinator Relationship Specialty Start Date End Date Rocael Burr MD [address] [place] [address] PCP - General Family Medicine 02/16/18
--- OUTSIDE RECORDS SUMMARY | 2024-11-02 10:52 | XMS_ITS | Clinical Summary ---
Author Organization [facility] Address [address] [facility] [address] Care Team Providers Care Home Health Travel Ot Name Role Phone Rocael Burr MD Primary Care Provider [phone] Source Comments [facility],non-owned Affiliates and Associated Physician Practices is amultiple site organization consisting of ambulatory clinics and hospital sitesin [place], [place], [place] and [place]. This disclosure is being madepursuant to the Care Everywhere program and may not contain all information available regarding this patient. Last updated 17.[facility] Allergies Active Allergy Reactions Criticality Noted Date Comments Cephalosporins Rash Low 05/09/2012 Gilboa Rash Low 05/09/2012 Nickel Rash Low 05/09/2012 Medications * Be aware that medications may not be up to date on this document. Alwaysverify current medications with the patient. No known medications Active Problems Estimated Date of Delivery Comme nts Yes 02/06/2025 Based on Ultraso und No known active problems Encounters Date Type Department Care Team Description 10/31/2024 Telephone [facility] [place] [address] [place] [address] Netta Swain Appointment 10/23/2024 Telephone [facility] Women's Health Maternal & Care [address] [place] [address] 97[address] Kelly Schultz RN Order (Called patient to let her know echocardiogram order received from Dr. Dye's office and someone from [facility] will reach out to get her scheduled. Patient works in [facility] and would prefer that location if that is an option. 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 Gender Identity Not on file Sexual Orientation Not on file Plan of Treatment Upcoming Encounters Date Type Department Care Team (Late st Contact Info) Description 11/09/2024 3:15 PM CDT Hospital Encounter [facility] Maternal & Care [address] [place] [address] 11/21/2024 9:00 AM CDT Appointment [facility] [place] [address] [place] [address] Jorge Luis Lim MD [address] [facility] [address] [place] [address] 11/21/2024 9:00 AM CDT Appointment [facility] [place] [address] [place] [address] Health Maintenance Due Date Last Done Comments HIV SCREENING 05/12/2011 DTAP/TDAP/TD VACCINES (1 - Tdap) 05/12/2015 HEPATITIS B VACCINE (1 of 3 - 19+ 3-dose series) 05/12/2015 PAP SMEAR 2017 HPV VACCINE (1 - 3-dose SCDM series) 05/12/2023 DEPRESSION SCREENING 02/29/2024 COVID-19 VACCINE ( - 2024- season) 2024 12/04/2022, 12/13/2021, 12/09/2020, Additional history exists INFLUENZA VACCINE (#1) 2024 , 12/02/2020, 12/18/2019, Additional history exists OB-ONE HOUR GLUCOSE 10/31/2024 OB-TDAP CURRENT 11/07/2024 03/25/2010 OB-RHOGAM INJECTION 11/14/2024 Respiratory Syncytial Virus (RSV) Vaccine Pt: or [...] 0 lb 14 oz EFW by Hadlock ([id number]) Head / Face / Neck Biometry: CM 5.0 mm 44% Nicolaides Growth Overview Exam date GA BPD (mm) [...] view. RVOT view. LVOT view. 3-vessel view. 6-oyipxi-rctwpqi view. Situs. Aortic arch view. Bicaval view. [...] Z36.3: Encounter for screening for malformations Procedures 91834: US Preg Uterus Detailed 16197: US Preg Uterus Transvaginal Xendex HoldingS Anatomical Region Laterality Modality Other 09/25/2024 12:5 7 PM CDT Jorge Luis Lisa MD MFA[facility]ika ORDERABLES Edited Result - Final from Last 3 Months Insurance [facility] Care Teams Home Health Travel Ot Relationship Specialty Start Date End Date Rocael Burr MD PCP - General Family Medicine 04/24/12
--- OUTSIDE RECORDS SUMMARY | 2024-11-02 10:52 | XMS_ITS | Clinical Summary ---
Author Organization [facility] Address [address] [place] [phone] Phone Care Team Providers Care Furnace Room Supervisor Name Role Phone Rocael Burr MD Primary Care Provider [phone] Immunizations Immunization Administration Dates Next Due (PFIZER)(12 YR UP) COVID-19 VACCINE - EMERGENCY USE AUTHORIZATION, MRNA, [id number](PF) 30 MCG/0.3 ML IM SUSP 03/12/2020,02/20/2020 Influenza [...] 2017 HPV/Cotest (21-29) 2017 PAP SMEAR 2017 HPV VACCINES (1 - 3-dose SCD M series) 05/12/2023 INFLUENZA VACCINE (#1) 2024 , 12/18/2019, 12/02/2018 COVID-19 Vaccine (3 - 2024-2 6 season) 2024 03/12/2020, 02/20/2020 Care Teams Furnace Room Supervisor Relationship Specialty Start Date End Date Rocael Burr MD [address] [place] [address] PCP - General Family Practice 07/30/19
--- OUTSIDE RECORDS SUMMARY | 2024-11-02 10:52 | XMS_ITS | Encounter Summary ---
Author Organization [facility] Address [address] [facility] [place] [address] Care Team Providers Care Public Relations Officer Name Role Phone Rocael Burr MD Primary Care Provider [phone] Reason for Referral * Cardiac (Routine) - Open Specialty Diagnoses / Procedures Referred By Contac t Referred To Contact Cardiology Diagnoses 24 weeks gestation of (HCC) Procedures ECHO - CUPID SC DOPPLER ECHO PULSED WAVE &/CONT WAVE; CMPL SC DOPPLER ECHO PULSE WAVE&/CONT WAVE; REPEAT Jorge Luis Lim MD [address] [facility] [address] [place] [address] Phone: tel: fax: [facility] at [address] [address] Phone: tel: fax: Referral ID Status Reason Start Date Expiration Date Visits Re quested Visits Authorized [id number] Open 10/23/2024 10/23/2025 1 1 Encounter Details Date Type Department Care Team (Late st Contact Info) Description 10/23/2024 Orders Only [facility] Maternal & Care [address] [place] [address] Kelly Schultz RN resulting from in vitro fertilization in second trimester (HCC) ; 24 weeks gestation of (HCC) Social History Tobacco Use Types Packs/Day Years Used Date Smoking Tobacco: Never Alcohol Use Standard Drinks/Week Comments No 0 (1 standard drink = 0.6 oz pur e alcohol) Estimated Date of Delivery Comme nts Yes 02/06/2025 Based on Ultraso und Sex and Gender Information Value Date Recorded Sex Assigned at Not on file 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 Gender Identity Not on file Sexual Orientation Not on file documented as of this encounter Plan of Treatment Upcoming Encounters Date Type Department Care Team (Late st Contact Info) Description 11/09/2024 3:15 PM CDT Hospital Encounter [facility] Maternal & Care [address] [place] [address] 11/21/2024 9:00 AM CDT Appointment [facility] [address] [place] [address] Jorge Luis Lim MD [address] [facility] [address] [facility] [address] [place] [address] 11/21/2024 9:00 AM CDT Appointment [address] [address] Scheduled Orders Name Type Priority Associated Diagnoses Order Schedule ECHO - CUPID Echocardiography Cupid Routine 24 weeks gestation of (HCC) 1 Occurrences starting 10/23/2024 until 10/23/2025 documented as of this encounter Visit Diagnoses Diagnosis resulting from in vitro fertilization in second trimester (HCC)- Primary 24 weeks gestation of (HCC) state, incidental resulting from in vitro fertilization in second trimester (HCC)- Primary 27 weeks gestation of (HCC) state, incidental Encounter for ultrasound to assess growth (HCC) documented in this encounter Care Teams Public Relations Officer Relationship Specialty Start Date End Date Rocael Burr MD PCP - General Family Medicine 04/24/12 documented as of this encounter
[2024-11-02 11:15] LABS: Hematocrit 33.5 % (37.0-47.0); Hemoglobin 10.6 g/dL (12.0-15.0); Immature Granulocyte Percent A 0.4 % (0-0.5); Lymphocytes Absolute Auto 2.11 K/mm3 (0.9-3.2); Mean Corpuscular HGB Conc 31.6 g/dl (32-36); Mean Corpuscular Hemoglobin 28.0 pg (26-34); Mean Corpuscular Volume 88.6 fl (80-100); Nucleated Red Blood Cells Absolute Auto 0.000 K/mm3 (0.0-0.012); Nucleated Red Blood Cells Perc 0.0 % (0.0-0.2); Platelet Count Result 320 k/mm3 (150-375); Red Blood Count 3.78 M/mm3 (4.2-5.4); White Blood Count 11.2 K/mm3 (4.5-10.0)
[2024-11-02 11:32] LABS: Alanine Aminotransferase 13 U/L (6-35); Albumin Level 3.8 g/dL (3.5-5.1); Alkaline Phosphatase 69 U/L (38-126); Anion Gap 7 mmol/L (4-12); Aspartate Amino Transferase 28 U/L (14-36); Bilirubin,Total 0.6 mg/dL (0.2-1.3); Blood Urea Nitrogen 5 mg/dL (7-17); Calcium 8.9 mg/dL (8.4-10.2); Carbon Dioxide 22 mmol/L (22-30); Chloride 104 mmol/L (98-107); Estimated Glomerular Filt Rate > 60; Glucose 98 mg/dL (65-110); Potassium 4.1 mmol/L (3.4-5.0); Sodium 133 mmol/L (137-145); Total Protein 7.2 g/dL (6.3-8.2); Uric Acid 2.7 mg/dL (2.5-7.5)
[2024-11-02 11:36] LABS: Add Urine Microscopic? YES; Appearance Urine Clear (Clear); Glucose Urine UA Negative (Negative); Leukocyte Esterase Ur Negative LEU/UL (Negative); Nitrate Urine Negative (Negative); Specific Grav Ur 1.025 (1.001-1.035)
--- NOTE | 2024-11-02 11:39 | OBADM ---
This patient, Nyla Beaulieu, admitted to the OB room OB Post 117 for observation. Patient/family oriented to hospital policies and general routines including ID bracelet, bed and alarms, visiting hours, pain management, procedures, bathroom and other care routines, personal items, smoking policy, room service/diet, and visiting hours. Patient/Family are encouraged to report perceived risks to care and to ask questions if they do not understand what they are told or what they should do.
[2024-11-02 11:40] LABS: Total Protein Urine Random 12 mg/dL; Ur Ttl Prot Creatinine Ratio 0.05 mg/mg (0-0.20)
== END 2024-11-02 13:17 | disposition home or self-care (01) ==
LOC: ANHOBOP 10:39 → ANHOBPP 10:39
PROVIDERS: PCP Family Medicine; Visit Provider Obstetrics & Gynecology
DX: O13.9 Gestational [pregnancy-induced] hypertension without significant proteinuria, unspecified trimester (principal); Z3A.00 Weeks of gestation of pregnancy not specified
CPT/HCPCS: 36415; 80053; 81001; 82570; 84156; 84550; 85025; 99199

== ENCOUNTER 2024-11-20 15:46 | Outpatient (CLI) | payer OTHER, SELFPAY ==
--- OUTSIDE RECORDS SUMMARY | 2024-11-20 15:50 | XMS_ITS | Clinical Summary ---
Author Organization [facility] Address [address] [place] [phone] Phone Care Team Providers Care Cold Rolling Supervisor Name Role Phone Rocael Burr MD Primary Care Provider Immunizations Immunization Administration Dates Next Due (PFIZER)(12 YR UP) COVID-19 VACCINE - EMERGENCY USE AUTHORIZATION, MRNA, [id number](PF) 30 MCG/0.3 ML IM SUSP 03/12/2020,02/20/2020 Influenza [...] 6 season) 2024 03/12/2020, 02/20/2020 Care Teams Cold Rolling Supervisor Relationship Specialty Start Date End Date Rocael Burr MD [address] [place] [address] PCP - General Family Practice 07/30/19
--- OUTSIDE RECORDS SUMMARY | 2024-11-20 15:50 | XMS_ITS | Clinical Summary ---
Author Organization [facility] Address [address] [place] [address] Care Team Providers Care Surface Supply Breathing Apparatus Name Role Phone Rocael Burr MD Primary Care Provider [phone] Allergies Active Allergy Reactions Criticality Noted Date Comments Cephalosporins Rash Medium 05/09/2012 [place] Rash Medium 05/09/2012 Nickel Rash Medium 05/09/2012 [...] Blue Team Referring Provider: Jorge Luis Dye [phone] [] or Medicare Insurance [x] Dating Criteria: [...] [] MOC: [] Method of feeding: [] Maritime Pilot (specifically which provider): [] PP Depression Discussed: [] PP visits scheduled: Vaccines [] Flu Shot (Sep-Jan): [] COVID vaccine: [] Tdap (27-36wks): [] RSV vaccine (32-36wks): [] PP HPV vaccine counseling (<=26 yo): Maternal varicella, non-immune 08/13/2024 Overview (08/20/2024): Offer varivax [facility]ine [facility] 08/13/2024 Overview (08/22/2024): Imaging today confirms a [...] (02/12/2021): Added automatically from request for surgery [id number] Epigastric pain 02/12/2021 Overview (02/12/2021): Added automatically from request for surgery [id number] Colitis 02/12/2021 Overview (02/12/2021): Added automatically from request for surgery [id number] Multiple food allergies 03/05/2019 Eosinophilic esophagitis 08/22/2018 Environmental allergies 02/16/2018 GERD (gastroesophageal reflux disease) 8 Food impaction of esophagus 10/03/2017 Estimated Date of Delivery Comme nts Yes 02/08/2025 Based on Day 5 E mbryo Transfer Encounters Date Type Department Care Team Description 08/22/2024 4:15 PM CDT Clinical Support [facility] Medicine Obstetrics and Gynecology [address] [place] [address] [address] [place] [address] 08/22/2024 3:30 PM CDT Office Visit [facility] Medicine Maternal- Medicine [address] [place] [address] 7th [address] [place] [address] resulting from assisted reproductive technology in second trimester (Primary Dx); Supervision of high-risk , second trimester; Uterine fibroids affecting in second trimester; Supervision of high-risk , unspecified trimester; Marginal insertion of umbilical cord affecting management of mother in second trimester 08/22/2024 2:42 PM CDT - 08/22/2024 11:59 PM CDT Hospital Encounter [facility] Outpatient [facility] - Ultrasound [address] [place] [address], 7th Floor, [address] [place] [address] Unspecified high-risk Discharge Disposition: Discharge to home or self care from Last 3 Months Immunizations Immunization Administration [...] Sex Assigned at Female 05/02/2018 8:22 AM PRECISION LENS GENERATOR Legal Sex Female 2:25 AM PRECISION LENS GENERATOR Gender Identity Female 05/02/2018 8:22 AM PRECISION LENS GENERATOR Sexual Orientation Straight 05/02/2018 8: 22 AM PRECISION LENS GENERATOR Obstetrics History Para Term AB IAB SAB Ectopic Multiple Livin g Live Births 1 0 0 0 0 0 0 0 0 0 0 Date Outcome GA Total Labor Labor/2nd/3rd Weight Sex Type Anes PTL Tamara A1 A5 Name Clin Current Summary Episode Dates Number of Fetuses Estimated Date of Delivery 08/13/2024 - Present (11/20/2024) 02/08/2025 (set by Amanda Ames MD on 08/22/2024 based on Day 5 Embryo Transfer on 05/23/2024) Dating Summary Based On BETTYE GA Diff Ultrasound on 07/30/2024 02/06/2025 +2d GA:12w5d Ultrasound on 06/22/2024 02/08/2025 Same GA:7w0d Day 5 Embryo Transfer on 05/23/2024 02/08/2025 Working Vitals Pregravid Weight Height TWG (As of 11/20/2024) Pregrav id BMI 160 cm (5' 3) [...] muscular dystrophy. Allergies Allergen Reactions Cephalosporins Rash [place] Rash Nickel Rash Social History Tobacco Use [...] - 3-dose SCDM series) 05/12/2023 Covid-19 Vaccine (3 - season) 2024 03/12/2020, 02/20/2020 Influenza Vaccine (#1) 2024 , [...] Routine) 08/22/2024 2:42 PM CDT Unspecified high-risk HEPATITIS C ANTIBODY Routine 08/02/2024 from Last 3 Months or Most Recently Relevant to Health Maintenance Results * US Ob Limited (08/22/2024 2:42 [...] IMG OB US PROCEDURES Final Result * Hepatitis C antibody Blood (08/02/2024) SCRIBED HCV ab non Blood Jorge Luis Dye MD LAB MICROBIOLOGY - GENERAL ORDERABLES Final Result from Last 3 Months or Most Recently Relevant to Health Maintenance Insurance [facility] [employer] [facility] H[employer]/PPO Address: [address] [address] [place] [address] [employer] Member Subscriber Plan / Payer (Ef fective 2021-) Name:MaureenjodiSyedNyla Kenia Member ID:[id number] Relation to Subscriber:Self Name:Nyla Beaulieu Subscriber ID:[id number] Payer ID:[id number] (NAIC) Type:[facility] Address: [facility] [id number] [employer] [facility] HMO/PPO Address: [address] [address] [place] [address] [facility] [employer] [facility] HMO/PPO Address: [facility] [address] [place] [address] Advance Directives For more information, please contact: [phone] * Full Code (Latest Code Status on File) Date Activated Date Inactivated Comments 05/18/2024 6:33 AM 05/19/2024 5:00 AM * Full Code Date Activated Date Inactivated Comments 03/08/2018 7:36 AM 03/08/2018 12:14 PM * Full Code Date Activated Date Inactivated Comments 10/03/2017 11:55 PM 10/04/2017 5:29 AM Care Teams Surface Supply Breathing Apparatus Relationship Specialty Start Date End Date Rocael Burr MD [address] [place] [address] PCP - General Family Medicine 02/16/18
--- OUTSIDE RECORDS SUMMARY | 2024-11-20 15:50 | XMS_ITS | Clinical Summary ---
Author Organization [facility] Address [address] [place] [place] [address] Care Team Providers Care Para Machine Operator Name Role Phone Rocael Burr MD Primary Care Provider [phone] Source Comments [facility],non-owned Affiliates and Associated Physician Practices is amultiple site organization consisting of ambulatory clinics and hospital sitesin [place], [place], [place] and [place]. This disclosure is being madepursuant to the Care Everywhere program and may not contain all information available regarding this patient. Last updated 17.[facility] Allergies Active Allergy Reactions Criticality Noted Date Comments Cephalosporins Rash Low 05/09/2012 Kermit Rash Low 05/09/2012 Nickel Rash Low 05/09/2012 Medications * Be aware that medications may not be up to date on this document. Alwaysverify current medications with the patient. No known medications Active Problems Estimated Date of Delivery Comme nts Yes 02/06/2025 Based on Ultraso und No known active problems Encounters Date Type Department Care Team Description 11/09/2024 2:59 PM CDT - 11/09/2024 11:59 PM CDT Hospital Encounter [facility] Women's Health Maternal & Care [address] [place] [address] Gavin Kang MD [facility] Discharge Disposition: Home or Self Care 10/31/[address] [address] Netta Swain Appointment 10/23/2024 Telephone [facility] Maternal & Care [address] [place] [phone] Kelly Schultz RN Order (Called patient to let her know echocardiogram order received from Dr. Dye's office and someone from [facility] will reach out to get her scheduled. Patient works in [facility] [employer] and would prefer that location if that is an option. 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 Gender Identity Not on file Sexual Orientation Not on file Plan of Treatment Upcoming Encounters Date Type Department Care Team (Late st Contact Info) Description 11/21/2024 9:00 AM CDT Appointment [address] [address] Jorge Luis Lim MD [address] [facility] [address] [place], [place] [id number] 11/21/2024 9:00 AM CDT Appointment [facility] [place] [address] [place] [address] Health Maintenance Due Date Last Done Comments HIV SCREENING 05/12/2011 DTAP/TDAP/TD VACCINES (1 - Tdap) 05/12/2015 HEPATITIS B VACCINE (1 of 3 - 19+ 3-dose series) 05/12/2015 PAP SMEAR 2017 HPV VACCINE (1 - 3-dose SCDM series) 05/12/2023 DEPRESSION SCREENING 02/29/2024 COVID-19 VACCINE (2024- season) 2024 12/04/2022, 12/13/2021, 12/09/2020, Additional history exists INFLUENZA VACCINE (#1) 2024 , 12/10/2021, 12/02/2020, Additional history exists OB-ONE HOUR GLUCOSE 10/31/2024 [...] Associated Diagnosis Comments SONOGRAM - COMPLETE Routine 11/09/2024 3:00 PM CDT resulting from in vitro fertilization in second trimester (HCC) 27 weeks gestation of (HCC) Encounter for ultrasound to assess growth ([facility]) SONOGRAM - COMPLETE Routine 09/25/2024 12:57 PM CDT Encounter for anatomic survey (HCC) with 20 completed weeks gestation (HCC) from Last 3 Months Results * Sonogram - Complete (11/09/2024 3:00 PM CDT) Only the most recent of2 resultswithin the time period is included. Linked Results Indication ======== Supervision of IVF Maternal obesity complicating , class 1 (BMI 30.0 - 34.9) Uterine fibroids in History ====== OB History 1 Lab Tests Test Date Result NIPT Low risk, Male Maternal Assessment Physical Exam Height 163 cm, 5 ft 4 in. Weight 87 kg, 191 lb. Initial weight 81 kg, 179 lb. BMI 32.79 kg/m . Initial BMI 30.73 kg/m . Weight gain 5 kg, 12 lb Method ====== Transabdominal ultrasound. View: Sufficient ========= Shoemaker . Number of fetuses: 1 Dating ====== Date Details Gest. age BETTYE Stated BETTYE IVF Transfer, 5-day Embryo on 05/23 27 w + 0 d 02/08/2025 U/S 11/09/2024 based upon AC, BPD, Femur, HC 28 w + 2 d 01/30/2025 Assigned dating based on stated BETTYE (IVF Transfer, 5-day Embryo on 05/23), selected on 09/25/2024 27 w + 0 d 02/08/2025 General Evaluation Cardiac activity present. FHR 146 bpm. Presentation: cephalic Placenta: Placental site: anterior Amniotic fluid: Amount of AF: normal. MVP 6.2 cm Biometry BPD 70.8 mm 28w 3d 83% Hadlock HC 264.3 mm 28w 5d 79% Hadlock AC 256.6 mm 29w 6d 98% Hadlock Femur 48.4 mm 26w 2d 16% Hadlock Humerus 43.7 mm 26w 0d 17% Jonny HC / AC 1.03 Weight Calculation: EFW 1,231 g 90% Hadlock EFW (lb,oz) 2 lb 11 oz EFW by Hadlock ([id number]) LGA Growth Overview Exam date GA BPD (mm) HC (mm) AC (mm) FL (mm) HL (mm) EFW (g) 09/25/2024 20w 4d 50.6 78% 185.4 56% 166 77% 34.4 51% 33.1 72% 409 79% 11/09/2024 27w 0d 70.8 83% 264.3 79% 256.6 98% 48.4 16% 43.7 17% 1231 90% Anatomy The following structures appear normal: Abdomen Stomach. Kidneys. Bladder. sex: male. Maternal Structures Uterus Fibroid(s) Size 44 mm x 38 mm x 36 mm. Mean 39.3 mm. Vol 31.516 cm . Right anterior wall Impression ========= Single, live, intrauterine at 27w 0d The size is LGA. The amniotic fluid volume is normal. No major malformations were seen within the limits of ultrasound. Comment ======== ultrasound alone cannot detect all structural, genetic, or functional , placental, or maternal abnormalities Follow-up ======== Follow up ultrasound in 4 weeks for growth assessment. Correlate growth with materna glucose screening. echo scheduled on 11/21/24, ordered by primary OB physician. Coding ====== Diagnoses O09.812: Supervision of resulting from assisted reproductive technology Z36.3: Encounter for screening for malformations Procedures 51832: US Preg Uterus Follow Up [facility] PACS Anatomical Region Laterality Modality Other 11/09/2024 3:00 PM CDT us Jorge Luis Lisa MD [facility] ORDERABLES Edited Result - Final from Last 3 Months Insurance [facility] Care Teams Para Machine Operator Relationship Specialty Start Date End Date Rocael Burr MD PCP - General Family Medicine 04/24/12
--- NOTE | 2024-11-20 16:01 | ECG_ITS ---
Test Date: 2024-11-20 16:14:22 Measurements Intervals [place] Rate: 75 P: -2 PA: 138 QRS: 51 QRSD: 88 T: 11 QT: 357 QTc: 400 Interpretive Statements SINUS RHYTHM No previous ECG available for comparison Electronically Signed On 11-20-2024 17:14:47 CDT by Tania Fernandez M.D.
== END 2024-11-20 15:47 | disposition home or self-care (01) ==
LOC: ANHCARD 15:48
PROVIDERS: PCP Family Medicine; Visit Provider Obstetrics & Gynecology
DX: Z34.90 Encounter for supervision of normal pregnancy, unspecified, unspecified trimester (principal); R00.2 Palpitations; Z3A.00 Weeks of gestation of pregnancy not specified
CPT/HCPCS: 93005

== ENCOUNTER 2024-12-04 10:38 | Outpatient (CLI) | payer OTHER, SELFPAY ==
[2024-12-04 11:00] LABS: Hematocrit 34.5 % (37.0-47.0); Hemoglobin 10.7 g/dL (12.0-15.0); Mean Corpuscular HGB Conc 31.0 g/dl (32-36); Mean Corpuscular Hemoglobin 27.6 pg (26-34); Mean Corpuscular Volume 88.9 fl (80-100); Platelet Count Result 281 k/mm3 (150-375); Red Blood Count 3.88 M/mm3 (4.2-5.4); White Blood Count 10.4 K/mm3 (4.5-10.0)
[2024-12-04 11:25] LABS: Alanine Aminotransferase 13 U/L (6-35); Albumin Level 3.5 g/dL (3.5-5.1); Alkaline Phosphatase 78 U/L (38-126); Anion Gap 7 mmol/L (4-12); Aspartate Amino Transferase 24 U/L (14-36); Bilirubin,Total 0.7 mg/dL (0.2-1.3); Blood Urea Nitrogen 4 mg/dL (7-17); Calcium 8.9 mg/dL (8.4-10.2); Carbon Dioxide 22 mmol/L (22-30); Chloride 106 mmol/L (98-107); Estimated Glomerular Filt Rate > 60; Glucose 90 mg/dL (65-110); Potassium 4.0 mmol/L (3.4-5.0); Sodium 135 mmol/L (137-145); Total Protein 6.8 g/dL (6.3-8.2)
--- OUTSIDE RECORDS SUMMARY | 2024-12-04 11:39 | XMS_ITS | Clinical Summary ---
Author Organization [facility] Address [address] [place] [address] Care Team Providers Care Stab Setter And Driller Name Role Phone Rocael Burr MD Primary Care Provider [phone] [facility],non-owned Affiliates and Associated Physician Practices is amultiple site organization consisting of ambulatory clinics and hospital sitesin [place], [place], [place] and [place]. This disclosure is being madepursuant to the Care Everywhere program and may not contain all information available regarding this patient. Last updated 17.[facility] Allergies Active Allergy Reactions Criticality Noted Date Comments Cephalosporins Rash Low 05/09/2012 [place] Rash Low 05/09/2012 Nickel Rash Low 05/09/2012 Medications * Be aware that medications may not be up to date on this document. Alwaysverify current medications with the patient. No known medications Active Problems Estimated Date of Delivery Comme nts Yes 02/06/2025 Based on Ultraso und No known active problems Encounters Date Type Department Care Team Description 11/21/2024 9:00 AM CDT Hospital Encounter [facility] [address] [place] [address] [phone] Nereida Galicia MD 11/21/2024 9:00 AM CDT Hospital Encounter [facility] [address] [place] [address] [phone] Jorge Luis Lim MD Discharge Disposition: Home or Self Care 11/21/2024 Travel 11/09/2024 2:59 PM CDT - 11/09/2024 11:59 PM CDT Hospital Encounter [facility] [address] [place] [address] [phone] Gavin Kang MD INSURANCE ACCOUNT MANAGER Discharge Disposition: Home or Self Care 10/31/2024 Telephone [facility] [address] [place] [address] [phone] Netta Swain Appointment 10/23/2024 Telephone [facility] [address] [place] [address] [phone] Kelly Schultz RN Order (Called patient to let her know echocardiogram order received from Dr. Dye's office and someone from [facility] will reach out to get her scheduled. Patient works in [facility] and would prefer that location if that is an option. 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 [address] [phone] Health Maintenance Due Date Last Done Comments HIV SCREENING 05/12/2011 DTAP/TDAP/TD VACCINES (1 - Tdap) 05/12/2015 HEPATITIS B VACCINE (1 of 3 - 19+ 3-dose series) 05/12/2015 PAP SMEAR 2017 HPV VACCINE (1 - 3-dose SCDM series) 05/12/2023 DEPRESSION SCREENING 02/29/2024 COVID-19 VACCINE ( season) 2024 12/04/2022, 12/13/2021, 12/09/2020, Additional history [...] Procedure Name Priority Date/Time Associated Diagnosis Comments ECHO COMPLETE CG Routine 11/21/2024 9:51 AM CDT 24 weeks gestation of (HCC) SONOGRAM - COMPLETE Routine 11/09/2024 3:00 PM CDT resulting from in vitro fertilization in second trimester (HCC) 27 weeks gestation of (HCC) Encounter for ultrasound to assess growth (HCC) SONOGRAM - COMPLETE Routine 09/25/2024 12:57 PM CDT Encounter for anatomic survey (HCC) with 20 completed weeks gestation (HCC) from Last 3 Months Results * ECHO COMPLETE CG (11/21/2024 9:51 AM CDT) MV E pk angela 24.25 cm/s [facility] CV F UJI PACS MV A pk angela 43.54 cm/s [facility] CV F UJI PACS Anatomical Region Laterality Modality Ultrasound 11/21/2024 9:09 AM CDT Narrative 11/21/2024 10:00 AM CDT Name: Nyla Beaulieu Patient Exam Info Gender: Female Patient Status: O/P : 1995 Admit Date: 11/21/2024 Exam Date/Time: 11/21/2024 9:09 AM Site: [facility] Current Location: [facility] EStaffOrdering Provider: Jorge Luis Lisa Interpreting Physician: Nereida Galicia MD Director Craft Center: Sigifredo Hargrove PEÑA Study Info Procedure: ECHO COMPLETE CG Indications: Z3A.24 - 24 weeks gestation of (HCC) Maternal Gestational Status GA by EDC: 28 wks , 5 days EDC: 02/08/2025 Type: Shoemaker Age: 29 yrs Lie: Vertex Summary * The echocardiogram was within normal limits. * Small atrial and ventricular septal defects and persistent ductus arteriosus cannot be excluded as findings. Anatomic Relationships Left sided cardiac apex (levocardia). There is normal visceral-cardiac situs, and normal segmental cardiac anatomical relationship. Systemic Veins There is normal systemic venous return. Pulmonary Veins The visualized pulmonary veins drain normally to the left atrium. Right Atrium The right atrial size is normal. Left Atrium The left atrial size is normal. Atrial Septum Patent foramen ovale with open foramen flap. Color flow is right to left. Right Ventricle The right ventricular cavity size is normal. The right ventricular wall thickness is normal. The right ventricular systolic function is normal. RV Outflow Tract The right ventricular outflow tract is normal. Left Ventricle The left ventricular cavity size is normal. The left ventricular wall thickness is normal. The left ventricular systolic function is normal. Ventricular Septum There is no ventricular septal defect with no shunting. LV Outflow Tract The left ventricular outflow tract is normal. Tricuspid Valve The tricuspid valve is structurally normal. The tricuspid inflow pattern is normal. Tricuspid velocity is within the normal range. There is no tricuspid regurgitation. Mitral Valve The mitral valve is structurally normal. The mitral inflow pattern is normal. Mitral velocity is within the normal range. There is no mitral regurgitation. Aorta aortic arch visualized and is without obstruction by 2D, color flow and Doppler. Pulmonary Arteries The main pulmonary artery is normal, with confluent branch pulmonary arteries. Ductus Arteriosus The antegrade flow velocity and pattern in the ductal arch is normal. A normal ductus arteriosus is appreciated. Doppler Flow in the ductus venosus is normal. The umbilical vein flow pattern is normal. The umbilical artery flow pattern is normal. Hydrops Assessment No pericardial effusion. No ascites present. No pleural effusion(s). Rhythm The rhythm is normal. There is 1:1 AV conduction. Pulmonary Valve The pulmonic valve is normal-sized. The transpulmonic velocity is within normal range. There is no pulmonic regurgitation. Aortic Valve The aortic valve is normal-sized. The transaortic velocity is within normal range. There is no aortic regurgitation. Doppler Measurements (Fetus A) Atrioventricular Valves Name Value Normal Z-Score Percentile Atrioventricular Valves Doppler TV E Peak Velocity 0.4 m/s TV A Peak Velocity 0.6 m/s MV E Peak Velocity 0.2 m/s MV A Peak Velocity 0.4 m/s (Fetus A) Semilunar Valves Name Value Normal Z-Score Percentile Semilunar Valves Doppler PV Peak Velocity. 0.4 m/s AV Peak Velocity () 0.6 m/s (Fetus A) Heart Rate Name Value Normal Z-Score Percentile Heart Rate HR 152 bpm Report Signatures Finalized by Nereida Galicia MD on 11/21/2024 10:00 AM Procedure Note Nereida Galicia MD - 11/21/2024 Name: Nyla Beaulieu Patient Exam Info Gender: Female Patient Status: O/P : 1995 Admit Date: 11/21/2024 Exam Date/Time: 11/21/2024 9:09 AM Site: [facility] Current Location: CARE EStaffOrdering Provider: Jorge Luis Lisa Interpreting Physician: Nereida Galicia MD Director Craft Center: Sigifredo Hargrove [facility] Study Info Procedure: ECHO COMPLETE CG Indications: Z3A.24 - 24 weeks gestation of (HCC) Maternal Gestational Status GA by EDC: 28 wks , 5 days EDC: 02/08/2025 Type: Shoemaker Age: 29 yrs Lie: Vertex Summary * The echocardiogram was within normal limits. * Small atrial and ventricular septal defects and persistent ductus arteriosus cannot be excluded as findings. Anatomic Relationships Left sided cardiac apex (levocardia). There is normal visceral-cardiac situs, and normal segmental cardiac anatomical relationship. Systemic Veins There is normal systemic venous return. Pulmonary Veins The visualized pulmonary veins drain normally to the left atrium. Right Atrium The right atrial size is normal. Left Atrium The left atrial size is normal. Atrial Septum Patent foramen ovale with open foramen flap. Color flow is right toleft. Right Ventricle The right ventricular cavity size is normal. The right ventricularwall thickness is normal. The right ventricular systolic function is normal. RV Outflow Tract The right ventricular outflow tract is normal. Left Ventricle The left ventricular cavity size is normal. The left ventricular wall thickness is normal. The left ventricular systolic function is normal. Ventricular Septum There is no ventricular septal defect with no shunting. LV Outflow Tract The left ventricular outflow tract is normal. Tricuspid Valve The tricuspid valve is structurally normal. The tricuspid inflow patternis normal. Tricuspid velocity is within the normal range. There is notricuspid regurgitation. Mitral Valve The mitral valve is structurally normal. The mitral inflow pattern is normal. Mitral velocity is within the normal range. There is no mitral regurgitation. Aorta aortic arch visualized and is without obstruction by 2D, colorflow and Doppler. Pulmonary Arteries The main pulmonary artery is normal, with confluent branch pulmonary arteries. Ductus Arteriosus The antegrade flow velocity and pattern in the ductal arch is normal.A normal ductus arteriosus is appreciated. Doppler Flow in the ductus venosus is normal. The umbilical vein flow patternis normal. The umbilical artery flow pattern is normal. Hydrops Assessment No pericardial effusion. No ascites present. No pleural effusion(s). Rhythm The rhythm is normal. There is 1:1 AV conduction. Pulmonary Valve The pulmonic valve is normal-sized. The transpulmonic velocity iswithin normal range. There is no pulmonic regurgitation. Aortic Valve The aortic valve is normal-sized. The transaortic velocity is withinnormal range. There is no aortic regurgitation. Doppler Measurements (Fetus A) Atrioventricular Valves Name Value Normal Z-ScorePercentile Atrioventricular Valves Doppler TV E Peak Velocity 0.4 m/s TV A Peak Velocity 0.6 m/s MV E Peak Velocity 0.2 m/s MV A Peak Velocity 0.4 m/s (Fetus A) Semilunar Valves Name Value Normal Z-ScorePercentile Semilunar Valves Doppler PV Peak Velocity. 0.4 m/s AV Peak Velocity () 0.6 m/s (Fetus A) Heart Rate Name Value Normal Z-ScorePercentile Heart Rate HR 152 bpm Report Signatures Finalized by Nereida Galicia MD on 11/21/2024 10:00 AM Jorge Luis Lisa MD ECHO CUPID Final Result * Sonogram - Complete (11/09/2024 3:00 PM [...] 2 lb 11 oz EFW by Hadlock ([id number]) LGA Growth Overview Exam date GA BPD [...] Z36.3: Encounter for screening for malformations Procedures 84624: US Preg Uterus Follow Up SpareTime PACS Anatomical Region Laterality Modality Other 11/09/2024 3:00 PM CDT us Jorge Luis L Marnie Story MD [facility] ORDERABLES Edited Result - Final from Last 3 Months Insurance [facility] Care Teams Stab Setter And Driller Relationship Specialty Start Date End Date Rocael Burr MD PCP - General Family Medicine 04/24/12
--- OUTSIDE RECORDS SUMMARY | 2024-12-04 11:40 | XMS_ITS | Clinical Summary ---
Author Organization [facility] Address [address] [place] [address] Care Team Providers Care Electrician Assistant Name Role Phone Rocael Burr MD Primary Care Provider [phone] Allergies Active Allergy Reactions Criticality Noted Date Comments Cephalosporins Rash Medium 05/09/2012 [place] Rash Medium 05/09/2012 Nickel Rash Medium 05/09/2012 [...] Blue Team Referring Provider: Jorge Luis Dye [phone] [] or Medicare Insurance [x] Dating Criteria: [...] [] MOC: [] Method of feeding: [] Body Fitter (specifically which provider): [] PP Depression Discussed: [] PP visits scheduled: Vaccines [] Flu Shot (Sep-Jan): [] COVID vaccine: [] Tdap (27-36wks): [] RSV vaccine (32-36wks): [] PP HPV vaccine counseling (<=26 yo): Maternal varicella, non-immune 08/13/2024 Overview (08/20/2024): Offer varivax Uterine fibroids affecting in second t [facility] 08/13/2024 Overview (08/22/2024): Imaging today confirms a [...] (02/12/2021): Added automatically from request for surgery [id number] Epigastric pain 02/12/2021 Overview (02/12/2021): Added automatically from request for surgery [id number] Colitis 02/12/2021 Overview (02/12/2021): Added automatically from request for surgery [id number] Multiple food allergies 03/05/2019 Eosinophilic esophagitis 08/22/2018 [...] Sex Assigned at Female 05/02/2018 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 Legal Sex Female 2:25 AM BELTING AND WEBBING INSPECTOR Gender Identity Female 05/02/2018 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 Sexual Orientation Straight 05/02/2018 8: 22 AM BELTING AND WEBBING INSPECTOR Obstetrics History Para Term AB IAB SAB Ectopic Multiple Livin g Live Births 1 0 0 0 0 0 0 0 0 0 0 Date Outcome GA Total Labor Labor/2nd/3rd Weight Sex Type Anes PTL Tamara A1 A5 Name Clin Current Summary Episode Dates Number of Fetuses Estimated Date of Delivery 08/13/2024 - Present (12/04/2024) 02/08/2025 (set by Amanda Ames MD on 08/22/2024 based on Day 5 Embryo Transfer on 05/23/2024) Dating Summary Based On BETTYE GA Diff Ultrasound on 07/30/2024 02/06/2025 +2d GA:12w5d Ultrasound on 06/22/2024 02/08/2025 Same GA:7w0d Day 5 Embryo Transfer on 05/23/2024 02/08/2025 Working Vitals Pregravid Weight Height TWG (As of 12/04/2024) Pregrav id BMI 160 cm (5' 3) [...] muscular dystrophy. Allergies Allergen Reactions Cephalosporins Rash [place] Rash Nickel Rash Social History Tobacco Use [...] Procedure Name Priority Date/Time Associated Diagnosis Comments HEPATITIS C ANTIBODY Routine 08/02/2024 from Last 3 Months or Most Recently Relevant to Health Maintenance Results * Hepatitis C antibody Blood (08/02/2024) SCRIBED HCV ab non Blood Jorge Luis Dye MD LAB MICROBIOLOGY - GENERAL ORDERABLES Final Result from Last 3 Months or Most Recently Relevant to Health Maintenance Insurance [employer] [employer] Advance Directives For more information, please contact: [phone] * Full Code (Latest Code Status on File) Date Activated Date Inactivated Comments 05/18/2024 6:33 AM 05/19/2024 5:00 AM * Full Code Date Activated Date Inactivated Comments 03/08/2018 7:36 AM 03/08/2018 12:14 PM * Full Code Date Activated Date Inactivated Comments 10/03/2017 11:55 PM 10/04/2017 5:29 AM Care Teams Electrician Assistant Relationship Specialty Start Date End Date Rocael Burr MD [address] [place] [id number] PCP - General Family Medicine 02/16/18
--- OUTSIDE RECORDS SUMMARY | 2024-12-04 11:40 | XMS_ITS | Clinical Summary ---
Author Organization [facility] Address [address] [place] [phone] Phone Care Team Providers Care Bath Tester Name Role Phone Rocael Burr MD Primary Care Provider Immunizations Immunization Administration Dates Next Due (PFIZER)(12 YR UP) COVID-19 VACCINE - EMERGENCY USE AUTHORIZATION, MRNA, [id number](PF) 30 MCG/0.3 ML IM SUSP 03/12/2020,02/20/2020 Influenza [...] 6 season) 2024 03/12/2020, 02/20/2020 Care Teams Bath Tester Relationship Specialty Start Date End Date Rocael Burr MD [address] [place] [address] PCP - General Family Practice 07/30/19
[2024-12-04 11:55] LABS: Total Protein Urine Random < 5 mg/dL; Ur Ttl Prot Creatinine Ratio < 0.04 mg/mg (0-0.20)
== END 2024-12-04 10:39 | disposition home or self-care (01) ==
LOC: ANHLAB 10:39
PROVIDERS: PCP Family Medicine; Visit Provider Nurse Practitioner Family
DX: R10.11 Right upper quadrant pain (principal)
CPT/HCPCS: 36415; 80053; 82570; 84156; 85027

== ENCOUNTER 2024-12-11 14:07 | Outpatient (CLI) | payer OTHER, SELFPAY ==
--- OUTSIDE RECORDS SUMMARY | 2024-12-11 16:06 | XMS_ITS | Clinical Summary ---
Author Organization [facility] Address [address] [place] [address] Care Team Providers Care Auto Body Repairer Fiberglass Name Role Phone Rocael Burr MD Primary Care Provider [phone] Allergies Active Allergy Reactions Criticality Noted Date Comments Cephalosporins Rash Medium 05/09/2012 [place] Rash Medium 05/09/2012 Nickel Rash Medium 05/09/2012 [...] Blue Team Referring Provider: Jorge Luis Dye [phone] [] or Medicare Insurance [x] Dating Criteria: [...] [] MOC: [] Method of feeding: [] Renewable Energy Division Manager (specifically which provider): [] PP Depression Discussed: [] PP visits scheduled: Vaccines [] Flu Shot (Sep-Jan): [] COVID vaccine: [] Tdap (27-36wks): [] RSV vaccine (32-36wks): [] PP HPV vaccine counseling (<=26 yo): Maternal varicella, non-immune 08/13/2024 Overview (08/20/2024): Offer varivax [facility] 08/13/2024 Overview (08/22/2024): Imaging today confirms [...] (02/12/2021): Added automatically from request for surgery [id number] Epigastric pain 02/12/2021 Overview (02/12/2021): Added automatically from request for surgery [id number] Colitis 02/12/2021 Overview (02/12/2021): Added automatically from request for surgery [id number] Multiple food allergies 03/05/2019 Eosinophilic esophagitis 08/22/2018 Environmental allergies 02/16/2018 GERD (gastroesophageal reflux disease) 8 Food impaction of esophagus 10/03/2017 Estimated Date of Delivery Comme nts Yes 02/08/2025 Based on Day 5 E mbryo Transfer Encounters Date Type Department Care Team Description 12/07/2024 Immunization [facility] Medicine Occupational Health [address] [place] [address] Ami Sanchez RN from Last 3 Months Immunizations Immunization Administration Dates Next Due Influenza, Trivalent, Cell C ulture-based MDCK, Preservative Free, Antibiotic Free, Intramuscular 12/07/2024,12/07/2023 Surgical History Surgery Date Site/Laterality Comments TONSILLECTOMY [...] Sex Assigned at Female 05/02/2018 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 Legal Sex Female 2:25 AM LUMBER STACKER DRIVER Gender Identity Female 05/02/2018 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 Sexual Orientation Straight 05/02/2018 8: 22 AM LUMBER STACKER DRIVER Obstetrics History Para Term AB IAB SAB Ectopic Multiple Livin g Live Births 1 0 0 0 0 0 0 0 0 0 0 Date Outcome GA Total Labor Labor/2nd/3rd Weight Sex Type Anes PTL Tamara A1 A5 Name Clin Current Summary Episode Dates Number of Fetuses Estimated Date of Delivery 08/13/2024 - Present (12/11/2024) 02/08/2025 (set by Amanda Ames MD on 08/22/2024 based on Day 5 Embryo Transfer on 05/23/2024) Dating Summary Based On BETTYE GA Diff Ultrasound on 07/30/2024 02/06/2025 +2d GA:12w5d Ultrasound on 06/22/2024 02/08/2025 Same GA:7w0d Day 5 Embryo Transfer on 05/23/2024 02/08/2025 Working Vitals Pregravid Weight Height TWG (As of 12/11/2024) Pregrav id BMI 160 cm (5' 3) [...] muscular dystrophy. Allergies Allergen Reactions Cephalosporins Rash [place] Rash Nickel Rash Social History Tobacco Use [...] - 3-dose SCDM series) 05/12/2023 Covid-19 Vaccine ( - season) 2024 03/12/2020, 02/20/2020 Hepatitis B Screening Completed 1995 , [birth year] Varicella Vaccines Completed 09/24/2006, 05/21/1997 Hepatitis C Screening Completed 08/02/2024, 025 Influenza Vaccine Completed 12/07/2024, , 12/02/2020, Additional history exists Pneumococcal vaccine <65 Aged Out No longer [...] Most Recently Relevant to Health Maintenance Insurance [facility] [employer] H[employer]/PPO Address: [address] [address] [employer] O[employer] Member Subscriber Plan / Payer (Ef fective 2021-Present) Name:Nyla Beaulieu Member ID:[id number] Relation to Subscriber:Self Name:Nyla Beaulieu Subscriber ID:[id number] Payer ID:[id number] (NAIC) Type:BC ALLIANCE Address: [address] EM[employer]ES [employer] HMO/PPO Address: [facility] [address] [place] [address] [facility] [employer] H[employer]/PPO Address: [address] [place] [id number] [place] [phone] Advance Directives For more information, please contact: [phone] * Full Code (Latest Code Status on File) Date Activated Date Inactivated Comments 05/18/2024 6:33 AM 05/19/2024 5:00 AM * Full Code Date Activated Date Inactivated Comments 03/08/2018 7:36 AM 03/08/2018 12:14 PM * Full Code Date Activated Date Inactivated Comments 10/03/2017 11:55 PM 10/04/2017 5:29 AM Care Teams Auto Body Repairer Fiberglass Relationship Specialty Start Date End Date Rocael Burr MD [address] [place] [id number] PCP - General Family Medicine 02/16/18
--- OUTSIDE RECORDS SUMMARY | 2024-12-11 16:06 | XMS_ITS | Clinical Summary ---
Author Organization [facility] Address [address] [place] [phone] Phone Care Team Providers Care Hook And Eye Machine Operator Name Role Phone Rocael Burr MD Primary Care Provider [phone] Immunizations Immunization Administration Dates Next Due (PFIZER)(12 YR UP) COVID-19 VACCINE - EMERGENCY USE AUTHORIZATION, MRNA, [id number](PF) 30 MCG/0.3 ML IM SUSP 03/12/2020,02/20/2020 Influenza [...] 6 season) 2024 03/12/2020, 02/20/2020 Care Teams Hook And Eye Machine Operator Relationship Specialty Start Date End Date Rocael Burr MD [address] [place] [address] PCP - General Family Practice 07/30/19
--- OUTSIDE RECORDS SUMMARY | 2024-12-11 16:06 | XMS_ITS | Clinical Summary ---
Author Organization [facility] Address [address] [place] [address] Care Team Providers Care Scrap Crusher Name Role Phone Rocael Burr MD Primary Care Provider [phone] Source Comments [facility],non-owned Affiliates and Associated Physician Practices is amultiple site organization consisting of ambulatory clinics and hospital sitesin [place], [place], [place] and [place]. This disclosure is being madepursuant to the Care Everywhere program and may not contain all information available regarding this patient. Last updated 17.[facility] Allergies Active Allergy Reactions Criticality Noted Date Comments Cephalosporins Rash Low 05/09/2012 [place] Rash Low 05/09/2012 Nickel Rash Low 05/09/2012 Medications * Be aware that medications may not be up to date on this document. Alwaysverify current medications with the patient. No known medications Active Problems Estimated Date of Delivery Comme nts Yes 02/06/2025 Based on Ultraso und No known active problems Encounters Date Type Department Care Team Description 12/07/2024 7:24 AM CDT - 12/07/2024 11:59 PM CDT Hospital Encounter [facility] [address] [place] [address] Jamel Hernandez MD Discharge Disposition: Home or Self Care 11/21/2024 9:00 AM CDT Hospital Encounter [facility] Care [address] [address] Nereida Galicia MD 11/21/2024 9:00 AM CDT Hospital Encounter [address] [address] Jorge Luis Lim MD Discharge Disposition: Home or Self Care 11/21/2024 Travel 11/09/2024 2:59 PM CDT - 11/09/2024 11:59 PM CDT Hospital Encounter [facility] & [facility] [address] [place] [phone] Gavin Kang MD TIME STAMP ASSEMBLER Discharge Disposition: Home or Self Care 10/31/[address] [address] Netta Swain Appointment 10/23/2024 Telephone [facility] [address] [place] [phone] Kelly Schultz RN Order (Called patient to let her know echocardiogram order received from Dr. Dye's office and someone from [facility] will reach out to get her scheduled. Patient works in [facility] and would prefer that location if that is an option. 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 Linked Results Indication ======== Supervision of IVF Maternal obesity complicating , class 1 (BMI 30.0 - 34.9) Uterine fibroids in Large for dates LGA growth, Normal 3-hr GTT History ====== OB History 1 Lab Tests Test Date Result NIPT Low risk, Male Maternal Assessment Physical Exam Height 163 cm, 5 ft 4 in. Weight 88 kg, 193 lb. Initial weight 81 kg, 179 lb. BMI 33.13 kg/m . Initial BMI 30.73 kg/m . Weight gain 6 kg, 14 lb Method ====== Transabdominal ultrasound. View: Good view ========= Shoemaker . Number of fetuses: 1 Dating ====== Date Details Gest. age BETTYE Stated BETTYE IVF Transfer, 5-day Embryo on 05/23 31 w + 0 d 02/08/2025 Previous U/S 07/30/2024 GA, GA 12 w + 5 d 31 w + 2 d 02/06/2025 U/S 12/07/2024 based upon AC, BPD, Femur, HC 32 w + 6 d 01/26/2025 Assigned dating based on stated BETTYE (IVF Transfer, 5-day Embryo on 05/23), selected on 12/07/2024 31 w + 0 d 02/08/2025 General Evaluation Cardiac activity present. FHR 148 bpm. Presentation: cephalic Placenta: Placental site: anterior Umbilical cord: Cord vessels: 3 vessel cord - previously documented Amniotic fluid: Amount of AF: normal. MVP 5.9 cm. FARHANA 18.4 cm. Q1 5.9 cm, Q2 5.8 cm, Q3 2.3 cm, Q4 4.4 cm Biometry BPD 81.2 mm 32w 4d 85% Hadlock HC 304.6 mm 33w 6d 88% Hadlock AC 294.1 mm 33w 3d 96% Hadlock Femur 60.6 mm 31w 4d 50% Hadlock Humerus 53.6 mm 31w 1d 60% Jonny HC / AC 1.04 Weight Calculation: EFW 2,059 g 91% Hadlock EFW (lb,oz) 4 lb 9 oz EFW by Hadlock (XAF-XK-HL-FL) appropriate, overall normal range, but the AC is >90% Growth Overview Exam date GA BPD (mm) HC (mm) AC (mm) FL (mm) HL (mm) EFW (g) 09/25/2024 20w 4d 50.6 78% 185.4 56% 166 77% 34.4 51% 33.1 72% 409 79% 11/09/2024 27w 0d 70.8 83% 264.3 79% 256.6 98% 48.4 16% 43.7 17% 1231 90% 12/07/2024 31w 0d 81.2 85% 304.6 88% 294.1 96% 60.6 50% 53.6 60% 205 91% Anatomy The following structures appear normal: Abdomen Stomach. Kidneys. Bladder. sex: male. Biophysical Profile 2: breathing movements 2: Gross body movements 2: tone 2: Amniotic fluid volume 10/05 Biophysical profile score Maternal Structures Uterus Fibroid(s) Size 48 mm x 38 mm x 37 mm. Mean 41.0 mm. Vol 35.337 cm Impression ========= Single, live, intrauterine at 31w 0d The size is appropriate, overall normal range, but the AC is >90% The amniotic fluid volume is normal Biophysical profile (BPP) is normal (10/05) Comment ======== U/S cannot detect all structural, genetic, or functional , placental, or maternal abnormalities Follow-up ======== Considering multiple clinical risk factors (BMI, IVF, LGA growth & retroplacental fibroids): Start 1x-weekly NST+BPP at 32 weeks Follow-up U/S for growth at 36 weeks Coding ====== Diagnoses O09.813: Supervision of resulting from assisted reproductive technology Z36.3: Encounter for screening for malformations O34.13: Maternal care for benign tumor of corpus uteri O99.213, E66.811: Obesity complicating , class 1 (BMI 30.0 - 34.9) O09.813: Supervision of resulting from assisted reproductive technology Procedures 57414: [place] [address]: Biophysical Profile W/O NST BillMyParentsM BriefCam PACS Anatomical Region Laterality Modality Other 12/07/2024 7:32 AM CDT us Jorge Luis Lisa MD [facility] ORDERABLES Edited Result - Final * ECHO COMPLETE CG (11/21/2024 9:51 AM [...] 11/21/2024 Exam Date/Time: 11/21/2024 9:09 AM Site: [facility] Current Location: CARE EStaffOrdering Provider: Jorge Luis Lisa Interpreting Physician: Nereida Galicia MD Plastic Jig And Fixture Builder: Sigifredo Hargrove [facility] Study Info Procedure: ECHO COMPLETE CG Indications: [...] 11/21/2024 Exam Date/Time: 11/21/2024 9:09 AM Site: [facility] Current Location: CARE EStaffOrdering Provider: Jorge Luis Lisa Interpreting Physician: Nereida Galicia MD Plastic Jig And Fixture Builder: Sigifredo Hargrove [facility] Study Info Procedure: ECHO COMPLETE CG Indications: [...] 11/21/2024 10:00 AM Jorge Luis Lisa MD [facility] Final Result from Last 3 Months Insurance [facility] CARE [facility] Care Teams Scrap Crusher Relationship Specialty Start Date End Date Rocael Burr MD PCP - General Family Medicine 04/24/12
--- NOTE | 2024-12-17 11:33 | WPDHOLTEREM ---
Holter/Event Monitor Holter/Event Monitor Date of procedure: 12/11/24 Holter/Event Procedure: 3-7 Day Holter Monitor Indications: Palpitations Conclusion: 1. 1 day holter monitor on 12/11/24. 2. Underlying rhythm is sinus rhythm. HR range 66-146 bpm; average HR 96 bpm. 3. There are rare premature supraventricular complexes and rare supraventricular couplets. No supraventricular tachycardia. 4. There are rare premature ventricular complexes. No ventricular tachycardia. 5. No significant pauses greater than 3 seconds. 6. Patient reports 3 episodes of symptoms of irregular beats, shortness of breath which demonstrate sinus rhythm, HR range 83-98 bpm with 2 episodes with PAC's.
== END 2024-12-11 14:08 | disposition home or self-care (01) ==
LOC: ANHCARD 14:09
PROVIDERS: PCP Family Medicine; Visit Provider Obstetrics & Gynecology
DX: R00.2 Palpitations (principal); Z34.90 Encounter for supervision of normal pregnancy, unspecified, unspecified trimester; Z3A.00 Weeks of gestation of pregnancy not specified
CPT/HCPCS: 93242

== ENCOUNTER 2025-01-10 18:11 | Outpatient (NON) | payer OTHER, SELFPAY ==
--- OUTSIDE RECORDS SUMMARY | 2025-01-10 18:20 | XMS_ITS | Clinical Summary ---
Author Organization [facility] Address [address] [place] [address] Care Team Providers Care Industrial Production Manager Name Role Phone Rocael Burr MD Primary Care Provider [phone] Allergies Active Allergy Reactions Criticality Noted Date Comments Cephalosporins Rash Medium 05/09/2012 Silt Rash Medium 05/09/2012 Nickel Rash Medium 05/09/2012 [...] Blue Team Referring Provider: Jorge Luis Dye [phone] [] or Medicare Insurance [x] Dating Criteria: [...] [] MOC: [] Method of feeding: [] Side Hemmer (specifically which provider): [] PP Depression Discussed: [] PP visits scheduled: Vaccines [] Flu Shot (Sep-Jan): [] COVID vaccine: [] Tdap (27-36wks): [] RSV vaccine (32-36wks): [] PP HPV vaccine counseling (<=26 yo): Maternal varicella, non-immune 08/13/2024 Overview (08/20/2024): Offer varivax Uterine fibroids [facility] 08/13/2024 Overview (08/22/2024): Imaging today confirms a [...] (02/12/2021): Added automatically from request for surgery [id number] Epigastric pain 02/12/2021 Overview (02/12/2021): Added automatically from request for surgery [id number] Colitis 02/12/2021 Overview (02/12/2021): Added automatically from request for surgery [id number] Multiple food allergies 03/05/2019 Eosinophilic esophagitis 08/22/2018 Environmental allergies 02/16/2018 GERD (gastroesophageal reflux disease) 8 Food impaction of esophagus 10/03/2017 Estimated Date of Delivery Comme nts Yes 02/08/2025 Based on Day 5 E mbryo Transfer Encounters Date Type Department Care Team Description 12/07/[address] [facility] Medicine Occupational Health [address] [facility] 5[address] [place] [address] Ami Sanchez RN from Last 3 Months [...] Sex Assigned at Female 05/02/2018 8:22 AM SUPERVISOR BOATBUILDERS WOOD Legal Sex Female 2:25 AM SUPERVISOR BOATBUILDERS WOOD Gender Identity Female 05/02/2018 8:22 AM SUPERVISOR BOATBUILDERS WOOD Sexual Orientation Straight 05/02/2018 8: 22 AM SUPERVISOR BOATBUILDERS WOOD Obstetrics History Para Term AB IAB SAB Ectopic Multiple Livin g Live Births 1 0 0 0 0 0 0 0 0 0 0 Date Outcome GA Total Labor Labor/2nd/3rd Weight Sex Type Anes PTL Tamara A1 A5 Name Clin Current Summary Episode Dates Number of Fetuses Estimated Date of Delivery 08/13/2024 - Present (01/10/2025) 02/08/2025 (set by Amanda Ames MD on 08/22/2024 based on Day 5 Embryo Transfer on 05/23/2024) Dating Summary Based On BETTYE GA Diff Ultrasound on 07/30/2024 02/06/2025 +2d GA:12w5d Ultrasound on 06/22/2024 02/08/2025 Same GA:7w0d Day 5 Embryo Transfer on 05/23/2024 02/08/2025 Working Vitals Pregravid Weight Height TWG (As of 01/10/2025) Pregrav id BMI 160 cm (5' 3) [...] muscular dystrophy. Allergies Allergen Reactions Cephalosporins Rash Silt Rash Nickel Rash Social History Tobacco Use [...] Most Recently Relevant to Health Maintenance Insurance [employer] Omise OOS Member Subscriber Plan / Payer (Ef fective 2021-Present) Name:Nyla Beaulieu Member ID:[id number] Relation to Subscriber:Self Name:Nyla Beaulieu Subscriber ID:[id number] Payer ID:[id number] (NAIC) Type:BC ALLIANCE Address: [address] EMPLOYEES [employer] Member Subscriber Plan / Payer (Ef fective 2022-Present) Name:Nyla Beaulieu Relation to Subscriber:Self Name:Nyla Beaulieu Payer ID:[id number] (NA) Type:[facility] HMO/PPO Address: [place] [id number] [place] [phone] Advance Directives For more information, please contact: [phone] * Full Code (Latest Code Status on File) Date Activated Date Inactivated Comments 05/18/2024 6:33 AM 05/19/2024 5:00 AM * Full Code Date Activated Date Inactivated Comments 03/08/2018 7:36 AM 03/08/2018 12:14 PM * Full Code Date Activated Date Inactivated Comments 10/03/2017 11:55 PM 10/04/2017 5:29 AM Care Teams Industrial Production Manager Relationship Specialty Start Date End Date Rocael Burr MD [address] [place] [phone] PCP - General Family Medicine 02/16/18
--- OUTSIDE RECORDS SUMMARY | 2025-01-10 18:20 | XMS_ITS | Clinical Summary ---
Author Organization [facility] Address [address] [place] [address] Care Team Providers Care Tube Mounter Name Role Phone Rocael Burr MD Primary Care Provider [phone] Source Comments [facility],non-owned Affiliates and Associated Physician Practices is amultiple site organization consisting of ambulatory clinics and hospital sitesin [place], [place], [place] and [place]. This disclosure is being madepursuant to the Care Everywhere program and may not contain all information available regarding this patient. Last updated 17.[facility] Allergies Active Allergy Reactions Criticality Noted Date Comments Cephalosporins Rash Low 05/09/2012 Gering Rash Low 05/09/2012 Nickel Rash Low 05/09/2012 [...] - 12/07/2024 11:59 PM CDT Hospital Encounter [facility] Women[facility] Health Maternal & Care [address] [place] [address] Jamel Hernandez MD Discharge Disposition: Home or Self Care 11/21/2024 9:00 AM CDT Hospital Encounter [facility] [place] [address] [place] [phone] Nereida Galicia MD 11/21/2024 9:00 AM CDT Hospital Encounter [facility] [place] [address] [place] [address] Jorge Luis Lim MD Discharge Disposition: Home or Self Care 11/21/2024 Travel 11/09/2024 2:59 PM CDT - 11/09/2024 11:59 PM CDT Hospital Encounter [facility] Maternal & Care [address] [place] [phone] Gavin Kang MD BOX COVERING MACHINE OPERATOR Discharge Disposition: Home or Self Care 10/31/2024 Telephone [facility] [address] [address] Netta Swain Appointment 10/23/2024 Telephone [facility] & Care [address] [place] [phone] Kelly Schultz RN Order (Called patient to let her know echocardiogram order received from Dr. Dye's office and someone from [facility] will reach out to get her scheduled. Patient works in [facility] and would prefer that location if that is an option. 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 Gender Identity Not on file Sexual Orientation Not on file Plan of Treatment Upcoming Encounters Date Type Department Care Team (Late st Contact Info) Description 01/11/2025 7:30 AM SALESPERSON RECREATIONAL VEHICLES Hospital Encounter [facility] Women's Health Maternal & Care [address] [place] [phone] Erin Adair MD [address] [facility] [address] [place] [address] BOX COVERING MACHINE OPERATOR Health Maintenance Due Date Last Done Comments HIV SCREENING 05/12/2011 HEPATITIS C SCREENING 05/07/2014 [...] yrs (1 - Risk 1-dose series) 12/12/2024 OB-GROUP B STREP SCREEN 01/02/2025 ZOSTER VACCINE (1 of 2) 2046 HIB [...] Encounter for ultrasound to assess growth (HCC) from Last 3 Months Results * Sonogram - Complete (12/07/2024 7:32 AM CDT) Only the most recent of2 resultswithin [...] 4 lb 9 oz EFW by Hadlock ([id number]-[id number]-FL) appropriate, overall normal range, but the AC [...] 88% 294.1 96% 60.6 50% 53.6 60% 2058 91% Anatomy The following structures appear normal: Abdomen Stomach. Kidneys. Bladder. sex: male. Biophysical Profile 2: breathing movements 2: Gross body movements 2: tone 2: Amniotic fluid volume 8/8 Biophysical profile score Maternal Structures Uterus Fibroid(s) [...] of resulting from assisted reproductive technology Procedures 14844: [place] [address]: Biophysical Profile W/O NST Kloudco PACS Anatomical Region Laterality Modality Other 12/07/2024 7:32 AM CDT us Jorge Luis Lisa MD [facility] ORDERABLES Edited Result - Final * [...] 11/21/2024 Exam Date/Time: 11/21/2024 9:09 AM Site: [facility] Current Location: CARE EStaffOrdering Provider: Jorge Luis Lisa Interpreting Physician: Nereida Galicia MD Aegis Console Operator Track: Sigifredo Hargrove [facility] Study Info Procedure: ECHO COMPLETE CG [...] MD on 11/21/2024 10:00 AM Procedure Note Nreeida Galicia MD - 11/21/2024 Name: Nyla Beaulieu Patient Exam Info Gender: Female Patient Status: O/P : 1995 Admit Date: 11/21/2024 Exam Date/Time: 11/21/2024 9:09 AM Site: [facility] Current Location: CARE EStaffOrdering Provider: Jorge Luis Lisa Interpreting Physician: Nereida Galicia MD Aegis Console Operator Track: Sigifredo Hargrove [facility] Study Info Procedure: ECHO COMPLETE CG [...] 10:00 AM Jorge Luis Lisa MD ECHO [facility] Final Result from Last 3 Months Insurance [facility] CARE [facility] Care Teams Tube Mounter Relationship Specialty Start Date End Date Rocael Burr MD PCP - General Family Medicine 04/24/12
--- OUTSIDE RECORDS SUMMARY | 2025-01-10 18:21 | XMS_ITS | Clinical Summary ---
Author Organization [facility] Address [address] [place] [address] Phone Care Team Providers Care Correctional Maintenance Technician Name Role Phone Rocael Burr MD Primary Care Provider Immunizations Immunization Administration Dates Next Due (PFIZER)(12 YR UP) COVID-19 VACCINE - EMERGENCY USE AUTHORIZATION, MRNA, [id number](PF) 30 MCG/0.3 ML IM SUSP 03/12/2020,02/20/2020 Influenza [...] , 12/18/2019, 12/02/2018 COVID-19 Vaccine (3 - 2025-2 6 season) 2024 03/12/2020, 02/20/2020 Care Teams Correctional Maintenance Technician Relationship Specialty Start Date End Date Rocael Burr MD [address] [place] [address] PCP - General Family Practice 07/30/19
[2025-01-10 18:23] VITALS: BMI 36.5
[2025-01-10 18:44] LABS: Serum Creat 0.59; Total Volume 24 Hour Urine 1150 ml
[2025-01-10 18:58] LABS: Total Protein Urine 24 Hr 92 mg/24hr (28-141); Total Protein Urine Random 8 mg/dL
[2025-01-10 18:59] LABS: Creatinine Clearance Urine 140.5 ml/min (75-125)
== END 2025-01-10 18:12 | disposition home or self-care (01) ==
LOC: ANHOBOP 18:19
PROVIDERS: Visit Provider Obstetrics & Gynecology
DX: O13.9 Gestational [pregnancy-induced] hypertension without significant proteinuria, unspecified trimester (principal); Z3A.00 Weeks of gestation of pregnancy not specified
CPT/HCPCS: 81050; 82575; 84156

== ENCOUNTER 2025-01-18 12:19 | Outpatient (RCR) | payer OTHER, SELFPAY ==
[2024-12-22 09:19] VITALS: BP 131/84; PULSE 90
[2024-12-29 09:50] VITALS: BP 129/90; PULSE 100
[2025-01-01 13:45] VITALS: BP 139/91; PULSE 94
[2025-01-06 09:57] VITALS: BP 133/84; PULSE 80
[2025-01-09 15:58] LABS: Hematocrit 32.1 % (37.0-47.0); Hemoglobin 10.1 g/dL (12.0-15.0); Immature Granulocyte Percent A 0.5 % (0-0.5); Lymphocytes Absolute Auto 2.02 K/mm3 (0.9-3.2); Mean Corpuscular HGB Conc 31.5 g/dl (32-36); Mean Corpuscular Hemoglobin 26.9 pg (26-34); Mean Corpuscular Volume 85.6 fl (80-100); Nucleated Red Blood Cells Absolute Auto 0.000 K/mm3 (0.0-0.012); Nucleated Red Blood Cells Perc 0.0 % (0.0-0.2); Platelet Count Result 247 k/mm3 (150-375); Red Blood Count 3.75 M/mm3 (4.2-5.4); White Blood Count 8.6 K/mm3 (4.5-10.0)
[2025-01-09 16:10] LABS: Alanine Aminotransferase 12 U/L (6-35); Albumin Level 3.3 g/dL (3.5-5.1); Alkaline Phosphatase 88 U/L (38-126); Anion Gap 7 mmol/L (4-12); Aspartate Amino Transferase 24 U/L (14-36); Bilirubin,Total 1.0 mg/dL (0.2-1.3); Blood Urea Nitrogen 9 mg/dL (7-17); Calcium 9.4 mg/dL (8.4-10.2); Carbon Dioxide 21 mmol/L (22-30); Chloride 104 mmol/L (98-107); Estimated Glomerular Filt Rate > 60; Glucose 80 mg/dL (65-110); Potassium 3.8 mmol/L (3.4-5.0); Sodium 132 mmol/L (137-145); Total Protein 6.4 g/dL (6.3-8.2); Uric Acid 4.1 mg/dL (2.5-7.5)
[2025-01-09 16:37] LABS: Add Urine Microscopic? YES; Appearance Urine Clear (Clear); Glucose Urine UA Negative (Negative); Leukocyte Esterase Ur Negative LEU/UL (Negative); Need Manual Microscopic Reviewed; Nitrate Urine Negative (Negative); Non Pathogenic Casts 0-2; Specific Grav Ur 1.023 (1.001-1.035)
[2025-01-09 16:48] LABS: Total Protein Urine Random 10 mg/dL; Ur Ttl Prot Creatinine Ratio 0.06 mg/mg (0-0.20)
[2025-01-09 17:19] VITALS: BP 135/77; PULSE 87
[2025-01-12 12:55] VITALS: BP 133/87; PULSE 78
--- NOTE | ~2025-01-18 | US_ITS ---
US OB limited 01/01/2025 14:13 Indication: Evaluate FARHANA. Procedure: High-resolution Limited obstetrical ultrasound Comparison: Ultrasound dated 12/29/2024 Findings: There is a single living intrauterine in vertex presentation. heart rate 129 BPM. Placenta anterior without previa. Amniotic fluid index is normal measuring 21.7 cm (normal range for gestational age 8.1-24.8 cm). Impression: 1: Normal FARHANA measures 21.7 cm. Reviewed, dictated and finalized at location O. TEGIC BUSINESS DEVELOPMENT Impression: 1: Normal FARHANA measures 21.7 cm.
--- NOTE | ~2025-01-18 | US_ITS ---
EXAMINATION: US OB BPP wo non-stress DATE: 12/22/2024 11:00 INDICATION: By IVF . Large for gestational age. Assess biophysical profile. TECHNIQUE: Real-time pelvic ultrasound was performed. The interpreting radiologist was not present for the study. COMPARISON: None. FINDINGS: There is a single living fetus in vertex presentation. The placenta is anterior and not low-lying. heart rate is 145 beats per minute (bpm). Normal amniotic fluid index 11.6 cm Biophysical profile performed by the technologist: breathing (30 sec sustained breathing in 30 minutes): 2 out of 2 movement (3 gross body movements in 30 minutes): 2 out of 2 tone (one episode of dsdalsw-gdbfhnrms-cflisci limb movement): 2 out of 2 Amniotic fluid pocket (2 cm): 2 out of 2 Total score: 8 out of 8 IMPRESSION: 1. Single living fetus in vertex presentation with heart rate of 145 bpm. 2. Biophysical profile 8 out of 8. Reviewed, dictated and finalized at location A.
--- NOTE | ~2025-01-18 | US_ITS ---
EXAMINATION: US OB BPP wo non-stress, 12/29/2024 10:32 CDT HISTORY: LGA Comparison: None Technique: Valle-scale sonographic images were obtained Findings: Single live intrauterine in longitudinal lie and vertex presentation, heart rate 146. Placenta located anteriorly FARHANA 4.7 IMPRESSION: Single live intrauterine detailed above Reviewed, dictated and finalized at location P.
--- NOTE | ~2025-01-18 | US_ITS ---
EXAM/PROCEDURE: US OB BPP wo non-stress HISTORY: IVF ; LGA baby COMPARISON: January 12 TECHNIQUE: Directed exam for biophysical profile score performed. FINDINGS: A single viable intrauterine gestation is present with heart rate of 146 bpm Presentation: Vertex Placenta: Anterior with no gross evidence of previa or abruption. FARHANA: 15.61 cm. EGA by dates 37 weeks 0 days EDC by dates February 08, 2025 Biophysical profile scores 8/8. IMPRESSION: Directed exam demonstrating a single viable intrauterine gestation with biophysical profile score of 8/8 and heart rate of 146 bpm. Reviewed, dictated and finalized at location A. L INSPECTOR IMPRESSION: Directed exam demonstrating a single viable intrauterine gestation with biophys ical profile score of 8/8 and heart rate of 146 bpm.
--- NOTE | ~2025-01-18 | US_ITS ---
EXAMINATION: US OB BPP wo non-stress, 01/12/2025 13:30 DIRECTOR ORACLE RETAIL HISTORY: GHTN Comparison: None Technique: Valle-scale and color Doppler images were obtained. Findings: Placenta is located anteriorly, no gross abruption. Single live intrauterine identified in longitudinal lie and vertex presentation, heart rate 137 BPP 8/8. FARHANA 15.9 IMPRESSION: Single live intrauterine detailed above Reviewed, dictated and finalized at location P. CTOR ORACLE RETAIL
--- NOTE | ~2025-01-18 | US_ITS ---
EXAMINATION: US OB BPP wo non-stress DATE: 01/06/2025 11:04 INDICATION: Large for gestational age. TECHNIQUE: Real-time pelvic ultrasound was performed. COMPARISON: Ultrasound 01/01/2025, 07/30/2024 FINDINGS: There is a single living fetus in vertex presentation. The placenta is anterior. heart rate is 146 beats per minute (bpm). The amniotic fluid index is 13.2 cm, which is normal. Biophysical profile performed by the technologist: breathing (30 sec sustained breathing in 30 minutes): 2 out of 2 movement (3 gross body movements in 30 minutes): 2 out of 2 tone (one episode of wlqgxfa-etcsrscne-ovgnulz limb movement): 2 out of 2 Amniotic fluid pocket (2 cm): 2 out of 2 Total score: 8 out of 8 IMPRESSION: 1. Single living fetus in vertex presentation. 2. Biophysical profile 8 out of 8. Reviewed, dictated and finalized at location E. ENT CHECKER
[2025-01-18 13:50] VITALS: BP 136/81; PULSE 88
== END 2025-01-24 08:02 | disposition home or self-care (01) ==
LOC: ANHOBOP 12:19
PROVIDERS: Visit Provider Obstetrics & Gynecology
DX: O36.63X0 Maternal care for excessive fetal growth, third trimester, not applicable or unspecified (principal); O09.813 Supervision of pregnancy resulting from assisted reproductive technology, third trimester; Z3A.33 33 weeks gestation of pregnancy; Z3A.34 34 weeks gestation of pregnancy; Z3A.35 35 weeks gestation of pregnancy; Z3A.36 36 weeks gestation of pregnancy
CPT/HCPCS: 36415; 59025; 76815; 76819; 80053; 81001; 82570; 84156; 84550; 85025; 87086

== ENCOUNTER 2025-01-23 14:38 | Outpatient (CLI) | payer OTHER, SELFPAY ==
--- OUTSIDE RECORDS SUMMARY | 2025-01-23 14:42 | XMS_ITS | Clinical Summary ---
Author Organization [facility] Address [address] [place] [address] Care Team Providers Care Die Cast Technician Name Role Phone Rocael Burr MD Primary Care Provider [phone] Source Comments [facility],non-owned Affiliates and Associated Physician Practices is amultiple site organization consisting of ambulatory clinics and hospital sitesin [place], [place], [place] and [place]. This disclosure is being madepursuant to the Care Everywhere program and may not contain all information available regarding this patient. Last updated 17.[facility] Allergies Active Allergy Reactions Criticality Noted Date Comments Cephalosporins Rash Low 05/09/2012 [place] Rash Low 05/09/2012 Nickel Rash Low 05/09/2012 Medications * Be aware that medications may not be up to date on this document. Alwaysverify current medications with the patient. No known medications Active Problems Estimated Date of Delivery Comme nts Yes 02/06/2025 Based on Ultraso und No known active problems Encounters Date Type Department Care Team Description 01/11/2025 7:30 AM INFORMATION STRATEGIST - 01/11/2025 11:59 PM INFORMATION STRATEGIST Hospital Encounter [facility] Women's Health Maternal & Care [address] [place] [address] Erin Adair MD CASHIER AND WAITER/WAITRESS Discharge Disposition: Home or Self Care 12/07/2024 7:24 AM CDT - 12/07/2024 11:59 PM CDT Hospital Encounter [facility] Maternal & Care [address] [place] [address] Jamel Hernandez MD Discharge Disposition: Home or Self Care 11/21/2024 9:00 AM CDT Hospital Encounter [address] [address] Nereida Galicia MD 11/21/2024 9:00 AM CDT Hospital Encounter [address] [address] Jorge Luis Lim MD Discharge Disposition: Home or Self Care 11/21/2024 Travel 11/09/2024 2:59 PM CDT - 11/09/2024 11:59 PM CDT Hospital Encounter [facility] Maternal & Care [address] [place] [id number] Gavin Kang MD CASHIER AND WAITER/WAITRESS Discharge Disposition: Home or Self Care 10/31/[address] [address] Netta Swain Appointment 10/23/2024 Telephone [facility] Maternal & Care [address] [place] [phone] Kelly Schultz RN Order (Called patient to let her know echocardiogram order received from Dr. Dye's office and someone from [facility] will reach out to get her scheduled. Patient works in [facility] and would prefer that location if that is an option. ) 10/23/2024 Orders Only [facility] Maternal & Care [address] [place] [phone] Kelly Schultz RN resulting from in vitro [...] on file Legal Sex Female 5:38 AM INFORMATION STRATEGIST Gender Identity Not on file Sexual Orientation [...] 2024 12/04/2022, 12/13/2021, 12/09/2020, Additional history exists OB-ONE HOUR GLUCOSE 10/31/2024 OB-TDAP CURRENT 11/07/2024 03/25/2010 OB-RHOGAM INJECTION 11/14/2024 OB-GROUP B STREP SCREEN 01/02/2025 ZOSTER VACCINE (1 of 2) 2046 INFLUENZA VACCINE Completed 12/07/2024, , 12/10/2021, Additional history exists HIB VACCINE Aged Out No longer eligi [...] on patient's age to complete this topic Respiratory Syncytial Virus (RSV) Vaccine Pt: or over 60 yrs (No Doses Required) Completed Procedures Procedure Name Priority Date/Time Associated Diagnosis Comments SONOGRAM - COMPLETE Routine 01/11/2025 7:33 AM INFORMATION STRATEGIST Encounter for ultrasound to assess growth (HCC) resulting from in vitro fertilization in third trimester (HCC) 36 weeks gestation of (HCC) SONOGRAM - COMPLETE Routine 12/07/2024 7:32 AM [...] 3 Months Results * Sonogram - Complete (01/11/2025 7:33 AM INFORMATION STRATEGIST) Only the most recent of3 resultswithin the time period is included. Linked Results Indication ======== Supervision of IVF Maternal obesity complicating , class 1 (BMI 30.0 - 34.9) Uterine fibroids in Large for dates History ====== OB History 1 Lab Tests Test Date Result NIPT Low risk, Male Maternal Assessment Physical Exam Height 163 cm, 5 ft 4 in. Weight 92 kg, 203 lb. Initial weight 81 kg, 179 lb. BMI 34.85 kg/m . Initial BMI 30.73 kg/m . Weight gain 11 kg, 24 lb Method ====== Transabdominal ultrasound. View: Limited by late gestational age, maternal body habitus, and position. ========= Shoemaker . Number of fetuses: 1 Dating ====== Date Details Gest. age BETTYE Stated BETTYE IVF Transfer, 5-day Embryo on 05/23 36 w + 0 d 02/08/2025 Previous U/S 07/30/2024 GA, GA 12 w + 5 d 36 w + 2 d 02/06/2025 U/S 01/11/2025 based upon AC, BPD, Femur, HC 38 w + 3 d 01/22/2025 Assigned dating based on stated BETTYE (IVF Transfer, 5-day Embryo on 05/23), selected on 12/07/2024 36 w + 0 d 02/08/2025 General Evaluation Cardiac activity present. FHR 148 bpm. Presentation: cephalic Placenta: Placental site: anterior Amniotic fluid: Amount of AF: mildly increased . MVP 8.1 cm. FARHANA 26.9 cm. Q1 8.1 cm, Q2 7.2 cm, Q3 5.8 cm, Q4 5.8 cm Biometry BPD 93.3 mm 38w 0d 95% Hadlock HC 346.5 mm 40w 1d 97% Hadlock AC 359.7 mm 39w 6d >99% Hadlock Femur 69.9 mm 35w 6d 41% Hadlock Humerus 60.5 mm 35w 0d 43% Jonny HC / AC 0.96 Weight Calculation: EFW 3,605 g 98% Hadlock EFW (lb,oz) 7 lb 15 oz EFW by Hadlock ([id number]) LGA Growth Overview Exam date GA BPD (mm) HC (mm) AC (mm) FL (mm) HL (mm) EFW (g) 09/25/2024 20w 4d 50.6 78% 185.4 56% 166 77% 34.4 51% 33.1 72% 409 79% 11/09/2024 27w 0d 70.8 83% 264.3 79% 256.6 98% 48.4 16% 43.7 17% 1231 90% 12/07/2024 31w 0d 81.2 85% 304.6 88% 294.1 96% 60.6 50% 53.6 60% 9 91% 01/11/2025 36w 0d 93.3 95% 346.5 97% 359.7 >99% 69.9 41% 60.5 43% 3605 98% Anatomy The following structures appear normal: Abdomen Stomach. Kidneys. Bladder. sex: male. Maternal Structures Uterus Fibroid(s) Size 28 mm x 53 mm x 43 mm. Mean 41.3 mm. Vol 33.412 cm . Right lateral wall Impression ========= Single, live, intrauterine at 36w 0d. The size is LGA. The amniotic fluid volume is mildly increased. Uterine fibroid as documented above. No major malformations were seen within the limits of ultrasound. Comment ======== ultrasound alone cannot detect all structural, genetic, or functional , placental, or maternal abnormalities. Follow-up ======== Continue weekly testing at primary OB office as scheduled. The patient is scheduled for BPP/NST tomorrow. Recommend delivery at 39-40 weeks. Coding ====== Diagnoses O09.813: Supervision of resulting from assisted reproductive technology Z36.3: Encounter for screening for malformations O34.13: Maternal care for benign tumor of corpus uteri O99.213, E66.811: Obesity complicating , class 1 (BMI 30.0 - 34.9) O09.813: Supervision of resulting from assisted reproductive technology Procedures 11245: US Preg Uterus Follow Up iLumenS Anatomical Region Laterality Modality Other 01/11/2025 7:33 AM INFORMATION STRATEGIST Jorge Luis Lisa MD [facility] ORDERABLES Edited Result - Final * ECHO COMPLETE CG (11/21/2024 9:51 AM CDT) MV E pk angela 24.25 cm/s [facility] CV F UJI PACS MV A pk angela 43.54 cm/s [facility] CV F UJI PACS Anatomical Region Laterality Modality Ultrasound 11/21/2024 9:09 AM CDT Narrative 11/21/2024 10:00 AM CDT Name: Nyla F Recklein Patient Exam Info Gender: Female Patient Status: O/P : 1995 Admit Date: 11/21/2024 Exam Date/Time: 11/21/2024 9:09 AM Site: [facility] Current Location: CARE EStaffOrdering Provider: Jorge Luis Lisa Interpreting Physician: Nereida Galicia MD Fire Apparatus Sprinkler Inspector: Sigifredo Hargrove RDCS Study Info Procedure: ECHO COMPLETE CG Indications: [...] 11/21/2024 Exam Date/Time: 11/21/2024 9:09 AM Site: [facility] Current Location: CARE EStaffOrdering Provider: Jorge Luis Lisa Interpreting Physician: Nereida Galicia MD Fire Apparatus Sprinkler Inspector: Sigifredo Hargrove [facility] Study Info Procedure: ECHO COMPLETE CG [...] Luis Lisa MD ECHO CUPID Final Result from Last 3 Months Insurance [facility] Address: [facility] [address] [place] [address] [facility] Address: [address] [address] Care Teams Die Cast Technician Relationship Specialty Start Date End Date Rocael Burr MD PCP - General Family Medicine 04/24/12
--- OUTSIDE RECORDS SUMMARY | 2025-01-23 14:42 | XMS_ITS | Clinical Summary ---
Author Organization [facility] Address [address] [place] [address] Care Team Providers Care Turn Sewer Name Role Phone Rocael Burr MD Primary Care Provider [phone] Allergies Active Allergy Reactions Criticality Noted Date Comments Cephalosporins Rash Medium 05/09/2012 Levels Rash Medium 05/09/2012 Nickel Rash Medium 05/09/2012 [...] Blue Team Referring Provider: Jorge Luis Dye [phone] [] or Medicare Insurance [x] Dating Criteria: [...] [] MOC: [] Method of feeding: [] Corporate Compliance Officer (specifically which provider): [] PP Depression Discussed: [] PP visits scheduled: Vaccines [] Flu Shot (Sep-Jan): [] COVID vaccine: [] Tdap (27-36wks): [] RSV vaccine (32-36wks): [] PP HPV vaccine counseling (<=26 yo): Maternal varicella, non-immune 08/13/2024 Overview (08/20/2024): Offer varivax Uterine fibroids affecting in second t [facility] 08/13/2024 Overview (08/22/2024): Imaging today confirms [...] (02/12/2021): Added automatically from request for surgery [id number] Epigastric pain 02/12/2021 Overview (02/12/2021): Added automatically from request for surgery [id number] Colitis 02/12/2021 Overview (02/12/2021): Added automatically from request for surgery [id number] Multiple food allergies 03/05/2019 Eosinophilic esophagitis 08/22/2018 Environmental allergies 02/16/2018 GERD (gastroesophageal reflux disease) 8 Food impaction of esophagus 10/03/2017 Estimated Date of Delivery Comme nts Yes 02/08/2025 Based on Day 5 E mbryo Transfer Encounters Date Type Department Care Team Description 12/07/2024 Immunization [facility] Medicine Occupational Health [address] [facility] [address] [place] [address] Ami Sanchez RN from Last 3 Months [...] Sex Assigned at Female 05/02/2018 8:22 AM HEALTH RECORDS TECHNOLOGY TEACHER Legal Sex Female 2:25 AM HEALTH RECORDS TECHNOLOGY TEACHER Gender Identity Female 05/02/2018 8:22 AM HEALTH RECORDS TECHNOLOGY TEACHER Sexual Orientation Straight 05/02/2018 8: 22 AM HEALTH RECORDS TECHNOLOGY TEACHER Obstetrics History Para Term AB IAB SAB Ectopic Multiple Livin g Live Births 1 0 0 0 0 0 0 0 0 0 0 Date Outcome GA Total Labor Labor/2nd/3rd Weight Sex Type Anes PTL Tamara A1 A5 Name Clin Current Summary Episode Dates Number of Fetuses Estimated Date of Delivery 08/13/2024 - Present (01/23/2025) 02/08/2025 (set by Amanda Ames MD on 08/22/2024 based on Day 5 Embryo Transfer on 05/23/2024) Dating Summary Based On BETTYE GA Diff Ultrasound on 07/30/2024 02/06/2025 +2d GA:12w5d Ultrasound on 06/22/2024 02/08/2025 Same GA:7w0d Day 5 Embryo Transfer on 05/23/2024 02/08/2025 Working Vitals Pregravid Weight Height TWG (As of 01/23/2025) Pregrav id BMI 160 cm (5' 3) [...] muscular dystrophy. Allergies Allergen Reactions Cephalosporins Rash Levels Rash Nickel Rash Social History Tobacco Use [...] Most Recently Relevant to Health Maintenance Insurance [facility] [facility] [employer] OOS Member Subscriber Plan / Payer (Ef fective 2021-Present) Name:Nyla Beaulieu Member ID:[id number] Relation to Subscriber:Self Name:Nyla Beaulieu Subscriber ID:[id number] Payer ID:[id number] (NAIC) Type:[employer] ALLIANCE Address: [address] EMPLOYEES [employer] EM[employer]ES Member Subscriber Plan / Payer (Ef fective 2022-Present) Name:Nyla Beaulieu Relation to Subscriber:Self Name:Nyla Beaulieu Payer ID:[id number] (NA) Type:[facility] HMO/PPO Address: [place] [id number] [place] [id number] Advance Directives For more information, please contact: [phone] * Full Code (Latest Code Status on File) Date Activated Date Inactivated Comments 05/18/2024 6:33 AM 05/19/2024 5:00 AM * Full Code Date Activated Date Inactivated Comments 03/08/2018 7:36 AM 03/08/2018 12:14 PM * Full Code Date Activated Date Inactivated Comments 10/03/2017 11:55 PM 10/04/2017 5:29 AM Care Teams Turn Sewer Relationship Specialty Start Date End Date Rocael Burr MD [address] [place] [id number] PCP - General Family Medicine 02/16/18
--- OUTSIDE RECORDS SUMMARY | 2025-01-23 14:42 | XMS_ITS | Clinical Summary ---
Author Organization [facility] Address [address] [place] [address] Phone Care Team Providers Care Deputy Director Of Finance Name Role Phone Rocael Burr MD Primary Care Provider Immunizations Immunization Administration Dates Next Due (PFIZER)(12 YR UP) COVID-19 VACCINE - EMERGENCY USE AUTHORIZATION, MRNA, [id number](PF) 30 MCG/0.3 ML IM SUSP 03/12/2020,02/20/2020 Influenza [...] 6 season) 2024 03/12/2020, 02/20/2020 Care Teams Deputy Director Of Finance Relationship Specialty Start Date End Date Rocael Burr MD [address] [place] [address] PCP - General Family Practice 07/30/19
[2025-01-23 16:00] LABS: Syphilis IgG/IgM Antibody Non-Reactive (Nonreactive)
== END 2025-01-23 14:39 | disposition home or self-care (01) ==
LOC: ANHLAB 14:39
PROVIDERS: PCP Family Medicine; Visit Provider Nurse Practitioner Family
DX: Z34.90 Encounter for supervision of normal pregnancy, unspecified, unspecified trimester (principal); Z3A.00 Weeks of gestation of pregnancy not specified
CPT/HCPCS: 36415; 86593

== ENCOUNTER 2025-01-23 16:14 | Inpatient (IN) | payer OTHER, SELFPAY ==
[2025-01-23] VITALS (26 sets, daily range): BP systolic 127–174; BP diastolic 66–106; PULSE 69–96; RESP 16; TEMP 36.8; BMI 36.7
--- OUTSIDE RECORDS SUMMARY | 2025-01-23 16:20 | XMS_ITS | Clinical Summary ---
Author Organization [facility] Address [address] [place] [address] Care Team Providers Care Television Specialist Name Role Phone Rocael Burr MD Primary Care Provider [phone] Allergies Active Allergy Reactions Criticality Noted Date Comments Cephalosporins Rash Medium 05/09/2012 [place] Rash Medium 05/09/2012 Nickel Rash Medium 05/09/2012 [...] Blue Team Referring Provider: Jorge Luis Dye [phone] [] or Medicare Insurance [x] Dating Criteria: [...] [] MOC: [] Method of feeding: [] Neon Sign Servicer (specifically which provider): [] PP Depression Discussed: [] PP visits scheduled: Vaccines [] Flu Shot (Sep-Jan): [] COVID vaccine: [] Tdap (27-36wks): [] RSV vaccine (32-36wks): [] PP HPV vaccine counseling (<=26 yo): Maternal varicella, non-immune 08/13/2024 Overview (08/20/2024): Offer varivax Uterine fibroids affecting in second t [facility] 08/13/2024 Overview (08/22/2024): Imaging today confirms [...] (02/12/2021): Added automatically from request for surgery [id number] Epigastric pain 02/12/2021 Overview (02/12/2021): Added automatically from request for surgery [id number] Colitis 02/12/2021 Overview (02/12/2021): Added automatically from request for surgery [id number] Multiple food allergies 03/05/2019 Eosinophilic esophagitis 08/22/2018 Environmental allergies 02/16/2018 GERD (gastroesophageal reflux disease) 8 Food impaction of esophagus 10/03/2017 Estimated Date of Delivery Comme nts Yes 02/08/2025 Based on Day 5 E mbryo Transfer Encounters Date Type Department Care Team Description 12/07/2024 Immunization [facility] Medicine Occupational Health [address] [facility] 5th [address] [place] [address] Ami Sanchez RN from Last 3 Months [...] Sex Assigned at Female 05/02/2018 8:22 AM COMPOTYPE OPERATOR Legal Sex Female 2:25 AM COMPOTYPE OPERATOR Gender Identity Female 05/02/2018 8:22 AM COMPOTYPE OPERATOR Sexual Orientation Straight 05/02/2018 8: 22 AM COMPOTYPE OPERATOR Obstetrics History Para Term AB IAB SAB [...] muscular dystrophy. Allergies Allergen Reactions Cephalosporins Rash [place] Rash Nickel Rash Social History Tobacco Use [...] Most Recently Relevant to Health Maintenance Insurance [employer] OOS Member Subscriber Plan / Payer (Ef fective 2021-Present) Name:Nyla Beaulieu Member ID:[id number] Relation to Subscriber:Self Name:Nyla Beaulieu Subscriber ID:[id number] Payer ID:[id number] (NAIC) Type:[employer] ALLIANCE Address: [address] EMPLOYEES [employer] Member Subscriber Plan / Payer (Ef fective 2022-Present) Name:Nyla Beaulieu Relation to Subscriber:Self Name:Nyla Beaulieu Payer ID:[id number] (NA) Type:[facility] HMO/PPO Address: [place] [id number] [place] [phone] Advance Directives For more information, please contact: [phone] * Full Code (Latest Code Status on File) Date Activated Date Inactivated Comments 05/18/2024 6:33 AM 05/19/2024 5:00 AM * Full Code Date Activated Date Inactivated Comments 03/08/2018 7:36 AM 03/08/2018 12:14 PM * Full Code Date Activated Date Inactivated Comments 10/03/2017 11:55 PM 10/04/2017 5:29 AM Care Teams Television Specialist Relationship Specialty Start Date End Date Rocael Burr MD [address] [place] [phone] PCP - General Family Medicine 02/16/18
--- OUTSIDE RECORDS SUMMARY | 2025-01-23 16:20 | XMS_ITS | Clinical Summary ---
Author Organization [facility] Address [address] [place] [address] Phone Care Team Providers Care Chief Jailer Name Role Phone Rocael Burr MD Primary Care Provider [phone] Immunizations Immunization Administration Dates Next Due (PFIZER)(12 YR UP) COVID-19 VACCINE - EMERGENCY USE AUTHORIZATION, MRNA, [id number](PF) 30 MCG/0.3 ML IM SUSP 03/12/2020,02/20/2020 Influenza [...] 6 season) 2024 03/12/2020, 02/20/2020 Care Teams Chief Jailer Relationship Specialty Start Date End Date Rocael Burr MD [address] [place] [address] PCP - General Family Practice 07/30/19
[2025-01-23 16:53] LABS: Hematocrit 34.7 % (37.0-47.0); Hemoglobin 10.9 g/dL (12.0-15.0); Immature Granulocyte Percent A 0.5 % (0-0.5); Lymphocytes Absolute Auto 2.00 K/mm3 (0.9-3.2); Mean Corpuscular HGB Conc 31.4 g/dl (32-36); Mean Corpuscular Hemoglobin 26.7 pg (26-34); Mean Corpuscular Volume 85.0 fl (80-100); Nucleated Red Blood Cells Absolute Auto 0.000 K/mm3 (0.0-0.012); Nucleated Red Blood Cells Perc 0.0 % (0.0-0.2); Platelet Count Result 255 k/mm3 (150-375); Red Blood Count 4.08 M/mm3 (4.2-5.4); White Blood Count 8.7 K/mm3 (4.5-10.0)
[2025-01-23] MEDS: ACETAMINOPHEN 500 MG TABLET 1000 MG PO (16:57)
[2025-01-23 17:08] LABS: Alanine Aminotransferase 13 U/L (6-35); Albumin Level 3.6 g/dL (3.5-5.1); Alkaline Phosphatase 114 U/L (38-126); Anion Gap 5 mmol/L (4-12); Aspartate Amino Transferase 26 U/L (14-36); Bilirubin,Total 1.0 mg/dL (0.2-1.3); Blood Urea Nitrogen 8 mg/dL (7-17); Calcium 9.1 mg/dL (8.4-10.2); Carbon Dioxide 20 mmol/L (22-30); Chloride 106 mmol/L (98-107); Estimated CRCL calculation 124 ml/min; Estimated Glomerular Filt Rate > 60; Glucose 82 mg/dL (65-110); Potassium 3.9 mmol/L (3.4-5.0); Sodium 131 mmol/L (137-145); Total Protein 6.8 g/dL (6.3-8.2); Uric Acid 5.0 mg/dL (2.5-7.5)
[2025-01-23 17:10] LABS: Total Protein Urine Random 17 mg/dL; Ur Ttl Prot Creatinine Ratio 0.09 mg/mg (0-0.20)
[2025-01-23 17:22] LABS: Add Urine Microscopic? YES; Appearance Urine Cloudy (Clear); Glucose Urine UA Negative (Negative); Leukocyte Esterase Ur Negative LEU/UL (Negative); Need Manual Microscopic Reviewed; Nitrate Urine Negative (Negative); Non Pathogenic Casts 0-2; Specific Grav Ur 1.027 (1.001-1.035)
--- NOTE | 2025-01-23 18:40 | LDADM ---
This patient, Nyla Beaulieu, was admitted to Labor/Delivery/Recovery 108 on 01/23/25 at 16:14. Plans for labor, pain management and were discussed with patient. Patient/family oriented to hospital policies and general routines including ID bracelet, bed and alarms, visiting hours, pain management, procedures, bathroom and other care routines, personal items, smoking policy, room service/diet and guest tray routines, infant security routines, and visiting hours. Patient/Family are encouraged to report perceived risks to care and to ask questions if they do not understand what they are told or what they should do. See OBIX for further documentation.
--- NOTE | 2025-01-23 19:18 | PC.NURSE ---
Pre-admission information recopied from information originally charted by Maria Ines Galicia on 01/12/25.
[2025-01-23] MEDS: DINOPROSTONE 10 MG VAG INSERT VAGINAL (20:05)
--- NOTE | 2025-01-23 20:11 | P.PNAN_ITS ---
Anes - Eval Pre Procedure Procedure: labor epidural Date/Time: 01/23/25 20:11 Surgeon: kelly Preop Diagnosis: pain during labor Pre Op Diagnosis: Induction of Labor Patient Data Age: 29 Gender: F Height: 1.6 m Weight: 94 kg Last Vital Signs Temp 36.8 C 01/23/25 16:45 Pulse 80 01/23/25 19:45 Resp 16 01/23/25 16:45 BP 144/76 H 01/23/25 19:45 O2 Del Method Room Air 01/23/25 18:39 Allergies Allergy/AdvReac Type Severity Reaction Status Date / Time Cephalosporins AdvReac Mild Hives Verified 01/23/25 18:44 cobalt AdvReac Mild Hives Verified 01/23/25 18:44 nickel AdvReac Mild Hives Verified 01/23/25 18:44 Home Medications ?Medication ?Instructions ?Recorded ?Confirmed ?Type cetirizine 10 mg tablet (Zyrtec) 10 mg PO DAILY PRN Al lergy Symptoms 11/27/20 01/23/25 History escitalopram oxalate 10 mg tablet 10 mg PO DAILY #90 t abs 02/16/24 01/23/25 Rx vitamins 30 30 mg iron-10 1 cap PO DAILY 06/2901/23/25 History mg iron-folic acid 1 mg-om3 capsule aspirin 81 mg chewable tablet 81 mg PO DAILY 10/22/24 01/23/25 History pyridoxine (vitamin B6) 50 mg 50 mg PO DAILY 11/02/24 01/23/25 History capsule ferrous sulfate 325 mg (65 mg 325 mg PO DAILY #90 tabs 11/14/24 01/23/25 Rx iron) tablet pantoprazole 40 mg tablet,delayed 40 mg PO DAILY #90 t abs 12/04/24 01/23/25 Rx release (Protonix) ondansetron HCl 4 mg tablet 4 mg PO Q8H PRN nausea and 01/11/25 01/23/25 Rx vomiting #30 tabs Laboratory Tests 01/23/25 01/23/25 16:41 18:59 WBC 8.7 K/mm3 (4.5-10.0) RBC 4.08 L M/mm3 (4.2-5.4) Hgb 10.9 L g/dL (12.0-15.0) Hct 34.7 L % (37.0-47.0) MCV 85.0 fl (80-100) MCH 26.7 pg (26-34) MCHC 31.4 L g/dl (32-36) RDW 15.9 H % (11.5-14.5) Plt Count 255 k/mm3 (150-375) MPV 10.4 fl (7.4-10.4) Immature Gran % (Auto) 0.5 % (0-0.5) Neut % (Auto) 70.6 % (45.5-73.1) Lymph % (Auto) 23.0 % (18.3-44.2) [place] % (Auto) 5.3 % (2.6-8.5) Eos % (Auto) 0.5 % (0-4.4) Baso % (Auto) 0.1 L % (0.2-1.2) Lymph # (Auto) 2.00 K/mm3 (0.9-3.2) [place] # (Auto) 0.5 K/mm3 (0.1-0.6) Eos # (Auto) 0.0 K/mm3 (0-0.3) Baso # (Auto) 0.0 K/mm3 (0.0-0.1) Abs Immat Gran (auto) 0.04 H K/mm3 (0.00-0.031) Absolute Neuts (auto) 6.2 K/mm3 (1.3-6.7) Absolute Nucleated RBC 0.000 K/mm3 (0.0-0.012) Nucleated RBC % 0.0 % (0.0-0.2) Sodium 131 L mmol/L (137-145) Potassium 3.9 mmol/L (3.4-5.0) Chloride 106 mmol/L (98-107) Carbon Dioxide 20 L mmol/L (22-30) Anion Gap 5 mmol/L (4-12) BUN 8 mg/dL (7-17) Creatinine 0.63 L mg/dL (0.7-1.0) Estim Creat Clear Calc 124 ml/min Estimated GFR > 60 (59 - ) Glucose 82 mg/dL (65-110) Uric Acid 5.0 mg/dL (2.5-7.5) Calcium 9.1 mg/dL (8.4-10.2) Total Bilirubin 1.0 mg/dL (0.2-1.3) AST 26 U/L (14-36) ALT 13 U/L (6-35) Alkaline Phosphatase 114 U/L (38-126) Total Protein 6.8 g/dL (6.3-8.2) Albumin 3.6 g/dL (3.5-5.1) Urine Color Yellow (Yellow) Urine Appearance Cloudy H (Clear) Urine pH 6.0 (5.0-9.0) Ur Specific [place] 1.027 (1.001-1.035) Urine Protein 1+ H mg/dL (Negative) Urine Glucose (UA) Negative mg/dL (Negative) Urine Ketones Trace H mg/dL (Negative) Ur Blood (Man) Negative (Negative) Urine Nitrate Negative (Negative) Urine Bilirubin Negative (Negative) Urine Urobilinogen 1.0 mg/dL (<2.0) Add Ur Microanalysis Reviewed Leukocyte Esterase Rfl Negative NBA/UL (Negative) Urine RBC 3-5 H /hpf (0-2) Urine WBC 11-20 H /hpf (0-3) Ur Squamous Epith Cells None seen /hpf (Few) Urine Bacteria 2+ H /hpf Urine Casts 0-2 U Random Total Protein 17 mg/dL Urine Creatinine 196.0 mg/dL Protein/Creat Ratio 2 0.09 mg/mg (0-0.20) Blood Type Pending Antibody Screen Pending Patient hx anesthesia problems: none Family hx anesthesia problems: none Results Review: All pre-operative results and documents have been reviewed as part of the pre- operative evaluation. [facility] Past Medical History Medical History Irritable bowel syndrome with diarrhea PCOS (polycystic ovarian syndrome) Fibroid GERD (gastroesophageal reflux disease) Generalized anxiety disorder Oral contraceptive pill surveillance Seasonal allergies Surgical History Surgical History S/P surgery on nasal septum H/O esophagogastroduodenoscopy H/O wisdom tooth extraction Hx of tonsillectomy Family History Family History Mother Hypertension Grandparent Carcinoma of colon Family history of type 2 diabetes mellitus Social History Social History (Reviewed 11/26/25 @ 14:14 by Aditi Jones [facility] Smoking status: Never smoker Alcohol intake: current Alcohol use details: Rarely Substance use: never Lack of Transportation: No Lack of Food: Never True Current Housing: I Have Housing Concerned About Future Housing: No Difficulty Paying Gas/Electric Bills: No Difficulty Paying for Meds: No Currently Unemployed: No Education: Bachelor's Degree Difficulty w/ Childcare or Family Care: No Living arrangements: with family Occupation/Education: occupation Gender identity (if verbalized by the patient): Female Sexual Orientation (if Verbalized by the Patient): Straight or Heterosexual Spiritual care concerns: No Exam Day of Procedure 01/23/25 20:11
[2025-01-23] MEDS: ESCITALOPRAM OXALATE 10 MG TABLET PO (21:18)
[2025-01-24] VITALS (42 sets, daily range): BP systolic 102–166; BP diastolic 64–93; PULSE 64–110; TEMP 36.6–37
[2025-01-24] MEDS: DINOPROSTONE 10 MG VAG INSERT VAGINAL (08:15)
--- NOTE | 2025-01-24 12:16 | P.HP_ITS ---
H&P: HPI History of Present Illness Date/Time: 01/24/25 12:16 Chief Complaint: High bp Narrative: 29 y/o at 37 6/7 weeks with elevated bp. Have offered induction of labor for gestational HTN. She had Cervidil overnight. Cervix still unfavorable this morning, so she received a second dose. She feels some contractions. No headache, visual field change, or upper abdominal pain. was conceived through IVF/ET. She has uterine fibroids. Ultrasound exam 2 weeks ago showed EFW 7#15oz (98th %ile.) Review of Systems Review of Systems: All systems reviewed & are unremarkable except as noted in HPI and below PMFSH Past Medical History Medical History Irritable bowel syndrome with diarrhea PCOS (polycystic ovarian syndrome) Fibroid GERD (gastroesophageal reflux disease) Generalized anxiety disorder Oral contraceptive pill surveillance Seasonal allergies Surgical History Surgical History S/P surgery on nasal septum H/O esophagogastroduodenoscopy H/O wisdom tooth extraction Hx of tonsillectomy Family History Family History Mother Hypertension Grandparent Carcinoma of colon Family history of type 2 diabetes mellitus Social History Social History Smoking status: Never smoker Alcohol intake: current Alcohol use details: Rarely Substance use: never Lack of Transportation: No Lack of Food: Never True Current Housing: I Have Housing Concerned About Future Housing: No Difficulty Paying Gas/Electric Bills: No Difficulty Paying for Meds: No Currently Unemployed: No Education: Bachelor's Degree Difficulty w/ Childcare or Family Care: No Living arrangements: with family Occupation/Education: occupation Gender identity (if verbalized by the patient): Female Sexual Orientation (if Verbalized by the Patient): Straight or Heterosexual Spiritual care concerns: No Meds Home Medications and Allergies Home Medications ?Medication ?Instructions ?Recorded ?Confirmed ?Type cetirizine 10 mg tablet (Zyrtec) 10 mg PO DAILY PRN Al lergy Symptoms 11/27/20 01/23/25 History escitalopram oxalate 10 mg tablet 10 mg PO DAILY #90 t abs 12/19/24 11/26/25 Rx vitamins 30 30 mg iron-10 1 cap PO DAILY 06/2901/23/25 History mg iron-folic acid 1 mg-om3 capsule aspirin 81 mg chewable tablet 81 mg PO DAILY 10/22/24 01/23/25 History pyridoxine (vitamin B6) 50 mg 50 mg PO DAILY 11/02/24 01/23/25 History capsule ferrous sulfate 325 mg (65 mg 325 mg PO DAILY #90 tabs 11/14/24 01/23/25 Rx iron) tablet pantoprazole 40 mg tablet,delayed 40 mg PO DAILY #90 t abs 12/04/24 01/23/25 Rx release (Protonix) ondansetron HCl 4 mg tablet 4 mg PO Q8H PRN nausea and 01/11/25 01/23/25 Rx vomiting #30 tabs Allergies Allergy/AdvReac Type Severity Reaction Status Date / Time Cephalosporins AdvReac Mild Hives Verified 01/23/25 18:44 cobalt AdvReac Mild Hives Verified 01/23/25 18:44 nickel AdvReac Mild Hives Verified 01/23/25 18:44 Vital Signs Vital Signs - 24 hr 01/23/25 16:44 01/23/25 16:45 01/23/25 16:45 Temperature 98.2 F Pulse Rate 84 88 Respiratory Rate 16 Blood Pressure 143/97 H Blood Pressure [Left Arm] 143/97 H Oxygen Delivery 01/23/25 17:00 01/23/25 17:15 01/23/25 17:30 Temperature Pulse Rate 82 83 96 Respiratory Rate Blood Pressure 147/90 H 153/106 H 156/88 H Blood Pressure [Left Arm] Oxygen Delivery 01/23/25 18:00 01/23/25 18:15 01/23/25 18:39 Temperature Pulse Rate 93 85 Respiratory Rate Blood Pressure 174/105 H 164/98 H Blood Pressure [Left Arm] Oxygen Delivery Room Air 01/23/25 19:00 01/23/25 19:15 01/23/25 19:30 Temperature Pulse Rate 94 84 86 Respiratory Rate Blood Pressure 143/90 H 146/77 H 144/79 H Blood Pressure [Left Arm] Oxygen Delivery 01/23/25 19:45 01/23/25 20:15 01/23/25 20:30 Temperature Pulse Rate 80 93 92 Respiratory Rate Blood Pressure 144/76 H 135/81 145/89 H Blood Pressure [Left Arm] Oxygen Delivery 01/23/25 20:45 01/23/25 21:00 01/23/25 21:15 Temperature Pulse Rate 93 85 84 Respiratory Rate Blood Pressure 134/86 149/84 H 138/91 H Blood Pressure [Left Arm] Oxygen Delivery 01/23/25 21:30 01/23/25 21:45 01/23/25 22:00 Temperature Pulse Rate 87 81 82 Respiratory Rate Blood Pressure 132/85 138/80 148/83 H Blood Pressure [Left Arm] Oxygen Delivery 01/23/25 22:15 01/23/25 22:30 01/23/25 22:45 Temperature Pulse Rate 81 79 83 Respiratory Rate Blood Pressure 135/72 127/66 142/79 H Blood Pressure [Left Arm] Oxygen Delivery 01/23/25 23:00 01/23/25 23:15 01/23/25 23:30 Temperature Pulse Rate 88 83 69 Respiratory Rate Blood Pressure 128/80 130/93 H 154/88 H Blood Pressure [Left Arm] Oxygen Delivery 01/23/25 23:45 01/24/25 00:00 01/24/25 00:15 Temperature Pulse Rate 72 80 72 Respiratory Rate Blood Pressure 131/77 131/70 153/86 H Blood Pressure [Left Arm] Oxygen Delivery 01/24/25 00:30 01/24/25 00:46 01/24/25 01:00 Temperature Pulse Rate 75 73 64 Respiratory Rate Blood Pressure 123/77 147/90 H 143/85 H Blood Pressure [Left Arm] Oxygen Delivery 01/24/25 01:15 01/24/25 01:30 01/24/25 01:45 Temperature Pulse Rate 83 72 84 Respiratory Rate Blood Pressure 123/78 142/80 H 117/76 Blood Pressure [Left Arm] Oxygen Delivery 01/24/25 02:00 01/24/25 02:15 01/24/25 02:30 Temperature Pulse Rate 72 66 79 Respiratory Rate Blood Pressure 146/91 H 147/81 H 144/90 H Blood Pressure [Left Arm] Oxygen Delivery 01/24/25 02:45 01/24/25 03:00 01/24/25 03:15 Temperature Pulse Rate 80 78 86 Respiratory Rate Blood Pressure 115/64 125/67 125/84 Blood Pressure [Left Arm] Oxygen Delivery 01/24/25 03:30 01/24/25 03:45 01/24/25 04:00 Temperature Pulse Rate 89 75 84 Respiratory Rate Blood Pressure 136/81 146/85 H 123/64 Blood Pressure [Left Arm] Oxygen Delivery 01/24/25 04:15 01/24/25 04:30 01/24/25 04:45 Temperature Pulse Rate 86 78 81 Respiratory Rate Blood Pressure 102/72 125/80 166/93 H Blood Pressure [Left Arm] Oxygen Delivery 01/24/25 04:49 01/24/25 05:00 01/24/25 05:15 Temperature Pulse Rate 79 86 86 Respiratory Rate Blood Pressure 132/91 H 126/89 Blood Pressure [Left Arm] Oxygen Delivery 01/24/25 09:57 01/24/25 10:00 01/24/25 11:00 Temperature Pulse Rate 96 95 87 Respiratory Rate Blood Pressure 135/82 140/76 148/84 H Blood Pressure [Left Arm] Oxygen Delivery 01/24/25 12:00 Temperature Pulse Rate 91 Respiratory Rate Blood Pressure 140/90 Blood Pressure [Left Arm] Oxygen Delivery Exam Const: Other: Well-developed, well-nourished female in no acute distress. Neck: Other: Neck: Trachea midline, no thyromegaly or masses. Resp: Other: Lungs: Normal respiratory effort. Clear to auscultation bilaterally. Cardio: Other: Heart: Regular rate and rhythm with normal S1-S2. GI: Other: ABD: Soft, nontender, nondistended, gravid. No guarding or rebound tenderness. No hepatosplenomegaly. NST reactive. TOCO: irregular contractions. : Other: Cervix: 1/50 per RN. Back/Spine/Pelvis: Other: Back: No CVA tenderness. Skin: Other: Skin: No lesions, rashes or ulcers noted. Extrem: Other: Extremities: nontender with no edema Psych: Other: Mental status grossly normal, with normal mood and affect. H&P: Results Labs Labs: Short CBC 01/23/25 Range/Units 16:41 WBC 8.7 (4.5-10.0) K/mm3 Hgb 10.9 L (12.0-15.0) g/dL Hct 34.7 L (37.0-47.0) % Plt Count 255 (150-375) k/mm3 [facility] 01/23/25 16:41 Sodium 131 L Potassium 3.9 Chloride 106 Carbon Dioxide 20 L BUN 8 Creatinine 0.63 L Glucose 82 Calcium 9.1 Liver Function 01/23/25 Range/Units 16:41 Total Bilirubin 1.0 (0.2-1.3) mg/dL AST 26 (14-36) U/L ALT 13 (6-35) U/L Alkaline Phosphatase 114 (38-126) U/L Albumin 3.6 (3.5-5.1) g/dL Urine 01/23/25 Range/Units 16:41 Urine Color Yellow (Yellow) Urine Appearance Cloudy H (Clear) Urine pH 6.0 (5.0-9.0) Ur Specific Sage 1.027 (1.001-1.035) Urine Protein 1+ H (Negative) mg/dL Urine Glucose (UA) Negative (Negative) mg/dL Assessment and Plan Assessment and plan (1) Term : Code(s): Z34.90 - Encounter for supervision of normal , unspecified, unspecified trimester Status: Acute Assessment and Plan: A: IUP at 37 6/7 weeks with gestational HTN. P: Have offered induction of labor, and she agrees. Currently with Cervidil. Plan oxytoxin after cervical ripening. We reviewed risks / benefits / alternatives in detail. Will continue to monitor closely. (2) Gestational hypertension: Code(s): O13.9 - Gestational [-induced] hypertension without significant proteinuria, unspecified trimester Status: Acute
[2025-01-24] MEDS: OXYTOCIN 30 UNITS/NS 500 ML 30 UNITS/500 ML BAG IV CONT (21:08)
[2025-01-24] MEDS: LACTATED RINGERS 1,000 ML 125 ML IV CONT (21:09)
[2025-01-24] MEDS: ESCITALOPRAM OXALATE 10 MG TABLET PO (22:08)
[2025-01-25] VITALS (325 sets, daily range): BP systolic 87–161; BP diastolic 53–96; PULSE 70–135; RESP 15–20; TEMP 36.8–37.9; O2SAT 94–100
[2025-01-25] MEDS: LACTATED RINGERS 1,000 ML 125 ML IV CONT ×5 (02:53→22:40)
[2025-01-25] MEDS: ONDANSETRON INJ 4 MG/2 ML VIAL IV PUSH (05:06)
[2025-01-25] MEDS: SODIUM CHLORIDE 0.9% IV 300 ML 600 ML I-UTERINE (11:36)
[2025-01-25] MEDS: FAMOTIDINE 20 MG/2 ML VIAL IV PUSH (12:12)
[2025-01-25] MEDS: CALCIUM CARBONATE (TUMS) 500 MG (200 MG ELEMENTAL) PO (15:28)
[2025-01-25 17:57] LABS: Hematocrit 35.9 % (37.0-47.0); Hemoglobin 11.3 g/dL (12.0-15.0); Immature Granulocyte Percent A 0.5 % (0-0.5); Lymphocytes Absolute Auto 1.54 K/mm3 (0.9-3.2); Mean Corpuscular HGB Conc 31.5 g/dl (32-36); Mean Corpuscular Hemoglobin 27.2 pg (26-34); Mean Corpuscular Volume 86.5 fl (80-100); Nucleated Red Blood Cells Absolute Auto 0.000 K/mm3 (0.0-0.012); Nucleated Red Blood Cells Perc 0.0 % (0.0-0.2); Platelet Count Result 243 k/mm3 (150-375); Red Blood Count 4.15 M/mm3 (4.2-5.4); White Blood Count 15.7 K/mm3 (4.5-10.0)
[2025-01-25 18:09] LABS: Alanine Aminotransferase 12 U/L (6-35); Albumin Level 3.2 g/dL (3.5-5.1); Alkaline Phosphatase 116 U/L (38-126); Anion Gap 7 mmol/L (4-12); Aspartate Amino Transferase 24 U/L (14-36); Bilirubin,Total 1.3 mg/dL (0.2-1.3); Blood Urea Nitrogen 4 mg/dL (7-17); Calcium 8.6 mg/dL (8.4-10.2); Carbon Dioxide 22 mmol/L (22-30); Chloride 105 mmol/L (98-107); Estimated CRCL calculation 135 ml/min; Estimated Glomerular Filt Rate > 60; Glucose 78 mg/dL (65-110); Potassium 4.2 mmol/L (3.4-5.0); Sodium 134 mmol/L (137-145); Total Protein 6.2 g/dL (6.3-8.2)
[2025-01-25] MEDS: AMPICILLIN SODIUM 2 GM in SODIUM CHLORIDE 0.9% IV 100 ML 200 ML IVPB (18:11)
--- NOTE | 2025-01-25 20:56 | PC.NURSE ---
Verbal order given from Dr. Casas for max 40u of pitocin
[2025-01-25] MEDS: ESCITALOPRAM OXALATE 10 MG TABLET PO (21:23)
[2025-01-25] MEDS: ACETAMINOPHEN 500 MG TABLET 1000 MG PO (21:24)
[2025-01-25] MEDS: OXYTOCIN 30 UNITS/NS 500 ML 30 UNITS/500 ML BAG 40 UNITS IV CONT ×2 (21:30)
[2025-01-25] MEDS: AMPICILLIN SODIUM 1 GM in SODIUM CHLORIDE 0.9% IV 50 ML 100 ML IVPB (22:12)
--- NOTE | 2025-01-25 23:15 | PM.OBPNLAB ---
Pain Control Date/time seen: 01/25/25 23:15 Pain control: epidural Comments: Sleeping Pelvic Exam Dilation (cm): 6 Contractions Contraction frequency: 3 Status Comments: Reassuring NST Assessment and Plan Pitocin rate (mU/min): 40 Comments: Continue labor
[2025-01-26] VITALS (63 sets, daily range): BP systolic 96–162; BP diastolic 63–108; PULSE 77–104; RESP 15–19; TEMP 36.5–37.1; O2SAT 80–100
[2025-01-26] MEDS: FAMOTIDINE 20 MG/2 ML VIAL IV PUSH (01:19)
[2025-01-26] MEDS: ONDANSETRON INJ 4 MG/2 ML VIAL IV PUSH (01:22)
--- NOTE | 2025-01-26 01:24 | PM.OBPNLAB ---
Pain Control Date/time seen: 01/26/25 01:24 Comments: Comfortable Pelvic Exam Dilation (cm): 6 Effacement (%): 50 station: -1 Contractions Contraction frequency: 3 Contraction pattern: Irregular Status status: Category l Assessment and Plan Pitocin rate (mU/min): 40 Comments: A: Arrest of dilation in labor. Cervix has been unchanged. P: Offered primary . She understands risks of surgery to include risks of anesthesia, risks of pain, infection, bleeding, blood products, thromboembolic phenomena and damage to adjacent structures such as bowel, bladder, ureters, blood vessels and nerves. She understands all these risks and elects to proceed with surgery.
--- NOTE | 2025-01-26 02:46 | P.PCNOB_ITS ---
OB - Delivery Note Procedure Delivery date: 01/26/25 Pre-op diagnosis: Arrest of Dilation Post-op Diagnosis: Same Induction method: Per Cervidil Protocol Delivery augmentation: Pitocin Delivery monitor: External FHT, External Uterine and Internal Uterine Prior to decision for section, ACOG/SMFM labor guidelines were considered and discussed with the patient and staff. Decision made to proceed with the section.: Yes Procedure Performed: Primary Surgeon: Javed Casas MD Anesthesia type: Epidural Description of Procedure/Findings: Findings: The uterus was fibroid. Otherwise, the uterus, tubes and ovaries were unremarkable. Techniques: The patient was taken to the operating room where she was prepared and draped in the usual sterile fashion in dorsal supine position with a leftward tilt. She received gentamicin and clindamycin preoperatively. Epidural anesthesia was found to be adequate. A Pfannenstiel skin incision was made and carried through to the underlying layer of the fascia. The fascia was incised in the midline and the incision was extended laterally. The fascia was dissected free of the underlying rectus muscles. The rectus muscles were in the midline. The peritoneum was identified, tented up and entered sharply. The peritoneal incision was extended superiorly and inferiorly with good visualization of the bladder. The bladder blade was placed. The ves icouterine peritoneum was identified, tented up and entered sharply. The incision was extended laterally and the bladder flap was developed. The bladder blade was replaced. The uterus was then incised sharply in a transverse fashion along the lower uterine segment. The incision was extended laterally. The infant's head was delivered atraumatically to the sterile field, followed by the body. The nose and mouth were bulb suctioned. After a delay, the cord was clamped and cut. The infant was handed off the field. Cord blood was collected. The placenta was removed manually and was passed off the field. The uterus was exteriorized and cleared of all clots and debris. The uterine incision was reapproximated using 0 Monocryl in a running, locked fashion. A second, imbricating layer of the same suture was run. Excellent hemostasis resulted as did excellent reapproximation of the normal anatomy. The uterus was returned the abdomen. The pelvis was irrigated copiously with warmed normal saline. Rigorous hemostasis was assured. The fascial layer was reapproximated using 0 Vicryl in a running fashion. The skin was closed with a running, subcuticular stitch of 4 0 Vicryl. Dermaflex was applied externally. Sponge, lap, needle and instrument counts were correct. The patient was taken to the recovery room in stable condition. The infant went to the nursery in stable condition. I was present and scrubbed the entire procedure. Specimen: Yes (Cord blood, placenta) Estimated Blood Loss: 1,575 Urine Output: 150 Drains: Yes (Gregg) Packing: No Pathology: Yes (Placenta) Complications: None Condition: Stable Disposition: PACU Baby Date of : 01/26/25 Time of : 02:00 Gestational Age by Date: 39 gender: Male Weight (pounds): 8 Weight (ounces): 3 presentation: vertex Placenta delivery description: Expressed and Normal Configuration Cord Vessel Description: 3 Vessels and Delayed Cord Clamping score one minute: 8 score five minutes: 9
--- NOTE | 2025-01-26 02:50 | PM.OBDSVD ---
DS: Admitting Diagnosis Discharge Date 01/29/25 Admitting Diagnosis IUP at 38 weeks Gestational hypertension DS: Discharge Diagnosis Discharge Diagnosis (1) delivery delivered: Code(s): O82 - Encounter for delivery without indication Status: Acute (2) Gestational hypertension: Qualifiers: Trimester: third trimester Qualified Code(s): O13.3 - Gestational [-induced] hypertension without significant proteinuria, third trimester Code(s): O13.9 - Gestational [-induced] hypertension without significant proteinuria, unspecified trimester Status: Acute OB - DS: Summary OB Procedures : NST and PIH Mgmt OB Procedures Intrapartum: OB Procedures: : None Peripartum Data Procedures: Procedures Operation Date: 01/26/25 01:00 <No data on this case meets the specified criteria> Time Spent with Patient Time attestation: Total time spent providing and/or coordinating discharge services: DS: Data Data Completed and Pending Labs on day of discharge: Labs from last 24 hours 01/25/25 17:51 WBC 15.7 H RBC 4.15 L Hgb 11.3 L Hct 35.9 L MCV 86.5 MCH 27.2 MCHC 31.5 L RDW 16.7 H Plt Count 243 MPV 10.1 Immature Gran % (Auto) 0.5 Neut % (Auto) 84.8 H Lymph % (Auto) 9.8 L [place] % (Auto) 4.8 Eos % (Auto) 0.0 Baso % (Auto) 0.1 L Lymph # (Auto) 1.54 Cook # (Auto) 0.8 H Eos # (Auto) 0.0 Baso # (Auto) 0.0 Abs Immat Gran (auto) 0.08 H Absolute Neuts (auto) 13.3 H Absolute Nucleated RBC 0.000 Nucleated RBC % 0.0 Sodium 134 L Potassium 4.2 Chloride 105 Carbon Dioxide 22 Anion Gap 7 BUN 4 L Creatinine 0.57 L Estim Creat Clear Calc 135 Estimated GFR > 60 Glucose 78 Calcium 8.6 Total Bilirubin 1.3 AST 24 ALT 12 Alkaline Phosphatase 116 Total Protein 6.2 L Albumin 3.2 L Discharge Plan Discharge Attending physician on discharge: Javed Casas Discharging Clinician: Javed Casas Patient Disposition: Home Activity: may shower, may drive after 2 weeks and pelvic rest Diet: regular Wound Care Instructions: incision open to air Discharge Instructions: Call or return if temperature above 100.4? F, increased abdominal pain, increased vaginal bleeding or any new problems. Patient Language: Yoruba Stand Alone Forms: General Discharge Information Follow-up/Referrals: Jorge Luis Dye MD [Physician, [employer]] - Call for Appointment Discharge Medications: New ibuprofen 600 mg tablet 600 mg PO Q6H PRN (Reason: cramps) Qty: 30 0RF nifedipine [Procardia XL] 30 mg tablet extended release 24hr 30 mg PO DAILY Qty: 30 0RF oxycodone-acetaminophen [Endocet] 5-325 mg tablet 1 - 2 tablet PO Q6H PRN (Reason: pain) Qty: 30 0RF Continued cetirizine [Zyrtec] 10 mg tablet 10 mg PO DAILY PRN (Reason: Allergy Symptoms) PNV [id number] 30 mg iron-10 mg iron-1 mg capsule 1 cap PO DAILY ferrous sulfate 325 mg (65 mg iron) tablet 325 mg PO DAILY Qty: 90 2RF pantoprazole [Protonix] 40 mg tablet,delayed release (DR/EC) 40 mg PO DAILY Qty: 90 1RF escitalopram oxalate 10 mg tablet 10 mg PO DAILY Qty: 90 1RF Discontinued aspirin 81 mg tablet,chewable 81 mg PO DAILY pyridoxine (vitamin B6) 50 mg capsule 50 mg PO DAILY ondansetron HCl 4 mg tablet 4 mg PO Q8H PRN (Reason: nausea and vomiting) Qty: 30 0RF Date of admission: 01/23/25 16:14 Primary Care Provider: Rocael Burr Admitting Provider: Javed Casas Attending physician on admission: Javed Casas Condition: Stable
[2025-01-26] MEDS: KETOROLAC 15 MG/ML VIAL (*BKC) IV PUSH ×4 (03:37→20:56)
--- NOTE | 2025-01-26 05:36 | OBPPTRN ---
Patient transferred to post room #288 via stretcher. Support person present. Oriented to unit, room, information board, rooming in, admission packet and security measures. Patient verbalizes understanding.
[2025-01-26] MEDS: SIMETHICONE 80 MG TAB.CHEW PO ×3 (08:27→17:46)
[2025-01-26] MEDS: DOCUSATE SODIUM 100 MG CAPSULE PO ×2 (08:27→17:46)
[2025-01-26] MEDS: MULTIVIT/MIN/PREN/FOL AC/IRON TABLET 1 TAB PO (08:27)
[2025-01-26] MEDS: ACETAMINOPHEN 500 MG TABLET 1000 MG PO ×3 (08:28→20:57)
[2025-01-26] MEDS: PANTOPRAZOLE 40 MG TABLET PO (08:28)
--- NOTE | 2025-01-26 09:02 | PC.NURSE ---
0900. Night RN Nancy verbally confirmed that she gave the 0400 dose of cytotec 01/26. The dose was undocumented on the APR, this RN confirmed with patient she did receive the dose at 0400.
[2025-01-26] MEDS: DEXTROSE 5%/0.45% SOD CHL 1,000 ML 125 ML IV CONT (09:19)
[2025-01-26] MEDS: oxyCODONE HCL (*CRX) 5 MG TAB IR PO ×2 (11:33→18:53)
[2025-01-26] MEDS: LIDOCAINE 5% PATCH 1 PATCH TRANSDERM (20:01)
[2025-01-26] MEDS: ESCITALOPRAM OXALATE 10 MG TABLET PO (20:57)
[2025-01-27] MEDS: IBUPROFEN 600 MG TABLET PO ×4 (02:36→21:53)
[2025-01-27] MEDS: SIMETHICONE 80 MG TAB.CHEW PO ×4 (02:37→16:03)
[2025-01-27] MEDS: ACETAMINOPHEN 500 MG TABLET 1000 MG PO ×4 (02:37→21:53)
[2025-01-27 02:43] VITALS: BP 147/97; PULSE 101; RESP 16; TEMP 37.1; O2SAT 97
[2025-01-27] MEDS: oxyCODONE HCL (*CRX) 5 MG TAB IR PO ×3 (05:45→21:26)
[2025-01-27 05:47] LABS: Hematocrit 25.7 % (37.0-47.0); Hemoglobin 8.0 g/dL (12.0-15.0); Immature Granulocyte Percent A 1.1 % (0-0.5); Lymphocytes Absolute Auto 1.89 K/mm3 (0.9-3.2); Mean Corpuscular HGB Conc 31.1 g/dl (32-36); Mean Corpuscular Hemoglobin 27.3 pg (26-34); Mean Corpuscular Volume 87.7 fl (80-100); Nucleated Red Blood Cells Absolute Auto 0.000 K/mm3 (0.0-0.012); Nucleated Red Blood Cells Perc 0.0 % (0.0-0.2); Platelet Count Result 216 k/mm3 (150-375); Red Blood Count 2.93 M/mm3 (4.2-5.4); White Blood Count 14.7 K/mm3 (4.5-10.0)
[2025-01-27 08:00] VITALS: BP 143/93; PULSE 97; RESP 18; TEMP 36.6; O2SAT 97
[2025-01-27] MEDS: DOCUSATE SODIUM 100 MG CAPSULE PO ×2 (08:44→16:02)
[2025-01-27] MEDS: MULTIVIT/MIN/PREN/FOL AC/IRON TABLET 1 TAB PO (08:44)
[2025-01-27] MEDS: PANTOPRAZOLE 40 MG TABLET PO (08:45)
--- NOTE | 2025-01-27 10:09 | PM.OBPNVD ---
OB - PN: Subj Subjective Date/time seen: 01/27/25 10:09 Narrative: Pain OK. BP have been a little elevated. Started nifedepine 30 XL daily. Tolerating diet. She'd like a circumcision for her son. OB - PN: Obj Data Labs 01/27/25 05:37 01/25/25 17:51 Labs: Laboratory Results - last 24 hr 01/27/25 05:37 WBC 14.7 H RBC 2.93 L Hgb 8.0 L D Hct 25.7 L MCV 87.7 MCH 27.3 MCHC 31.1 L RDW 16.7 H Plt Count 216 MPV 9.8 Immature Gran % (Auto) 1.1 H Neut % (Auto) 80.6 H Lymph % (Auto) 12.9 L [place] % (Auto) 4.8 Eos % (Auto) 0.5 Baso % (Auto) 0.1 L Lymph # (Auto) 1.89 [place] # (Auto) 0.7 H Eos # (Auto) 0.1 Baso # (Auto) 0.0 Abs Immat Gran (auto) 0.16 H Absolute Neuts (auto) 11.8 H Absolute Nucleated RBC 0.000 Nucleated RBC % 0.0 OB - PN A/P Plan day: 1 Comments: A: POD#1, doing well. Gestational hypertension. P: Reviewed circ. Continue Procardia XL 30 mg po daily. Routine care. Exam Narrative: AVSS I/O OK ABD soft, nontender, fundus firm. Incision c/d/i. EXT nontender
[2025-01-27 12:15] VITALS: BP 142/102
[2025-01-27 16:00] VITALS: BP 143/99
--- NOTE | 2025-01-27 17:28 | P.PNAN_ITS ---
Anes-Prog Note L&D Date/Time: 01/27/25 17:28 Comfortable throughout: labor and section Neuraxial method: epidural Epidural/Spinal procedure site: clean & non-tender Neuro status: Neuro function grossly intact. Respiratory status: normal Airway patency: baseline Mental status: baseline Post-Op hydration status: normal Vital Signs: Last Vital Signs Temp 36.6 C 01/27/25 08:00 Pulse 97 01/27/25 08:00 Resp 18 01/27/25 08:00 BP 143/99 H 01/27/25 16:00 Pulse Ox 97 01/27/25 08:00 O2 Del Method Room Air 01/26/25 16:40 Pain score (VAS): 2/10 I/O: Intake & Output 01/27/25 01/27/25 01/27/25 07:59 15:59 23:59 Intake Total 150 340 980 Output Total 1000 1000 0189 [facility] [phone] Post-procedural complaints: none Patient feedback: Patient satisfied with anesthetic care.
--- NOTE | 2025-01-27 17:28 | WPDANLDNPN2 ---
Anes-Prog Note L&D-Neuraxial Date/Time: 01/27/25 17:28 Neuraxial medications: epidural PF morphine Opiod-related complaints: none Patient feedback: Patient satisfied with post-operative pain management.
[2025-01-27 19:20] VITALS: BP 123/80; PULSE 95; RESP 16; TEMP 36.6; O2SAT 98
[2025-01-27] MEDS: LIDOCAINE 5% PATCH 1 PATCH TRANSDERM (19:46)
[2025-01-27] MEDS: ESCITALOPRAM OXALATE 10 MG TABLET PO (21:25)
[2025-01-27 22:58] VITALS: BP 137/83; PULSE 92; RESP 16; TEMP 36.5; O2SAT 94
[2025-01-28] MEDS: IBUPROFEN 600 MG TABLET PO ×4 (04:26→21:14)
[2025-01-28] MEDS: ACETAMINOPHEN 500 MG TABLET 1000 MG PO ×4 (04:26→21:14)
[2025-01-28 04:30] VITALS: BP 128/83; PULSE 89; RESP 16; TEMP 36.7; O2SAT 97
[2025-01-28 07:45] VITALS: BP 143/93; PULSE 87; RESP 18; TEMP 36.8; O2SAT 100
--- NOTE | 2025-01-28 09:00 | P.PNOB_ITS ---
OB - PN: Subj Subjective Date/time seen: 01/28/25 09:00 Narrative: Pain OK. Tolerating diet. OB - PN: Obj Data Labs 01/27/25 05:37 01/25/25 17:51 OB - PN A/P Plan Comments: A: POD#2, doing well. BP stable 120-140/80-90 P: Routine care. Exam 2 Narrative: AVSS I/O OK ABD soft, nontender, fundus firm. Incision c/d/i. EXT nontender
[2025-01-28] MEDS: DOCUSATE SODIUM 100 MG CAPSULE PO ×2 (09:21→16:17)
[2025-01-28] MEDS: MULTIVIT/MIN/PREN/FOL AC/IRON TABLET 1 TAB PO (09:21)
[2025-01-28] MEDS: PANTOPRAZOLE 40 MG TABLET PO (09:22)
[2025-01-28] MEDS: SIMETHICONE 80 MG TAB.CHEW PO ×2 (09:22→16:17)
--- NOTE | 2025-01-28 09:46 | S_PTH ---
PATIENT: Nyla Beaulieu LOC: ANHOB2 U#:[id number] AGE/SX: 29/F ROOM: 288 RE01/23/[address]: Javed Casas MD : 1995 BED: 00 DIS: 01/29/2025 SPEC #: [id number] RECD: 01/28/25 10:59 STATUS: IBETH REAdrian #: [id number] MARCEL: 01/28/25 09:[address]: Javed Casas DEPT: [facility] Surgical RECD BY: Franca Magaña ENTERED: 01/28/25 10:59 SP TYPE: Surgical OTHR DR: Rocael Burr MD Tissues: A - Placenta Procedures: Hematoxylin and Eosin Stain Gross and Microscopic Level 5
[2025-01-28 11:48] VITALS: BP 130/91; PULSE 92; RESP 18; TEMP 36.7; O2SAT 99
[2025-01-28 15:59] VITALS: BP 142/94; PULSE 87; RESP 18; O2SAT 100
--- NOTE | 2025-01-28 17:37 | PC.NURSE ---
1040 Introductions were made, then consulted with patient to assess needs related to . Discussed with mother her?plans to feed?her infant and the?experience so far. Per mother infant had not been latching well at the breast and infant had been receiving bottle, she has been pumping and getting 1-3mls with each session, she was using a size 21 flange but it was causing her nipple pain, she switched to the size 24 flange and no pain felt while pumping. Mother would really like to breastfeed, CLC RN encouraged her to call out for assistance with the next feeding and we would put to breast. Resources provided for inpatient and outpatient services with the feeding sheet, mom/baby guide and name written on the communication board. Mother voiced understanding of information and will call if there is a request for assistance. Reported to the Primary RN. 1300 CLC RN called to room to assist with , infant was crying and rooting around, gave 10mls of formula with bottle to calm before latching and then we reviewed working with the infant, supporting breast, protecting her nipples with an optimal deep latch, good positioning, and good hand washing. Encouraged understanding the benefits of skin to skin, responding to feeding cues, frequencies of feeding 8-12 times in 24 hours (approximately 2-3 hours), duration of feedings, milk production, intake/output feeding sheet and signs of adequate intake encouraging swallowing at the breast. Reviewed positioning and alignment, supporting breast, off-centered (asymmetrical latch) and leading with the chin with big, open, wide gape. Infant latched optimally to the [left] breast in [football] position. Education given to the mother of how to visualize the suckling (with good rocking jaw motion) swallows (dropping of the lower jaw) and how to listen for drinking at the breast (the ka sound). The was [able] to maintain latch without discomfort to mother. Nipple care reviewed with optimal latch, good positioning and using clean hands when touching her breast. Resources used to facilitate learning were used from the [visual handouts/ tool/mom and baby guide]. Mother voiced understanding of the education shared, to call for assistance if the does not latch or if there is discomfort with . Reported to the Primary RN.
[2025-01-28 20:05] VITALS: BP 140/87; PULSE 100; RESP 16; TEMP 37.2; O2SAT 100
[2025-01-28] MEDS: ESCITALOPRAM OXALATE 10 MG TABLET PO (21:15)
[2025-01-28] MEDS: LIDOCAINE 5% PATCH 1 PATCH TRANSDERM (21:15)
[2025-01-29 00:49] VITALS: BP 139/88
[2025-01-29 04:30] VITALS: BP 137/88
[2025-01-29] MEDS: ACETAMINOPHEN 500 MG TABLET 1000 MG PO ×2 (04:30→11:24)
[2025-01-29] MEDS: IBUPROFEN 600 MG TABLET PO ×2 (04:30→11:24)
[2025-01-29 07:25] VITALS: BP 147/89; PULSE 85; RESP 18; TEMP 36.6; O2SAT 99
[2025-01-29] MEDS: SIMETHICONE 80 MG TAB.CHEW PO ×2 (08:02→11:24)
[2025-01-29] MEDS: PANTOPRAZOLE 40 MG TABLET PO (08:02)
[2025-01-29] MEDS: DOCUSATE SODIUM 100 MG CAPSULE PO (08:03)
[2025-01-29] MEDS: MULTIVIT/MIN/PREN/FOL AC/IRON TABLET 1 TAB PO (08:03)
--- NOTE | 2025-01-29 09:20 | PC.NURSE ---
Consulted with mother concerning needs and she shared her ability to independently latch infant optimally without pain, she is also pumping and bottle feeding as well. Mother is feeding appropriately for growth of infant and understands stimulating infant to eat if needed. has had appropriate feedings in the last 24 hours meets the outcomes for weight, output, blood sugar and jaundice at this time. Reinforced understanding of milk production, transition of milk, signs of adequate intake, transition of stool, prevention/relief of engorgement, plugged ducts, mastitis, responsive watching for feeding cues, the different methods of stimulating to breastfeed 1-3 hours after the start of the last feeding, community resources, and when to call a provider using the resource of the feeding sheet along with the mom and baby guide. Mother voiced understanding of the information shared, is confident to continue effectively her infant at home, when to call for assistance, denies any additional assistance or education at this time. Reported to the Primary RN.
--- NOTE | 2025-01-29 09:24 | P.PNOB_ITS ---
OB - PN: Subj Subjective Date/time seen: 01/29/25 09:24 Narrative: Pain OK. Tolerating diet. Would like to go home. OB - PN: Obj Data Labs 01/27/25 05:37 01/25/25 17:51 OB - PN A/P Plan day: 3 Comments: A: POD#3, doing well. Gestational HTN, bp stable. P: Home to f/u 4 weeks. Exam 2 Narrative: AVSS (BP 140/80) ABD soft, nontender, fundus firm. Incision c/d/i. EXT nontender
[2025-01-29 12:02] VITALS: BP 145/95; PULSE 96; RESP 16; TEMP 36.9; O2SAT 98
[2025-01-30 09:44] VITALS: BP 139/93; PULSE 78; RESP 18; TEMP 37; O2SAT 100
== END 2025-01-29 14:21 | disposition home or self-care (01) | DRG 788 ==
LOC: ANHLDR 01-26 02:52 → ANHOB2 01-26 05:37
PROVIDERS: Admitting Provider Obstetrics & Gynecology; PCP Family Medicine; Visit Provider Obstetrics & Gynecology
PROC: 10D00Z1 Extraction of Products of Conception, Low, Open Approach (ICD-10-PCS; CPT 59514; principal; 2025-01-26 01:00)
DX: O13.4 Gestational [pregnancy-induced] hypertension without significant proteinuria, complicating childbirth (principal); Z37.0 Single live birth; Z3A.38 38 weeks gestation of pregnancy; O62.1 Secondary uterine inertia
CPT/HCPCS: 36415; 80053; 81001; 82570; 84156; 84550; 85025; 86850; 86900; 86901; 87086; 88307; A9270; J0290; J0675; J1100; J1200; J1885; J2003; J2004; J2274; J2405; J2590; J2795; J3290; J7030; J7120

== ENCOUNTER 2025-02-11 13:46 | Outpatient (CLI) | payer OTHER, SELFPAY ==
--- NOTE | ~2025-02-11 | CT_ITS ---
EXAMINATION: CT abdomen pelvis w con DATE: 02/11/2025 14:25 INDICATION: Unspecified abdominal pain TECHNIQUE: Computed tomography (CT) of the abdomen and pelvis was performed with 100 mL Omnipaque-350 intravenous contrast. Automated exposure control and iterative reconstruction technique were employed. The dose-length product was 454.73 mGy-cm. COMPARISON: 01/02/2024 FINDINGS: Mild dependent atelectasis in the right lower lobe. Calcite nodules at the lingula consistent with old granulomatous disease. Heart size is normal. No pericardial or pleural effusion. Liver, gallbladder, spleen, pancreas, bilateral adrenal glands and kidneys are normal. Bowels including the appendix are normal. Bladder is normal. There is fluid and gas within the endometrial complex within the enlarged post gravid uterus likely related to recent section with section wound along the anterior lower uterine segment and extending across the anterior pelvic wall. 4.1 cm fibroid at the right-sided the uterine fundus. Small amount of ascites in the pelvis predominantly anterior to the ut erine fundus. No abscess or free intraperitoneal gas. Bilateral adnexa are unremarkable. No pathologically enlarged abdominal or pelvic lymphadenopathy. Bones are unremarkable. IMPRESSION: 1. Changes consistent with recent section including some gas and fluid within the endometrial complex. 2. Likely incidental 4.1 cm uterine fibroid. Reviewed, dictated and finalized at location A. TROOM CLERK
== END 2025-02-11 13:47 | disposition home or self-care (01) ==
PROVIDERS: PCP Family Medicine; Visit Provider Obstetrics & Gynecology
DX: R10.9 Unspecified abdominal pain (principal)
CPT/HCPCS: 74177; Q9967

== ENCOUNTER 2025-02-26 10:06 | Outpatient (CLI) | payer OTHER, SELFPAY ==
[2025-02-26 10:19] LABS: Hematocrit 38.2 % (37.0-47.0); Hemoglobin 11.6 g/dL (12.0-15.0); Mean Corpuscular HGB Conc 30.4 g/dl (32-36); Mean Corpuscular Hemoglobin 26.6 pg (26-34); Mean Corpuscular Volume 87.6 fl (80-100); Platelet Count Result 342 k/mm3 (150-375); Red Blood Count 4.36 M/mm3 (4.2-5.4); White Blood Count 8.6 K/mm3 (4.5-10.0)
--- OUTSIDE RECORDS SUMMARY | 2025-02-26 10:32 | XMS_ITS | Clinical Summary ---
Author Organization [facility] Address [address] [place] [address] Care Team Providers Care Fire Controlman Name Role Phone Rocael Burr MD Primary Care Provider [phone] Source Comments [facility],non-owned Affiliates and Associated Physician Practices is amultiple site organization consisting of ambulatory clinics and hospital sitesin [place], [place], [place] and [place]. This disclosure is being madepursuant to the Care Everywhere program and may not contain all information available regarding this patient. Last updated 17.[facility] Allergies Active Allergy Reactions Criticality Noted Date Comments Cephalosporins Rash Low 05/09/2012 [place] Rash Low 05/09/2012 Nickel Rash Low 05/09/2012 Medications * Be aware that medications may not be up to date on this document. Alwaysverify current medications with the patient. No known medications Active Problems Estimated Date of Delivery Comme nts Yes 02/06/2025 Based on Ultraso und No known active problems Encounters Date Type Department Care Team Description 01/11/2025 7:30 AM WEAVING INSTRUCTOR - 01/11/2025 11:59 PM WEAVING INSTRUCTOR Hospital Encounter [facility] [address] [place] [address] Erin Adair MD DRY SAND MOLDER Discharge Disposition: Home or Self Care 12/07/2024 7:24 AM CDT - 12/07/2024 11:59 PM CDT Hospital Encounter [facility] Maternal & Care [address] [place], [place] [id number] Jamel Hernandez MD Discharge Disposition: Home or [...] on file Legal Sex Female 5:38 AM WEAVING INSTRUCTOR Gender Identity Not on file Sexual Orientation [...] SONOGRAM - COMPLETE Routine 01/11/2025 7:33 AM WEAVING INSTRUCTOR Encounter for ultrasound to assess growth (HCC) resulting from in vitro fertilization in third trimester (HCC) 36 weeks gestation of (HCC) SONOGRAM - COMPLETE Routine 12/07/2024 7:32 AM CDT resulting from in vitro fertilization in second trimester (HCC) Encounter for ultrasound to assess growth (HCC) 31 weeks gestation of (HCC) from Last 3 Months Results * Sonogram - Complete (01/11/2025 7:33 AM WEAVING INSTRUCTOR) Only the most recent of2 resultswithin the [...] 7 lb 15 oz EFW by Hadlock ([id number]) LGA Growth Overview Exam date GA BPD (mm) HC (mm) AC (mm) FL (mm) HL (mm) EFW (g) 09/25/2024 20w 4d 50.6 78% 185.4 56% 166 77% 34.4 51% 33.1 72% 409 79% 11/09/2024 27w 0d 70.8 83% 264.3 79% 256.6 98% 48.4 16% 43.7 17% 1231 90% 12/07/2024 31w 0d 81.2 85% 304.6 88% 294.1 96% 60.6 50% 53.6 60% 2059 91% 01/11/2025 36w 0d 93.3 95% 346.5 [...] of resulting from assisted reproductive technology Procedures 05032: US Preg Uterus Follow Up [employer] PACS Anatomical Region Laterality Modality Other 01/11/2025 7:33 AM WEAVING INSTRUCTOR Jorge Luis Lisa MD [facility] ORDERABLES Edited Result - Final from Last 3 Months Insurance [facility] SELF PAY NO INSURANCE Member Subscriber Plan / Payer (Ef fective for All Dates) Name:Nyla Luevano Member ID:Not on file Relation to Subscriber:Not on file Name:NYLA LUEVANO Subscriber ID:Not on file (Home) Address: [address] [place] [address] [place] [address] Payer ID:Not on file Group ID:Not on file Type:Self Pay Address: [place], [place] [facility] Care Teams Fire Controlman Relationship Specialty Start Date End Date Rocael Burr MD PCP - General Family Medicine 04/24/12
--- OUTSIDE RECORDS SUMMARY | 2025-02-26 10:32 | XMS_ITS | Clinical Summary ---
Author Organization [facility] Address [address] [place] [address] Phone Care Team Providers Care Spraying Machine Operator Name Role Phone Rocael Burr MD Primary Care Provider [phone] Immunizations Immunization Administration Dates Next Due (PFIZER)(12 YR UP) COVID-19 VACCINE - EMERGENCY USE AUTHORIZATION, MRNA, [id number](PF) 30 MCG/0.3 ML IM SUSP 03/12/2020,02/20/2020 Influenza [...] 2017 PAP SMEAR 2017 INFLUENZA VACCINE (#1) 2024 , 12/18/2019, 12/02/2018 COVID-19 Vaccine ( - 2024-2 6 season) 2024 03/12/2020, 02/20/2020 HPV VACCINES (No Doses Required) Completed Care Teams Spraying Machine Operator Relationship Specialty Start Date End Date Rocael Burr MD [address] [place] [phone] PCP - General Family Practice 07/30/19
--- OUTSIDE RECORDS SUMMARY | 2025-02-26 10:32 | XMS_ITS | Clinical Summary ---
Author Organization [facility] [facility] [employer] [facility] [facility] Address [address] [place] [address] Care Team Providers Care Mat Inspector Name Role Phone Pcp, No Primary Care Provider [phone] Immunizations Immunization Administration Dates Next Due Pfizer Abrysvo Rsv 0.5ml Reconstituted 5 Social History Tobacco Use Types Packs/Day Years Used Date Smoking Tobacco: Never Assessed Comments Unknown Sex and Gender Information Value Date Recorded Sex Assigned at Not on file Legal Sex Female 10:37 AM EST Gender Identity Not on file Sexual Orientation Not on file Plan of Treatment Not on file Medical Devices Not on file Care Teams Mat Inspector Relationship Specialty Start Date End Date Pcp, No PCP - General Family Medicine 01/27/20
--- OUTSIDE RECORDS SUMMARY | 2025-02-26 10:32 | XMS_ITS | Clinical Summary ---
Author Organization [facility] Address [address] [place] [address] Care Team Providers Care Websphere Commerce Developer Name Role Phone Rocael Burr MD Primary Care Provider Allergies Active Allergy Reactions Criticality Noted Date Comments Cephalosporins Rash Medium 05/09/2012 [place] Rash Medium 05/09/2012 Nickel Rash Medium 05/09/2012 [...] Blue Team Referring Provider: Jorge Luis Dye [phone] [] or Medicare Insurance [x] Dating Criteria: [...] [] MOC: [] Method of feeding: [] Airfreight Operations Agent (specifically which provider): [] PP Depression Discussed: [] PP visits scheduled: Vaccines [] Flu Shot (Sep-Jan): [] COVID vaccine: [] Tdap (27-36wks): [] RSV vaccine (32-36wks): [] PP HPV vaccine counseling (<=26 yo): Maternal varicella, non-immune 08/13/2024 Overview (08/20/2024): Offer varivax Uterine fibroids [facility] 08/13/2024 Overview (08/22/2024): Imaging today confirms a [...] (02/12/2021): Added automatically from request for surgery [id number] Epigastric pain 02/12/2021 Overview (02/12/2021): Added automatically from request for surgery [id number] Colitis 02/12/2021 Overview (02/12/2021): Added automatically from request for surgery [id number] Multiple food allergies 03/05/2019 Eosinophilic esophagitis 08/22/2018 Environmental allergies 02/16/2018 GERD (gastroesophageal reflux disease) 8 Food impaction of esophagus 10/03/2017 Estimated Date of Delivery Comme nts Yes 02/08/2025 Based on Day 5 E mbryo Transfer Encounters Date Type Department Care Team Description 12/07/2024 Immunization [facility] Medicine Occupational Health [address] [facility] [address] [place] [address] Ami Sanchez RN from Last 3 Months [...] Diabetes Mother Briana Goodwin TOVA disease Mother Brinaa Goodwin Hypertension Mother Briana Goodwin Relation Name [...] Assigned at Female 05/02/2018 8:22 AM SUPERVISOR BILLPOSTING Legal Sex Female 2:25 AM SUPERVISOR BILLPOSTING Gender Identity Female 05/02/2018 8:22 AM SUPERVISOR BILLPOSTING Sexual Orientation Straight 05/02/2018 8: 22 AM SUPERVISOR BILLPOSTING Obstetrics History Para Term AB IAB SAB Ectopic Multiple Livin g Live Births 1 0 0 0 0 0 0 0 0 0 0 Date Outcome GA Total Labor Labor/2nd/3rd Weight Sex Type Anes PTL Tamara A1 A5 Name Clin Current Summary Episode Dates Number of Fetuses Estimated Date of Delivery 08/13/2024 - Present (02/26/2025) 02/08/2025 (set by Amanda Ames MD on 08/22/2024 based on Day 5 Embryo Transfer on 05/23/2024) Dating Summary Based On BETTYE GA Diff Ultrasound on 07/30/2024 02/06/2025 +2d GA:12w5d Ultrasound on 06/22/2024 02/08/2025 Same GA:7w0d Day 5 Embryo Transfer on 05/23/2024 02/08/2025 Working Vitals Pregravid Weight Height TWG (As of 02/26/2025) Pregrav id BMI 160 cm (5' 3) [...] muscular dystrophy. Allergies Allergen Reactions Cephalosporins Rash [place] Rash Nickel Rash Social History Tobacco Use [...] 08/02/2024, 025 Influenza Vaccine Completed 12/07/2024, , 12/10/2021, Additional history exists Pneumococcal vaccine <65 Aged [...] Most Recently Relevant to Health Maintenance Insurance [employer] [employer] [place] Member Subscriber Plan / Payer (Ef fective 2021-Present) Name:Nyla Beaulieu Member ID:[id number] Relation to Subscriber:Self Name:Nyla Beaulieu Subscriber ID:[id number] Payer ID:[id number] (NAIC) Type:[employer] ALLI[employer] Address: [address] EM[employer]ES [employer] Member Subscriber Plan / Payer (Ef fective 2022-Present) Name:Nyla Beaulieu Relation to Subscriber:Self Name:Nyla Beaulieu Payer ID:[id number] (NA) Type:[facility] HMO/PPO Address: [place] [id number] [place] [id number] Advance Directives For more information, please contact: [phone] * Full Code (Latest Code Status on File) Date Activated Date Inactivated Comments 05/18/2024 6:33 AM 05/19/2024 5:00 AM * Full Code Date Activated Date Inactivated Comments 03/08/2018 7:36 AM 03/08/2018 12:14 PM * Full Code Date Activated Date Inactivated Comments 10/03/2017 11:55 PM 10/04/2017 5:29 AM Care Teams Websphere Commerce Developer Relationship Specialty Start Date End Date Rocael Burr MD [address] [place] [id number] PCP - General Family Medicine 02/16/18
[2025-02-26 11:15] LABS: Thyroid Stimulating Hormone Reflex 1.060 uIU/mL (0.465-4.68)
== END 2025-02-26 10:07 | disposition home or self-care (01) ==
LOC: ANHLAB 10:07
PROVIDERS: PCP Family Medicine; Visit Provider Obstetrics & Gynecology
DX: D64.9 Anemia, unspecified (principal); R63.4 Abnormal weight loss
CPT/HCPCS: 36415; 84443; 85027